=== PATIENT | female | born 1935 | race Caucasian/White ===

== ENCOUNTER → 2018-03-13 15:23 | Outpatient (CLI) | payer MEDICARE, OTHER, SELFPAY ==
[2018-03-13 16:33] LABS: Add Manual Diff / Slide Review NO; Alanine Aminotransferase 31 IU/L (9-52); Albumin 4.1 g/dL (3.5-5.0); Albumin Globulin Ratio 1.2 (1.0-2.8); Alkaline Phosphatase 70 U/L (38-126); Aspartate Aminotransferase 15 IU/L (14-36); BUN Creatinine Ratio 18.8 (6-22); Basophils Percent Auto 0.5 % (0-2); Bilirubin Total 0.5 mg/dL (0.2-1.3); Calcium 10.2 mg/dL (8.4-10.2); Eosinophils Percent Auto 1.1 % (2-4); Estimated Glomerular Filt Rate > 60.0 mL/min (>60); Globulin 3.3 g/dL (1.7-4.1); Glucose 90 mg/dL (80-110); HEMOLYSIS < 15 (0-50); Hemoglobin 13.9 g/dL (12.0-16.0); Lymphocytes Percent Auto 16.6 % (25-40); Mean Corpuscular HGB Conc 33.8 % (30-36); Mean Corpuscular Hemoglobin 29.4 PG (26-34); Monocytes Percent Auto 8.6 % (3-14); Neutrophils Absolute Auto 7900 /uL (3000-5900); Neutrophils Percent Auto 73.2 % (50-75); Platelet Count 367 X10^3/uL (150-400); Potassium 4.9 mmol/L (3.4-5.1); Red Blood Cell Count 4.71 X10^6/uL (4.0-5.2); Red Cell Distribution Width 15.3 % (11.6-14.8); Sodium 139 mmol/L (137-145); Total Protein 7.4 g/dL (6.3-8.2); White Blood Cell Count 10.9 X10^3/uL (4.5-11.0)
[2018-03-19 15:17] LABS: Abnormal Protein Band 1 0.4 g/dL (NONE DETECTED); Albumin 3.9 g/dL (3.8-4.8); Alpha 1 Globulin 0.3 g/dL (0.2-0.3); Alpha 2 Globulin 0.7 g/dL (0.5-0.9); Beta 1 Globulin 0.4 g/dL (0.4-0.6); Gamma Globulin 1.3 g/dL (0.8-1.7); Protein, Total 6.9 g/dL (6.1-8.1)
== END ==
PROVIDERS: Family Provider Family Medicine; PCP Family Medicine; Visit Provider Internal Medicine Hematology & Oncology
DX: D47.2 Monoclonal gammopathy (principal)
CPT/HCPCS: 36415; 80053; 84155; 84165; 85025

== ENCOUNTER → 2018-07-01 16:02 | Outpatient (CLI) | payer MEDICARE, OTHER, SELFPAY ==
[2018-07-01 17:30] LABS: Add Manual Diff / Slide Review NO; Basophils Percent Auto 0.4 % (0-2); Eosinophils Percent Auto 1.4 % (2-4); Hematocrit 39.1 % (36-46); Hemoglobin 12.8 g/dL (12.0-16.0); Lymphocytes Percent Auto 15.8 % (25-40); Mean Corpuscular HGB Conc 32.8 % (30-36); Mean Corpuscular Hemoglobin 29.3 PG (26-34); Mean Corpuscular Volume 89.3 fL (80-100); Monocytes Percent Auto 8.6 % (3-14); Neutrophils Absolute Auto 8400 /uL (3000-5900); Neutrophils Percent Auto 73.8 % (50-75); Platelet Count 379 X10^3/uL (150-400); Red Blood Cell Count 4.38 X10^6/uL (4.0-5.2); Red Cell Distribution Width 14.4 % (11.6-14.8); White Blood Cell Count 11.4 X10^3/uL (4.5-11.0)
[2018-07-01 18:05] LABS: Alanine Aminotransferase 17 IU/L (9-52); Albumin Globulin Ratio 1.4 (1.0-2.8); Alkaline Phosphatase 81 U/L (38-126); Aspartate Aminotransferase 13 IU/L (14-36); BUN Creatinine Ratio 23.8 (6-22); Bilirubin Total 0.4 mg/dL (0.2-1.3); Blood Urea Nitrogen 19 mg/dL (7-17); Carbon Dioxide 29 mmol/L (22-32); Chloride 105 mmol/L (98-107); Estimated Glomerular Filt Rate > 60.0 mL/min (>60); Globulin 2.9 g/dL (1.7-4.1); Glucose 93 mg/dL (80-110); HEMOLYSIS < 15 (0-50); Sodium 143 mmol/L (137-145); Total Protein 6.9 g/dL (6.3-8.2)
[2018-07-04 13:43] LABS: Abnormal Protein Band 1 0.4 g/dL (NONE DETECTED); Albumin 3.8 g/dL (3.8-4.8); Alpha 1 Globulin 0.3 g/dL (0.2-0.3); Alpha 2 Globulin 0.7 g/dL (0.5-0.9); Beta 1 Globulin 0.4 g/dL (0.4-0.6); Gamma Globulin 1.2 g/dL (0.8-1.7); Protein, Total 6.6 g/dL (6.1-8.1)
== END ==
PROVIDERS: Family Provider Family Medicine; PCP Family Medicine; Visit Provider Nurse Practitioner Gerontology
DX: D47.2 Monoclonal gammopathy (principal)
CPT/HCPCS: 36415; 80053; 84155; 84165; 85025

== ENCOUNTER 2018-07-15 15:20 | Oncology outpatient (ONC) | payer MEDICARE, OTHER, SELFPAY ==
[2018-07-15 16:15] VITALS: BP 135/58; PULSE 76; RESP 20; TEMP 37.1; O2SAT 98
--- NOTE | 2018-07-15 16:18 | ONC.PN ---
PN -Subjective Interval history: Diagnosis: MGUS Previous treatment: None Interval history Patient is an 83-year-old woman who returns today for follow-up of MGUS. Since her last visit here, she has been feeling reasonably well. She has had some swelling in her ankles and also has noticed some fatigue. Her appetite and energy level of otherwise been fair. She denies any worsening shortness of breath or cough. No chest pain. She has not noted any adenopathy. She has not been losing any weight. Her past medical history is otherwise notable for hypercholesterolemia hypertension and COPD. Her medications include Spiriva lorazepam atenolol albuterol Home Medications and Allergies Home Medications Medication Instructions Recorded Confirmed Type Fish Oil (Fish Oil 500 MG Softgel) 500 mg PO Q DAY #0 02/13/12 05/25/18 History ascorbic acid (vitamin C) 500 mg PO QDAY #0 02/13/12 05/25/18 History furosemide 20 mg PO QDAY #0 11/11/16 05/25/18 History atenolol 25 mg PO QDAY #30 tab 12/11/16 05/25/18 Rx polyethylene glycol 3350 [Miralax] 17 gm PO QDAY #12 gm 01/21/18 05/25/18 Rx [VITAMIN D] 1 tab PO QDAY #0 02/10/18 05/25/18 History potassium chloride ER 10 mEq 10 meq PO DAILY 05/25/18 05/25/18 History capsule,extended release Allergies Allergy/AdvReac Type Severity Reaction Status Date / Time piroxicam [PIROXICAM] Allergy Intermediate I FELT Verified 03/23/18 12:04 VERY CRAZY AND NERVOUS WITH IT codeine [CODEINE] Allergy Mild MOOD SWINGS Verified 03/23/18 12:04 Sulfa (Sulfonamide AdvReac Unknown gas Verified 03/23/18 12:04 Antibiotics) [SULFA (SULFONAMIDE ANTIBIOTICS)] Exam - Constitutional positive no acute distress, positive thin - Routine HEENT Exam Head: Present: normocephalic, atraumatic Eye: Present: EOMI, PERRL. Absent: conjunctival icterus, scleral injection ENT: Present: mucous membranes moist, oropharynx clear - Routine Neck Exam Present: supple. Absent: lymphadenopathy, thyromegaly - Routine Respiratory Exam Present: Clear to auscultation bilaterally. Absent: rales, wheezes - Routine Cardiovascular Exam Present: RRR, S1, S2. Absent: murmur - Routine Abdominal Exam Present: soft, normoactive bowel sounds. Absent: tenderness, organomegaly, mass - Routine Extremities Exam Present: edema. Absent: cyanosis, clubbing Comments: She has 1+ lower extremity edema more so on the left than on the right. - Routine Back/Spine Exam Back/Spine: Absent: paraspinal tenderness, vertebral tenderness - Routine Skin Exam Present: intact. Absent: petechiae, rash - Routine Neurological Exam Present: alert, oriented X3 - Routine Psychiatric Exam Present: normal affect, normal thought process Results - Labs On July 01 her white count was 11.4 hemoglobin 12.8 hematocrit 39.1 platelets [id number] %period% creatinine was 0.8. Calcium was 10.0. Serum protein electrophoresis showed a stable paraprotein at 0.4 grams/deciliter. - Imaging Additional studies: Procedures Injection of antibiotic (10/18/14) Injection of steroid (10/18/14) Injection or infusion of other therapeutic or prophylactic substance (10/18/14) Assessment and Plan (1) MGUS (monoclonal gammopathy of unknown significance) Problem details: Patient is an 83-year-old woman with a history of MGUS. She has no evidence of progression and no symptoms attributable to her paraprotein. She will return to clinic in 1 year for follow-up. Current visit: Yes Status: Acute
== END 2018-07-16 12:00 ==
PROVIDERS: Family Provider Family Medicine; PCP Family Medicine; Visit Provider Internal Medicine Hematology & Oncology
DX: D47.2 Monoclonal gammopathy (principal)
CPT/HCPCS: 99214

== ENCOUNTER 2018-08-26 12:48 | Emergency (ER) | payer MEDICARE, OTHER, SELFPAY ==
[2018-08-26 13:07] VITALS: BP 105/60; PULSE 75; RESP 16; TEMP 36.8; O2SAT 98
--- NOTE | 2018-08-26 13:55 | PC.NURSE ---
Pt has a triangular shaped skin tear on left wrist from her cat attempting to hang on to her last night so he didn't fall off couch.
--- NOTE | 2018-08-26 13:57 | ED.WOUNDLAC ---
HPI - Wound/Laceration <ALICIA Gee - Last Filed: 08/26/18 21:55> General Chief Complaint: Wound/Laceration Stated Complaint: left hand injury, skin tear Time Seen by Provider: 08/26/18 13:56 Source: patient Mode of arrival: ambulatory Limitations: no limitations History of Present Illness HPI narrative: 83-year-old female with history of COPD and is a former smoker here for complaint of a skin tear to her left wrist after her cat fell and accidentally scratched her to the left wrist. She reports that this incident happened last night. They treated the wound with antibiotic ointment last night. She states that there is some redness to the area around the skin tear. She denies any other injuries or concerns. She does not know when her last tetanus was. She denies any fevers or chills. No drainage from the wound. Related Data Home Medications Medication Instructions Recorded Confirmed Fish Oil (Fish Oil 500 MG Softgel) 500 mg PO Q DAY #0 02/13/12 07/15/18 ascorbic acid (vitamin C) 500 mg PO QDAY #0 02/13/12 07/15/18 albuterol sulfate 2 puff INHALATION Q4H PRN 07/15/18 07/15/18 aspirin 81 mg PO DAILY 07/15/18 07/15/18 atenolol 25 mg PO BID 07/15/18 07/15/18 beclomethasone dipropionate [Qvar 1 puff INHALATION QAM 07/15/18 07/15/18 RediHaler] calcium polycarbophil 625 mg PO DAILY 07/15/18 07/15/18 coenzyme Q10 30 mg PO DAILY 07/15/18 07/15/18 ergocalciferol (vitamin D2) 1 ml PO DAILY 07/15/18 07/15/18 lorazepam 0.25 mg PO BEDTIME PRN 07/15/18 07/15/18 salmeterol 1 inh INHALATION BID 07/15/18 07/15/18 tiotropium bromide [Spiriva with 1 cap INHALATION DAILY 07/15/18 07/15/18 HandiHaler] Allergies Allergy/AdvReac Type Severity Reaction Status Date / Time piroxicam [PIROXICAM] Allergy Intermediate I FELT Verified 03/23/18 12:04 VERY CRAZY AND NERVOUS WITH IT codeine [CODEINE] Allergy Mild MOOD SWINGS Verified 03/23/18 12:04 Sulfa (Sulfonamide AdvReac Unknown gas Verified 03/23/18 12:04 Antibiotics) [SULFA (SULFONAMIDE ANTIBIOTICS)] Review of Systems <ALICIA Gee - Last Filed: 08/26/18 21:55> Constitutional Denies chills, Denies fever(s), Denies lethargy and Denies weakness Eyes Denies change in vision, Denies eye discharge, Denies irritation and Denies loss of vision ENT Ears, Nose, Mouth, and Throat: Denies change in voice, Denies neck pain and Denies sore throat Cardiovascular Denies chest pain, Denies irregular heart rhythm, Denies lightheadedness, Denies palpitations, Denies dyspnea, Denies dyspnea on exertion and Denies orthopnea Respiratory Denies cough, Denies dyspnea, Denies dyspnea on exertion and Denies wheezing Gastrointestinal Gastrointestinal: Denies abdominal pain, Denies change in bowel habits, Denies diarrhea, Denies nausea and Denies vomiting Genitourinary Denies hematuria, Denies flank pain, Denies urinary incontinence and Denies urinary urgency Musculoskeletal Denies neck pain Comments: Skin tear to left wrist Integumentary/Breasts Denies pruritus, Denies erythema, Denies rash and Denies wounds Neurologic Denies confusion, Denies loss of vision and Denies weakness Psychiatric Denies anxiety, Denies confusion, Denies depression, Denies homicidal ideation and Denies suicidal ideation Endocrine Denies palpitations Hematologic/Lymphatic Denies easy bruising Allergic/Immunologic Denies wheezing Exam <ALICIA Gee - Last Filed: 08/26/18 21:55> Initial Vital Signs Initial Vital Signs: Vital Signs Temperature 98.3 F 08/26/18 13:07 Pulse Rate 75 08/26/18 13:07 Respiratory Rate 16 08/26/18 13:07 Blood Pressure 105/60 08/26/18 13:07 Pulse Oximetry 98 08/26/18 13:07 Const General: cooperative and well developed Nutritional Appearance: well nourished Orientation: alert, awake, oriented x3 and not confused HENMT Mouth: oral mucosae normal and moist mucous membranes Eyes Conjunctivae: conjunctivae normal Sclera: sclerae normal Pupils: PERRL EOM: EOM intact bilaterally Resp Effort & Inspection: normal respiratory effort, able to speak in complete sentences, no respiratory distress and no use of accessory muscles Auscultation: clear to auscultation bilaterally, no rales, no rhonchi and no wheezes Cardio Rate: regular rate Rhythm: regular rhythm Heart Sounds: no click, no gallops, no murmurs and no rubs Pulses: normal peripheral pulses Skin General: no rashes or lesions noted, No jaundice and No petechiae Neuro General: alert, oriented x3, gait normal and no focal motor deficits Speech: speech normal Extrem General: full ROM, no clubbing, cyanosis or edema, no pedal edema and no calf tenderness Other: 2 cm x 2 cm angled skin tear to the dorsal aspect of the left wrist. Ecchymosis to the surrounding area. No erythema. No signs of infection. Distal sensation is intact. Full range of motion intact distally distal pulses are intact. <Bhaskar Lr DO - Last Filed: 08/30/18 07:13> Initial Vital Signs Initial Vital Signs: Vital Signs Temperature 98.3 F 08/26/18 13:07 Pulse Rate 75 08/26/18 13:07 Respiratory Rate 16 08/26/18 13:07 Blood Pressure 105/60 08/26/18 13:07 Pulse Oximetry 98 08/26/18 13:07 Course <ALICIA Gee - Last Filed: 08/26/18 21:55> Orders Ordered: Discontinued Medications Diphtheria/Tetanus/Acell Pertussis (Adacel) 0.5 ml IM .ONCE ONE Stop: 08/26/18 14:15 Last Admin: 08/26/18 14:21 Dose: 0.5 ml Vital Signs - 8 hr 08/26/18 14:59 Pulse Rate 69 Respiratory Rate 16 Blood Pressure 126/64 Pulse Oximetry 99 <Bhaskar Lr DO - Last Filed: 08/30/18 07:13> Orders Ordered: Discontinued Medications Diphtheria/Tetanus/Acell Pertussis (Adacel) 0.5 ml IM .ONCE ONE Stop: 08/26/18 14:15 Last Admin: 08/26/18 14:21 Dose: 0.5 ml Vital Signs - 8 hr 08/26/18 14:59 Pulse Rate 69 Respiratory Rate 16 Blood Pressure 126/64 Pulse Oximetry 99 MDM - Wound/Laceration <ALICIA Gee - Last Filed: 08/26/18 21:55> MDM Narrative Medical decision making narrative: Skin tear to the dorsal aspect of the left wrist was cleansed with 500 mL of normal saline. Skin tear was closed with Steri-Strips. Tetanus was updated in the emergency room today. No signs of infection at this time. There is ecchymoses to the surrounding area. follow up with primary care provider in the next few days for re-evaluation. For any worsening symptoms return to the emergency room. Discharge Plan Departure Patient Disposition: Home Clinical Impression: Tear of skin of left wrist Discharge Date/Time: 08/26/18 14:58 Interventions: ED Discharge Assessment Last Done: 08/26/18 14:59 Instructions: DI for Laceration Repair Steri-Strips Activity Restrictions/Additional Instructions: tetanus was updated in the emergency room today. Skin tear to the left wrist was irrigated and then closed with Steri-Strips. Try to keep wound area clean and dry over the next several days to allow wound to heal. Follow up with her primary care provider in the next couple days for re-evaluation. For any worsening symptoms such as signs of infection return to the emergency room. Prescriptions: No Action ascorbic acid (vitamin C) 500 MG tablet 500 mg PO QDAY Qty: 0 RF: 0 Fish Oil (Fish Oil 500 MG Softgel) 500 mg PO Q DAY Qty: 0 RF: 0 aspirin 81 mg Tablet,Delayed Release (Dr/Ec) 81 mg PO DAILY RF: 0 lorazepam 0.5 mg Tablet 0.25 mg PO BEDTIME PRN (Reason: Insomnia) RF: 0 calcium polycarbophil 625 mg Tablet 625 mg PO DAILY RF: 0 salmeterol 50 mcg/dose Blister With Device 1 inh INHALATION BID RF: 0 ergocalciferol (vitamin D2) 8,000 unit/mL Drops 1 ml PO DAILY RF: 0 coenzyme Q10 30 mg/5 mL Liquid 30 mg PO DAILY RF: 0 tiotropium bromide [Spiriva with HandiHaler] 18 mcg Capsule, W/Inhalation Device 1 cap INHALATION DAILY RF: 0 albuterol sulfate 90 mcg/actuation Aerosol Powdr Breath Activated 2 puff INHALATION Q4H PRN (Reason: Bronchospasm) RF: 0 beclomethasone dipropionate [Qvar RediHaler] 80 mcg/actuation Hfa Aerosol Breath Activated 1 puff INHALATION QAM RF: 0 atenolol 25 MG tablet 25 mg PO BID RF: 0 Referrals: Isaura Woods DO [Primary Care Provider] - <Bhaskar Lr DO - Last Filed: 08/30/18 07:13> Cosign ED Attending Cosvinature Attestation: I was available for consultation during this patient's emergency department encounter
[2018-08-26] MEDS: TET,DIPH,PERTUSS(ACELL),VAC/PF 0.5 ML SYRINGE IM (14:21)
[2018-08-26 14:59] VITALS: BP 126/64; PULSE 69; RESP 16; O2SAT 99
== END 2018-08-26 14:58 | disposition home or self-care (01) ==
PROVIDERS: Emergency Provider Nurse Practitioner Family; Family Provider Family Medicine; PCP Family Medicine
DX: S61.512A Laceration without foreign body of left wrist, initial encounter (principal); W55.03XA Scratched by cat, initial encounter
CPT/HCPCS: 90471; 99283; 90715

== ENCOUNTER → 2018-11-20 12:48 | Outpatient (CLI) | payer MEDICARE, OTHER, SELFPAY ==
--- NOTE | 2018-11-20 | DI.CT.S_ITS ---
PROCEDURE: CT CHEST WO CON INDICATIONS: Followup nodular infiltrates seen on previous CT. Followup pulmonary nodules. TECHNIQUE: Noncontrast 5 mm thick sections acquired from the pulmonary apices to the posterior costophrenic angles. 7 mm thick coronal and sagittal MIP reformats were then acquired. For radiation dose reduction, the following was used: automated exposure control, adjustment of mA and/or kV according to patient size. COMPARISON: [facility], CT, PE STUDY (CTA CHEST), 12/22/2015, 11:18. FINDINGS: Image quality: Excellent. Lungs and pleura: Moderate to severe centrilobular emphysema is noted. Previous subtle reticulonodular infiltrates in the right middle lobe and lower lobe have resolved. No suspicious pulmonary nodules. Mediastinum: Coronary artery calcifications. Normal heart size. No suspicious mediastinal adenopathy. Calcified subcarinal lymph nodes are consistent with chronic granulomatous disease. Thoracic aorta and central pulmonary arteries are normal in size. Esophagus is normal in caliber. No hiatal hernia. Bones and chest wall: No suspicious bony lesions. No vertebral body compression fractures. No axillary or supraclavicular adenopathy by size criteria. Thyroid gland is unremarkable. Abdomen: Visualized upper abdominal solid organs and bowel loops appear normal in the absence of contrast. IMPRESSION: 1. Moderate to severe centrilobular emphysema. 2. Coronary artery disease. 3. Resolution of previous subtle reticulonodular infiltrates. No suspicious pulmonary nodules. Dictated by: Rodney Torres M.D. on 11/20/2018 at 13:48 Approved by: Rodney Torres M.D. on 11/20/2018 at 14:02
== END ==
PROVIDERS: Family Provider Family Medicine; PCP Family Medicine; Visit Provider Internal Medicine Critical Care Medicine
DX: R91.8 Other nonspecific abnormal finding of lung field (principal); J43.2 Centrilobular emphysema; I25.10 Atherosclerotic heart disease of native coronary artery without angina pectoris
CPT/HCPCS: 71250

== ENCOUNTER → 2019-05-12 13:54 | Outpatient (CLI) | payer MEDICARE, OTHER, SELFPAY ==
--- NOTE | 2019-05-12 | DI.RAD.S_ITS ---
PROCEDURE: XR ABDOMEN 1V INDICATIONS: CONSTIPATION TECHNIQUE: One view of the abdomen acquired. COMPARISON: [facility], , ABDOMEN 2 VIEW, 02/12/2018, 15:15. FINDINGS: Surgical changes and devices: None. Bowel: Bowel gas pattern is normal except for generalized colonic obstipation there is moderate in severity and present bilaterally.. Soft tissues: No suspicious abdominal calcifications. Visualized solid organ contours appear normal in size. Bones: No suspicious bony lesions. Prominent convex rightward scoliosis is centered at the L2-3 level of the lumbosacral spine. Hip joint osteoarthritis is severe on the left and mild to moderate on the right. IMPRESSION: Moderate colonic obstipation bilaterally, through the abdomen and pelvis. 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 Dictated by: Marco Antonio Ferrera M.D. on 05/12/2019 at 17:34 Approved by: Marco Antonio Ferrera M.D. on 05/12/2019 at 17:36
== END ==
PROVIDERS: Family Provider Family Medicine; PCP Family Medicine; Visit Provider Student in an Organized Health Care Education/Training Program
DX: K59.00 Constipation, unspecified (principal); M16.12 Unilateral primary osteoarthritis, left hip; M41.9 Scoliosis, unspecified
CPT/HCPCS: 74018

== ENCOUNTER 2019-05-25 21:57 | Inpatient (IN) | payer MEDICARE, OTHER, SELFPAY ==
[2019-05-25 22:03] VITALS: BP 172/69; PULSE 95; RESP 18; TEMP 36.9; O2SAT 95; BMI 20.5
--- NOTE | 2019-05-25 22:07 | DI.CT.S_ITS ---
PROCEDURE: CT ABDOMEN PELVIS W CON INDICATIONS: severe abdominal pain TECHNIQUE: After the administration of intravenous contrast, 5 mm thick sections acquired from the diaphragm to the symphysis. 5 mm coronal and sagittal reformats were acquired. For radiation dose reduction, the following was used: automated exposure control, adjustment of mA and/or kV according to patient size. COMPARISON: [facility], CT, ABDOMEN/PELVIS WITH CONTRAST, 02/13/2018, 15:07. FINDINGS: Image quality: Excellent. ABDOMEN: Lung bases: Lung bases are clear. Heart size is normal. Solid organs: Liver is normal in size and enhancement. Gallbladder is unremarkable. Biliary system is non dilated. Pancreas enhances normally. Spleen is normal in size and enhancement. No adrenal nodules. Kidneys demonstrate normal size and enhancement, without hydronephrosis. Peritoneum and bowel: There are abnormally dilated loops of small bowel in the midabdomen measuring up to 4 cm, with fecalization of small bowel contents, and a transition point in the mid abdomen. Findings are consistent with partial small bowel obstruction. Colonic loops are normal in caliber. Sigmoid diverticulosis without evidence of diverticulitis. No free fluid or air. Nodes and vessels: No retroperitoneal or mesenteric adenopathy by size criteria. Aorta and inferior vena cava are normal in size. Miscellaneous: No ventral hernias. PELVIS: Genitourinary: Bladder wall thickness is normal. Miscellaneous: No inguinal hernias or adenopathy. Bones: No suspicious bony lesions. No vertebral body compression fractures. IMPRESSION: 1. Findings are consistent with a partial small bowel obstruction. There is a transition point at the level of the ileum. Comment: Final report is concurrent with preliminary interpretation provided by [facility]. Dictated by: Rodney Torres M.D. on 05/26/2019 at 8:05 Approved by: Rodney Torres M.D. on 05/26/2019 at 8:13
[2019-05-25] MEDS: ONDANSETRON 4 MG/2 ML INJ IV (22:15)
[2019-05-25 22:17] LABS: Add Manual Diff / Slide Review NO; Basophils Absolute Auto 0 /uL (0-100); Basophils Percent Auto 0.3 % (0-2); Eosinophils Absolute Auto 100 /uL (0-450); Eosinophils Percent Auto 0.4 % (2-4); Hematocrit 36.5 % (36-46); Hemoglobin 12.1 g/dL (12.0-16.0); Lymphocytes Absolute Auto 1100 /uL (1100-4500); Lymphocytes Percent Auto 7.2 % (25-40); Mean Corpuscular HGB Conc 33.3 % (30-36); Mean Corpuscular Hemoglobin 28.7 PG (26-34); Mean Corpuscular Volume 86.4 fL (80-100); Monocytes Absolute Auto 1100 /uL (0-900); Monocytes Percent Auto 7.4 % (3-14); Neutrophils Absolute Auto 12800 /uL (1500-7000); Neutrophils Percent Auto 84.7 % (50-75); Platelet Count 349 X10^3/uL (150-400); Red Blood Cell Count 4.22 X10^6/uL (4.0-5.2); Red Cell Distribution Width 15.1 % (11.6-14.8); White Blood Cell Count 15.1 X10^3/uL (4.5-11.0)
[2019-05-25] MEDS: HYDROMORPHONE 1 MG INJ 0.5 MG IV ×2 (22:22→23:20)
[2019-05-25 22:26] LABS: Alanine Aminotransferase 12 IU/L (9-52); Albumin 4.1 g/dL (3.5-5.0); Albumin Globulin Ratio 1.3 (1.0-2.8); Alkaline Phosphatase 79 U/L (38-126); Aspartate Aminotransferase 16 IU/L (14-36); BUN Creatinine Ratio 17.1 (6-22); Bilirubin Total 0.9 mg/dL (0.2-1.3); Blood Urea Nitrogen 12 mg/dL (7-17); Calcium 9.5 mg/dL (8.4-10.2); Carbon Dioxide 27 mmol/L (22-32); Chloride 98 mmol/L (98-107); Estimated Glomerular Filt Rate > 60.0 mL/min (>60); Globulin 3.1 g/dL (1.7-4.1); Glucose 135 mg/dL (80-110); HEMOLYSIS < 15 (0-50); Lipase 92 U/L (23-300); Potassium 4.3 mmol/L (3.4-5.1); Sodium 134 mmol/L (137-145); Total Protein 7.2 g/dL (6.3-8.2)
[2019-05-25] MEDS: SODIUM CHLORIDE 0.9% 1,000 ML 150 ML IV (22:27)
--- NOTE | 2019-05-25 22:33 | ED_ITS ---
HPI - Abdominal Pain General Chief Complaint: Abdominal Pain Stated Complaint: stomach pain Time Seen by Provider: 05/25/19 21:58 Source: patient and family Mode of arrival: ambulatory Limitations: no limitations History of Present Illness HPI narrative: 84-year-old female's smoker with history of COPD and hypertension presents with a chief complaint of severe central abdominal pain over the past few days. It is unclear when her last bowel movement was with been quite some time, she has taken 3 suppositories without relief. She has had trouble with constipation off and on for many months but states the symptoms are different and of never been so severe. She has had nausea and multiple episodes of vomiting. She denies fever or chills. She has a poor appetite. Her last colonoscopy was in July and she does not recall what the findings were MD complaint: abdominal pain Onset (ago): day(s) Pain Consistency: constant Location: diffuse Severity: severe Quality: cramping and stabbing Radiation: none Migration to: no migration Relieving factors: nothing Exacerbating factors: movement Associated symptoms: nausea and vomiting Related Data Home Medications Medication Instructions Recorded Confirmed ascorbic acid (vitamin C) 1,000 mg PO QDAY #0 02/13/12 05/26/19 albuterol sulfate 2 puff INHALATION Q4H PRN 07/15/18 05/26/19 atenolol 25 mg PO QAM 07/15/18 05/26/19 beclomethasone dipropionate [Qvar 2 puff INHALATION QAM 07/15/18 05/26/19 RediHaler] calcium polycarbophil 625 mg PO DAILY 07/15/18 08/30/18 ergocalciferol (vitamin D2) 1 ml PO DAILY 07/15/18 08/30/18 salmeterol 1 inh INHALATION BID 07/15/18 05/26/19 tiotropium bromide [Spiriva with 1 cap INHALATION DAILY 07/15/18 05/26/19 HandiHaler] beclomethasone dipropionate [Qvar 1 puff INHALATION BID 05/26/19 05/26/19 RediHaler] furosemide 20 mg PO DAILY 05/26/19 05/26/19 Allergies Allergy/AdvReac Type Severity Reaction Status Date / Time piroxicam [PIROXICAM] Allergy Intermediate I FELT Verified 08/30/18 13:34 VERY CRAZY AND NERVOUS WITH IT codeine [CODEINE] Allergy Mild MOOD SWINGS Verified 08/30/18 13:34 Sulfa (Sulfonamide AdvReac Unknown gas Verified 08/30/18 13:34 Antibiotics) [SULFA (SULFONAMIDE ANTIBIOTICS)] Review of Systems Constitutional Denies chills, Denies fever(s), Denies lethargy and Denies weakness Eyes Denies change in vision, Denies eye discharge, Denies irritation and Denies loss of vision ENT Ears, Nose, Mouth, and Throat: Denies change in voice, Denies neck pain and Denies sore throat Cardiovascular Denies chest pain, Denies irregular heart rhythm, Denies lightheadedness, Denies palpitations, Denies dyspnea, Denies dyspnea on exertion and Denies orthopnea Respiratory Denies cough, Denies dyspnea, Denies dyspnea on exertion and Denies wheezing Gastrointestinal Gastrointestinal: Reports abdominal pain, Denies change in bowel habits, Denies diarrhea, Reports nausea and Reports vomiting Genitourinary Denies hematuria, Denies flank pain, Denies urinary incontinence and Denies urinary urgency Musculoskeletal Denies neck pain Integumentary/Breasts Denies pruritus, Denies erythema, Denies rash and Denies wounds Neurologic Denies confusion, Denies loss of vision and Denies weakness Psychiatric Denies anxiety, Denies confusion, Denies depression, Denies homicidal ideation and Denies suicidal ideation Endocrine Denies palpitations Hematologic/Lymphatic Denies easy bruising Allergic/Immunologic Denies wheezing [facility] Medical History Diverticulosis (Chronic) Surgical History History of tonsillectomy Status post hysterectomy Social History Smoking Status: Former smoker Tobacco: How many years used: 20 alcohol intake: never Social History Smoking Status: Former smoker Tobacco: How many years used: 20 alcohol intake: never Exam Narrative Exam Narrative: GENERAL: 84F appears stated age, clearly uncomfortable, holding emesis bag HEAD: Atraumatic. Normocephalic. No temporal or scalp tenderness. EYES: Pupils equal round and reactive. Extraocular motions intact. No scleral icterus. No injection or drainage. ENT: Nose without bleeding, purulent drainage or septal hematoma. Throat without erythema, tonsillar hypertrophy or exudate. Uvula midline. Airway patent. NECK: Trachea midline. No JVD or lymphadenopathy. Supple, nontender, no meningeal signs. CARDIOVASCULAR: Regular rate and rhythm without murmurs, gallops, or rubs. RESPIRATORY: Clear to auscultation. Breath sounds equal bilaterally. No wheezes, rales, or rhonchi. GASTROINTESTINAL: Abdomen soft, generalized tenderness, nondistended. No hepato-splenomegaly, or palpable masses. No guarding. EXTREMITIES: No clubbing, cyanosis, or edema. No joint tenderness, effusion, or edema noted. BACK: Nontender without deformity or crepitance. No flank tenderness. NEURO: AOx3. SKIN: No rash or erythema. Initial Vital Signs Initial Vital Signs: Vital Signs Temperature 98.5 F 05/25/19 22:03 Pulse Rate 95 H 05/25/19 22:03 Respiratory Rate 18 05/25/19 22:03 Blood Pressure 172/69 H 05/25/19 22:03 Pulse Oximetry 95 05/25/19 22:03 Course Orders Ordered: ED Orders 05/25/19 22:07 CT abdomen pelvis w con Stat 05/25/19 22:11 Complete Blood Count AUTO DIFF Stat Comprehensive Metabolic Panel Stat Lipase Stat 05/26/19 00:02 Lactate (Lactic Acid) Stat 05/26/19 00:03 Chest [XR chest 1V] Urgent Sodium Chloride (Normal Saline 0.9%) 1,000 mls @ 150 mls/hr IV CONT GOLDEN Last Admin: 05/25/19 22:27 Dose: 150 mls/hr Piperacillin/Tazobactam/Dextrose (Zosyn) 3.375 gm in 50 mls @ 100 mls/hr IV Q6H GOLDEN Last Admin: 05/26/19 00:23 Dose: 100 mls/hr Ondansetron HCl (Zofran) 4 mg IV Q4HR PRN PRN Reason: Nausea And Vomiting Last Admin: 05/25/19 22:15 Dose: 4 mg Discontinued Medications Hydromorphone HCl (Dilaudid) 0.5 mg IV NOW ONE Stop: 05/25/19 22:08 Last Admin: 05/25/19 22:15 Dose: Not Given Hydromorphone HCl (Dilaudid) 0.5 mg IV NOW ONE Stop: 05/25/19 22:15 Last Admin: 05/25/19 22:22 Dose: 0.5 mg Hydromorphone HCl (Dilaudid) 0.5 mg IV NOW ONE Stop: 05/25/19 23:12 Last Admin: 05/25/19 23:16 Dose: Not Given Hydromorphone HCl (Dilaudid) 0.5 mg IV NOW ONE Stop: 05/25/19 23:14 Last Admin: 05/25/19 23:20 Dose: 0.5 mg Consultations Consultation #1: upon receipt of CT, call placed to Dr. Monahan whom asks that we place an NG, start ABX, IVF, and continued pain control. Likely will need surgery, but no indication of an emergent need. Consultation #2: call back to Dr. Monahan, little relief of pain with Dilaudid x2, NG, perhaps even worsening. Lactate is normal, NG has some output, he notes these findings and is planning a likely surgery later today Vital Signs - 8 hr 05/25/19 22:03 05/25/19 22:56 05/25/19 23:34 Temperature 98.5 F Pulse Rate 95 H 89 95 H Respiratory Rate 18 10 L 15 Blood Pressure 172/69 H Blood Pressure [Left Arm] 175/62 H 184/94 H Pulse Oximetry 95 93 93 05/26/19 00:02 05/26/19 00:33 Temperature Pulse Rate 97 H 92 H Respiratory Rate 14 18 Blood Pressure Blood Pressure [Left Arm] 189/81 H 194/84 H Pulse Oximetry 92 93 MDM - Abdominal Pain Lab Data Result diagrams: 05/25/19 22:11 05/25/19 22:11 Lab Results 05/25/19 05/25/19 05/26/19 Range/Units 22:11 22:11 00:02 WBC 15.1 H (4.5-11.0) X10^3/uL RBC 4.22 (4.0-5.2) X10^6/uL Hgb 12.1 (12.0-16.0) g/dL Hct 36.5 (36-46) % MCV 86.4 (80-100) fL MCH 28.7 (26-34) PG MCHC 33.3 (30-36) % RDW 15.1 H (11.6-14.8) % Plt Count 349 (150-400) X10^3/uL Neut % (Auto) 84.7 H (50-75) % Lymph % (Auto) 7.2 L (25-40) % [place] % (Auto) 7.4 (3-14) % Eos % (Auto) 0.4 L (2-4) % Baso % (Auto) 0.3 (0-2) % Neut # (Auto) 72949 H (3706-5163) /uL Lymph # (Auto) 1100 (2364-1531) /uL [place] # (Auto) 1100 H (0-900) /uL Eos # (Auto) 100 (0-450) /uL Baso # (Auto) 0 (0-100) /uL Sodium 134 L (137-145) mmol/L Potassium 4.3 (3.4-5.1) mmol/L Chloride 98 (98-107) mmol/L Carbon Dioxide 27 (22-32) mmol/L BUN 12 (7-17) mg/dL Creatinine 0.70 (0.52-1.04) mg/dL Estimated GFR > 60.0 (>60) mL/min BUN/Creatinine Ratio 17.1 (6-22) Glucose 135 H (80-110) mg/dL Lactate 0.8 (0.7-2.1) mmol/L Calcium 9.5 (8.4-10.2) mg/dL Total Bilirubin 0.9 (0.2-1.3) mg/dL AST 16 (14-36) IU/L ALT 12 (9-52) IU/L Alkaline Phosphatase 79 (38-126) U/L Total Protein 7.2 (6.3-8.2) g/dL Albumin 4.1 (3.5-5.0) g/dL Globulin 3.1 (1.7-4.1) g/dL Albumin/Globulin Ratio 1.3 (1.0-2.8) Lipase 92 (23-300) U/L Imaging Data CT scan - abdomen: Radiologist's impression: Distension and fecalization of central abdominal small bowel loops is noted. This could be due to a severe focal ileus, or partial small bowel obstruction with transition point in the central abdomen Discharge Plan Departure Patient Disposition: Admitted As Inpatient Clinical Impression: Partial obstruction of small intestine Admit Date/Time: 05/25/19 23:56 Admit Provider: Lukasz Monahan
[2019-05-25 22:56] VITALS: BP 175/62; PULSE 89; RESP 10; O2SAT 93
[2019-05-25 23:34] VITALS: BP 184/94; PULSE 95; RESP 15; O2SAT 93
[2019-05-26] VITALS (10 sets, daily range): BP systolic 120–194; BP diastolic 56–86; PULSE 82–97; RESP 14–20; TEMP 36.6–37.4; O2SAT 92–98; BMI 20.5
--- NOTE | 2019-05-26 00:03 | DI.RAD.S_ITS ---
PROCEDURE: XR CHEST 1V INDICATIONS: ng tube placement TECHNIQUE: One view of the chest was acquired. COMPARISON: [facility], , CHEST 2 VIEW, 01/06/2018, 10:47. FINDINGS: Surgical changes and devices: NG tube in place with its tip projecting just beyond the GE junction. Lungs and pleura: Lungs are clear. No pleural effusions or pneumothorax. Mediastinum: Mediastinal contours appear normal. Heart size is normal. Bones and chest wall: No suspicious bony lesions. Overlying soft tissues appear unremarkable. IMPRESSION: Suggest advancement of NG tube. No evidence acute pulmonary process. Dictated by: Rodney Torres M.D. on 05/26/2019 at 9:37 Approved by: Rodney Torres M.D. on 05/26/2019 at 9:38
[2019-05-26] MEDS: PIPERACILLIN-TAZO 3.375 GM/50 ML FROZ.PIGGY IV ×5 (00:23→23:03)
[2019-05-26 00:31] LABS: Lactate (Lactic Acid) 0.8 mmol/L (0.7-2.1)
[2019-05-26] MEDS: HYDROMORPHONE 0.5 MG INJ IV ×4 (01:44→21:21)
[2019-05-26] MEDS: SODIUM CHLORIDE 0.9% 1,000 ML 125 ML IV ×2 (01:48→07:57)
[2019-05-26] MEDS: ONDANSETRON 4 MG/2 ML INJ IV ×3 (02:51→12:04)
--- NOTE | 2019-05-26 04:56 | PC.NURSE ---
Patient arrived on the floor around 0110 with severe abdominal pain 7/10 with nausea. Gave Dilaudid 0.5mg at 0144 and the patient stated that her pain was still 6/10. Patient fell asleep an hour after the medication administration and is continuing to sleep comfortably.
--- NOTE | 2019-05-26 09:16 | P.HP_ITS ---
History of Present Illness Date Patient Seen: 05/26/19 Time Patient Seen: 09:10 Chief complaint: stomach pain Narrative: 84-year-old white female with severe COPD admitted last night through the emergency room about midnight with a 1 day history of abdominal pain and vomiting. CT scan in the ER last night shows either adynamic ileus or partial small-bowel obstruction. After being in the hospital for the last few hours with nasogastric decompression she is feeling much better actually has no abdominal pain. Patient History Medical History Diverticulosis (Chronic) Surgical History History of tonsillectomy Status post hysterectomy Social History household members: family Smoking Status: Former smoker Tobacco: How many years used: 20 alcohol intake: never Family & Social History Social History: household members family Safety & Behavioral: Feels Safe in Current Yes Environment Suicidal Ideation Description None Suicide Plan Description No Plan Tobacco & Substance use: Smoking Status Former smoker alcohol intake never alcohol intake frequency holiday/special occasion Substance Use Type does not use Meds Home Medications Medication Instructions Recorded Confirmed Type ascorbic acid (vitamin C) 1,000 mg PO QDAY #0 02/13/12 05/26/19 History albuterol sulfate 2 puff INHALATION Q4H PRN 07/15/18 05/26/19 History atenolol 25 mg PO QAM 07/15/18 05/26/19 History beclomethasone dipropionate [Qvar 2 puff INHALATION QAM 07/15/18 05/26/19 History RediHaler] calcium polycarbophil 625 mg PO DAILY 07/15/18 08/30/18 History ergocalciferol (vitamin D2) 1 ml PO DAILY 07/15/18 08/30/18 History salmeterol 1 inh INHALATION BID 07/15/18 05/26/19 History tiotropium bromide [Spiriva with 1 cap INHALATION DAILY 07/15/18 05/26/19 History HandiHaler] beclomethasone dipropionate [Qvar 1 puff INHALATION BID 05/26/19 05/26/19 History RediHaler] furosemide 20 mg PO DAILY 05/26/19 05/26/19 History Allergies Allergy/AdvReac Type Severity Reaction Status Date / Time piroxicam [PIROXICAM] Allergy Intermediate I FELT Verified 08/30/18 13:34 VERY CRAZY AND NERVOUS WITH IT codeine [CODEINE] Allergy Mild MOOD SWINGS Verified 08/30/18 13:34 Sulfa (Sulfonamide AdvReac Unknown gas Verified 08/30/18 13:34 Antibiotics) [SULFA (SULFONAMIDE ANTIBIOTICS)] Review of Systems Review of Systems All systems reviewed & are unremarkable except as noted in HPI and below Exam Vital Signs (past 8 hours): - 05/26/19 01:10 05/26/19 06:05 05/26/19 08:20 Temperature 97.9 F 98 F 98.1 F Pulse Rate 93 H 91 H 82 Respiratory Rate 17 17 16 Blood Pressure 176/86 H 120/57 L 143/63 H Pulse Oximetry 98 93 95 Oxygen Delivery Method Room Air Oxygen Flow Rate 0 Narrative Exam Narrative: Patient is alert and oriented with no abdominal pain. Vital signs are stable. Lungs very distant breath sounds no rales or wheezes this morning Heart regular rhythm no murmur Abdomen is not distended there are infrequent bowel sounds. There is no focal tenderness at this time. Objective Labs Result Diagrams: 05/25/19 22:11 05/25/19 22:11 Labs: Laboratory Results - last 24 hr 05/25/19 05/25/19 05/26/19 22:11 22:11 00:02 WBC 15.1 H RBC 4.22 Hgb 12.1 Hct 36.5 MCV 86.4 MCH 28.7 MCHC 33.3 RDW 15.1 H Plt Count 349 Neut % (Auto) 84.7 H Lymph % (Auto) 7.2 L [place] % (Auto) 7.4 Eos % (Auto) 0.4 L Baso % (Auto) 0.3 Neut # (Auto) 62436 H Lymph # (Auto) 1100 [place] # (Auto) 1100 H Eos # (Auto) 100 Baso # (Auto) 0 Sodium 134 L Potassium 4.3 Chloride 98 Carbon Dioxide 27 BUN 12 Creatinine 0.70 Estimated GFR > 60.0 BUN/Creatinine Ratio 17.1 Glucose 135 H Lactate 0.8 Calcium 9.5 Total Bilirubin 0.9 AST 16 ALT 12 Alkaline Phosphatase 79 Total Protein 7.2 Albumin 4.1 Globulin 3.1 Albumin/Globulin Ratio 1.3 Lipase 92 Assessment & Plan Assessment & Plan narrative: Patient has severe COPD. She has either adynamic ileus or partial small-bowel obstruction. We will employ conservative therapy in this patient who is a very poor surgical risk. We will continue nasogastric decompression colonic Stimulation with enemas and suppositories. Repeat plain films of the abdomen are ordered for tomorrow. I will reassess the situation after reviewing films tomorrow. Patient understands and has no questions about the care offered. She is in agreement. Quality VTE Deep Vein Thrombosis/Pulmonary Embolism Present on Admission: No
[2019-05-26] MEDS: BISACODYL 10 MG SUPP PR ×2 (10:20→21:21)
--- NOTE | 2019-05-26 11:31 | CM.IDA ---
Initial DCP Assessment Note: Pt is an 84 yo female, resident of [place]. Pt presents w/abd pain and vomiting, suspected to have a SBO, Dr Monahan attending. PCP: Isaura Woods Payer: Medicare/Commercial Ins. Spoke w/RN Tameka before entering . Pt has been very uncomfortable this morning, NG has assisted w/abd pain, pt now complaining of nausea. Bowell program in place today to clear pt of any stool that might be impacted. Met in w/ pt, spouse Prema and adult son Prema (Rinku), explained SW role. All live in [place]. Pt appears very uncomfortable and not wanting to talk much. Pt and spouse are indp at baseline, spouse also doesn't say much, states everything on the home front is okay. No stated concerns. Pt/family know to contact this DIRECTOR OF PATIENT SAFETY if DC needs or concerns arise, this DIRECTOR OF PATIENT SAFETY expects pt will return home once she is feeling better and is medically cleared for DC. Following closely. Likely return home upon DC. GABY Campbell Discharge Planning/Care Management CM Discharge Assessment Start: 05/26/19 11:25 Freq: Status: Active Protocol: Document 05/26/19 11:28 KELBY (Rec: 05/26/19 11:31 KELBY [id number]) Discharge Planning Assessment Assigned Police Superintendent GABY Prescott DPOA/Assigned Designee Name Rinku Mcleod, spouse Contact Information [phone] cell Advance Directives? Yes History Provided By Patient Family Member Significant Other Prior Living Arrangements House Household Members family Independent with ADL's Yes Is patient alert and oriented? Yes Barriers to Discharge No Discharge Plan Home Transportation Arrangement Family Referrals Initiated None needed Whiteboard Updated in Patient Room with Yes name and ext. # of Police Superintendent Review Status In Process
--- NOTE | 2019-05-26 12:00 | PT.IIE ---
Surgical History (Last Reviewed 05/26/19 @ 09:11 by Lukasz Monahan MD) History of tonsillectomy Status post hysterectomy Medical History (Last Reviewed 05/26/19 @ 09:11 by Lukasz Monahan MD) Diverticulosis (Chronic) Physical Therapy Inpatient Evaluation/Re-Eval M1 PT/OT-IP Prior Functional Status Start: 05/26/19 12:44 Freq: NEEDED Status: Active Protocol: Document 05/26/19 12:00 AB (Rec: 05/26/19 12:55 AB [id number]) Medical Review Prior Functional Status Medical History Reviewed Yes Communication able to make needs known Mobility and Gait pt stated that she is independent with all mobilities and ambulation without AD Social History Household Members spouse Living Arrangements House Number of Floors (Floors) One Floor Number of Stairs To Enter/Railing? 2 steps to enter with bilateral rails Home Environment Standard Height Toilet Walk in Shower Tub/Shower Home Equipment Straight Cane Hand Held Shower M2 PT-IP Current Condition Start: 05/26/19 12:44 Freq: NEEDED Status: Active Protocol: Document 05/26/19 12:00 AB (Rec: 05/26/19 12:55 AB [id number]) Physical Therapy Current Condition Current Condition Evaluation Date 05/26/19 Treatment Diagnosis partial small intestine obstruction; difficulty in walking Onset Date 05/25/19 M3 PT-IP Subjective Start: 05/26/19 12:44 Freq: NEEDED Status: Active Protocol: Document 05/26/19 12:00 AB (Rec: 05/26/19 12:55 AB [id number]) Subjective Physical Therapy Visit Type Type Initial Evaluation Visit Start Time 12:00 Visit Stop Time 12:38 Total Visit Minutes 38 Number of RACE CAR DRIVER Visits 0 Physical Therapy Visit Comments Patient Comments pt initially refused PT and wanted to wait until she gets her nausea meds. nurse stated that nausea medication will be given 12nn. checked on pt and agreed to get up. Therapy Pain Assessment Pain When Pain Assessed At Rest Pain Present Pain Present Pain Reported Location Abdomen Scale Used stated sick to my stomach Pain Management Techniques Timing of Activity with Medications M4 PT-IP Mobility and Gait Start: 05/26/19 12:44 Freq: NEEDED Status: Active Protocol: Document 05/26/19 12:00 AB (Rec: 05/26/19 12:55 AB [id number]) PT-Bed Mobility Assessment Supine to Sit Supine to Sit Standby Assistance Head of Bed Elevated PT-Transfer Assessment Sit to and From Stand Sit to and from Stand Minimal Assistance 1 Person Assistance Use of Upper Extremities Equipment Transfer Assistive Device Gait Belt Front Wheeled Walker Orthotic/Prosthetic Devices or Brace: No Transfers Transfer Destination Bedside Commode Transfer Technique Stand Step Pivot Transfer Ability Level of Assist Minimal Assistance Use of Upper Extremities Gait Assessment Gait Gait Assistance Required: Minimum Assistance Distance (Feet) 45 Able to Maintain Weight Bearing Status Yes During Gait Assistive Devices Assistive Device Gait Belt Front Wheeled Walker Orthotic/Prosthetic Devices or Brace: No Gait Deviations General Gait Pattern Decreased Stride Length Decreased Feet Clearance Flexed Trunk Factors Limiting Gait Function Factors Limiting Gait Function Decreased Activity Tolerance Decreased Strength Limited Range of Motion Pain Poor Balance Poor Safety Awareness PT-Balance Assessment Sitting Balance and Reactions Static Sitting Balance Ability Good Dynamic Sitting Balance Ability Good Standing Balance and Reactions Static Standing Balance Ability Fair Dynamic Standing Balance Ability Fair Device Used FWW M5 PT-IP Objective Assessments Start: 05/26/19 12:44 Freq: NEEDED Status: Active Protocol: Document 05/26/19 12:00 AB (Rec: 05/26/19 12:55 [id number]) Orientation Orientation/Cognition Level of Alertness Alert Orientation Name Place Situation Language Function Ability Hard of Hearing Safety Awareness Decreased Safety Awareness Memory Description Short Term Impaired Comments with confusion Gross Range of Motion Lower Extremity ROM Assessment Within Functional Limits Strength Lower Extremity Strength Assessment Bilaterally Impaired Hip 4-/5 Knee 4-/5 Sensation Assessment Sensation Gross Sensation WNL Muscle Tone Muscle Tone WNL Yes M6 PT-IP Treatment Start: 05/26/19 12:44 Freq: NEEDED Status: Active Protocol: Document 05/26/19 12:00 AB (Rec: 05/26/19 12:55 [id number]) Physical Therapy Treatment Education Education Provided Safety M7 PT-IP Assessment and Plan Start: 05/26/19 12:44 Freq: NEEDED Status: Active Protocol: Document 05/26/19 12:00 AB (Rec: 05/26/19 12:55 AB [id number]) PT Summary Assessment and Plan Potential Rehabilitation Potential Good Status of Condition at Evaluation Evolving Summary Impairments Pain Strength Balance Coordination Cognition Bed Mobility Transfers Gait Activity Tolerance Assessment Summary pt requiring min A and cues and has decrease activity tolerance due to c/o increase abdominal pain. pt's d/c plan is to go home and spouse will assist her at home. will continue to assess progress. Goals Bed Mobility Goal Independent Transfer Goal Independent Front Wheeled Walker Gait Goal Independent Front Wheel Walker Gait Distance 200 Other Goals improve ambulation without AD SBA 300 ft improve up/down 2 steps using bilateral rails SBA Days to Meet Goals 10 Frequency of Treatment Frequency Of Treatment Once a Day Treatment Plan Physical Therapy Treatment Plan Bed Mobility Training Transfer Training Gait Training Therapeutic Exercise Balance Retraining Discharge Planning Hot or Cold Pack Neuromuscular Re-ed Coordination Retraining Manual Therapy Other Recommendations and Next Treatment ambulation Focus Recommendations To Nursing Amount of Assist Needed 1 Person Assist Discharge Recommendations PT Discharge Recommendations Home with Assistance Equipment Needed for Home Before FWW if not safe without AD Discharge
[2019-05-26] MEDS: MINERAL OIL 473 ML OIL 30 ML PO (12:05)
[2019-05-26] MEDS: TIOTROPIUM BROMIDE 18 MCG INHALER INH (13:44)
[2019-05-26] MEDS: BECLOMETHASONE 80 MCG INH 10.6 GM 1 PUFF INH (13:44)
[2019-05-26] MEDS: SALMETEROL 50 MCG DISKUS 50 PUFF INH (13:44)
[2019-05-26] MEDS: ENOXAPARIN 40 MG/0.4 ML SYRINGE SUBCUT (14:10)
[2019-05-26] MEDS: SODIUM CHLORIDE 0.9% 1,000 ML 84 ML IV (17:40)
[2019-05-26] MEDS: FLEETS ENEMA 1 EACH PR (20:48)
--- NOTE | 2019-05-26 23:21 | PC.NURSE ---
gave pt fleet enema x1, but didn't have a bm. medicated pt with dilaudid for pain FLACC 5/10. pt denied nausea. at bedside. NG tube set to low intermittent suction.
[2019-05-27] VITALS (7 sets, daily range): BP systolic 140–155; BP diastolic 62–70; PULSE 76–90; RESP 14–20; TEMP 36.7–37.4; O2SAT 92–97
[2019-05-27] MEDS: PIPERACILLIN-TAZO 3.375 GM/50 ML FROZ.PIGGY IV ×2 (05:57→10:48)
[2019-05-27] MEDS: SODIUM CHLORIDE 0.9% 1,000 ML 84 ML IV (06:05)
--- NOTE | 2019-05-27 08:07 | DI.RAD.S_ITS ---
PROCEDURE: XR ABDOMEN 3V INDICATIONS: SBO TECHNIQUE: One view chest and two views of the abdomen were acquired. COMPARISON: [facility], CR, XR ABDOMEN 1V, 05/12/2019, 14:00. FINDINGS: Surgical changes and devices: None. Chest: Lungs are clear. Heart size is normal. No pleural effusions. No pneumoperitoneum. Abdomen: Bowel gas pattern is normal. No suspicious calcifications. Visualized solid organ contours appear normal. Bones: No suspicious bony lesions. There is S-shaped scoliosis of the thoracolumbar spine. IMPRESSION: No acute cardiopulmonary findings. No acute intra-abdominal findings. Dictated by: Oanh Hewitt M.D. on 05/27/2019 at 8:34 Approved by: Oanh Hewitt M.D. on 05/27/2019 at 8:35
[2019-05-27 08:39] LABS: Add Manual Diff / Slide Review NO; Basophils Absolute Auto 0 /uL (0-100); Basophils Percent Auto 0.3 % (0-2); Eosinophils Absolute Auto 0 /uL (0-450); Eosinophils Percent Auto 0.3 % (2-4); Hematocrit 34.9 % (36-46); Hemoglobin 11.8 g/dL (12.0-16.0); Lymphocytes Absolute Auto 1000 /uL (1100-4500); Lymphocytes Percent Auto 9.8 % (25-40); Mean Corpuscular HGB Conc 33.8 % (30-36); Mean Corpuscular Hemoglobin 29.3 PG (26-34); Mean Corpuscular Volume 86.5 fL (80-100); Monocytes Absolute Auto 1000 /uL (0-900); Monocytes Percent Auto 10.2 % (3-14); Neutrophils Absolute Auto 8100 /uL (1500-7000); Neutrophils Percent Auto 79.4 % (50-75); Platelet Count 309 X10^3/uL (150-400); Red Blood Cell Count 4.03 X10^6/uL (4.0-5.2); Red Cell Distribution Width 15.1 % (11.6-14.8); White Blood Cell Count 10.2 X10^3/uL (4.5-11.0)
[2019-05-27] MEDS: ENOXAPARIN 40 MG/0.4 ML SYRINGE SUBCUT (08:39)
[2019-05-27] MEDS: BISACODYL 10 MG SUPP PR ×2 (08:39→20:52)
[2019-05-27] MEDS: BECLOMETHASONE 80 MCG INH 10.6 GM 1 PUFF INH ×2 (08:57→20:50)
[2019-05-27] MEDS: TIOTROPIUM BROMIDE 18 MCG INHALER INH (08:58)
[2019-05-27] MEDS: SALMETEROL 50 MCG DISKUS 50 PUFF INH ×2 (08:58→20:50)
[2019-05-27] MEDS: MINERAL OIL 473 ML OIL 30 ML PO (09:24)
--- NOTE | 2019-05-27 10:14 | PM.PN.1 ---
Subjective Date Patient Seen: 05/27/19 Time Patient Seen: 10:14 Interval history: Patient was admitted yesterday with partial small-bowel obstruction which both clinically and radiographically has resolved. She has no abdominal pain no nausea vomiting she has had a small bowel movement Exam Vital Signs (past 8 hours): - 05/27/19 04:44 05/27/19 07:30 05/27/19 08:58 Temperature 98.6 F 98.8 F Pulse Rate 79 85 76 Respiratory Rate 16 16 14 Blood Pressure 140/62 149/70 H Pulse Oximetry 92 95 95 Oxygen Delivery Method Room Air Oxygen Flow Rate 0 Narrative Exam Narrative: Patient is alert has no abdominal pain. No nausea vomiting. Abdomen is soft and nontender. Objective Labs Result Diagrams: 05/27/19 08:15 05/25/19 22:11 Labs: Laboratory Results - last 24 hr 05/27/19 08:15 WBC 10.2 RBC 4.03 Hgb 11.8 L Hct 34.9 L MCV 86.5 MCH 29.3 MCHC 33.8 RDW 15.1 H Plt Count 309 Neut % (Auto) 79.4 H Lymph % (Auto) 9.8 L [place] % (Auto) 10.2 Eos % (Auto) 0.3 L Baso % (Auto) 0.3 Neut # (Auto) 8100 H Lymph # (Auto) 1000 L [place] # (Auto) 1000 H Eos # (Auto) 0 Baso # (Auto) 0 Assessment & Plan Assessment & Plan narrative: Three view abdominal series this morning is normal. I gave an additional dose of mineral oil down the NG tube and removed the NG tube. We will try a full liquid diet today I will given additional enema and MiraLax to try to cleanse the stool from her colon. If she tolerates diet today then she will be discharged tomorrow. Quality VTE Deep Vein Thrombosis/Pulmonary Embolism Present on Admission: No
--- NOTE | 2019-05-27 10:40 | PT.IPTN ---
Physical Therapy Treatment Note M2 PT-IP Current Condition Start: 05/26/19 12:44 Freq: NEEDED Status: Active Protocol: Document 05/26/19 12:00 AB (Rec: 05/26/19 12:55 AB [id number]) Physical Therapy Current Condition Current Condition Evaluation Date 05/26/19 Treatment Diagnosis partial small intestine obstruction; difficulty in walking Onset Date 05/25/19 M3 PT-IP Subjective Start: 05/26/19 12:44 Freq: NEEDED Status: Active Protocol: Document 05/27/19 10:41 GGD (Rec: 05/27/19 11:35 GGD [id number]) Subjective Physical Therapy Visit Type Type Treatment Note Visit Start Time 10:20 Visit Stop Time 10:41 Total Visit Minutes 21 Number of MANAGER ASSET Visits 1 Physical Therapy Visit Comments Patient Comments Pt states she is feeling better. M4 PT-IP Mobility and Gait Start: 05/26/19 12:44 Freq: NEEDED Status: Active Protocol: Document 05/27/19 10:41 GGD (Rec: 05/27/19 11:35 GGD [id number]) PT-Bed Mobility Assessment Supine to Sit Supine to Sit Standby Assistance Head of Bed Elevated Sit to Supine Sit to Supine Standby Assistance Head of Bed Elevated Scooting Scooting to Edge of Bed Standby Assistance Scooting Up and Down in Bed Standby Assistance PT-Transfer Assessment Sit to and From Stand Sit to and from Stand Contact Guard Assistance 1 Person Assistance Use of Upper Extremities Equipment Transfer Assistive Device None Gait Belt Straight Cane Orthotic/Prosthetic Devices or Brace: No Transfers Transfer Destination Bed Transfer Ability Level of Assist Contact Guard Assistance 1 Person Assistance Use of Upper Extremities Gait Assessment Gait Gait Assistance Required: Standby Assistance Contact Guard Assist Distance (Feet) 120 Able to Maintain Weight Bearing Status Yes During Gait Assistive Devices Assistive Device Gait Belt Straight Cane Orthotic/Prosthetic Devices or Brace: No Gait Deviations General Gait Pattern Decreased Stride Length Decreased Feet Clearance Flexed Trunk Factors Limiting Gait Function Factors Limiting Gait Function Decreased Activity Tolerance Decreased Strength Limited Range of Motion Pain Poor Balance Poor Safety Awareness Comments Gait Comments Pt amulated 60 feet without AD with CGA and then 60 feet with SPC, shoes on with SBA M5 PT-IP Objective Assessments Start: 05/26/19 12:44 Freq: NEEDED Status: Active Protocol: Document 05/26/19 12:00 AB (Rec: 05/26/19 12:55 AB [id number]) Orientation Orientation/Cognition Level of Alertness Alert Orientation Name Place Situation Language Function Ability Hard of Hearing Safety Awareness Decreased Safety Awareness Memory Description Short Term Impaired Comments with confusion Gross Range of Motion Lower Extremity ROM Assessment Within Functional Limits Strength Lower Extremity Strength Assessment Bilaterally Impaired Hip 4-/5 Knee 4-/5 Sensation Assessment Sensation Gross Sensation WNL Muscle Tone Muscle Tone WNL Yes M6 PT-IP Treatment Start: 05/26/19 12:44 Freq: NEEDED Status: Active Protocol: Document 05/26/19 12:00 AB (Rec: 05/26/19 12:55 AB [id number]) Physical Therapy Treatment Education Education Provided Safety M7 PT-IP Assessment and Plan Start: 05/26/19 12:44 Freq: NEEDED Status: Active Protocol: Document 05/27/19 10:41 GGD (Rec: 05/27/19 11:35 GGD [id number]) PT Summary Assessment and Plan Summary Assessment Summary Pt had improved stability with gait with SPC. She is unsteady with gait without AD. She safe with bed mobility. She needed cues for safety. Frequency of Treatment Frequency Of Treatment Once a Day Treatment Plan Physical Therapy Treatment Plan Bed Mobility Training Transfer Training Gait Training Therapeutic Exercise Balance Retraining Discharge Planning Hot or Cold Pack Neuromuscular Re-ed Coordination Retraining Manual Therapy Other Recommendations and Next Treatment stair mobility Focus Recommendations To Nursing Amount of Assist Needed 1 Person Assist Discharge Recommendations PT Discharge Recommendations Home with Assistance
[2019-05-27] MEDS: FLEETS ENEMA 1 EACH PR (10:48)
[2019-05-27] MEDS: POLYETHYLENE GLYCOL 3350 17 GM POWD.PACK PO (10:48)
[2019-05-28] VITALS (9 sets, daily range): BP systolic 124–159; BP diastolic 57–75; PULSE 71–84; RESP 12–18; TEMP 36.7–37.3; O2SAT 93–98
--- NOTE | 2019-05-28 02:16 | PC.NURSE ---
Addendum entered by Judy Velarde R.N. 05/28/19 06:24: Had 1 additional small, loose, brown stool. Denies any pain. Slept at intervals. Original Note: Patient oriented but angry about having bed alarm on and needing someone in room when she gets out of bed. Breath sounds CTA with RA sat of 93%. HRR. Denies nausea. BT present and abdomen is soft; up to bathroom and had small, loose, brown stool x2. Does say abdomen is sore but denies pain but declines any intervention. Allevyn dressing to right chest is CDI. Intact blister at xiphoid process area. Large bruise on right upper arm. Independent with bed mobility and ambulating to bathroom with SBA; refusing to use walker stating she does not feel weak or unsteady. Fall risk score is moderate; bed alarm is activated.
[2019-05-28] MEDS: BECLOMETHASONE 80 MCG INH 10.6 GM 1 PUFF INH ×2 (07:09→21:17)
[2019-05-28] MEDS: SALMETEROL 50 MCG DISKUS 50 PUFF INH ×2 (07:09→21:18)
[2019-05-28] MEDS: TIOTROPIUM BROMIDE 18 MCG INHALER INH (07:09)
--- NOTE | 2019-05-28 08:24 | PM.PN.1 ---
Subjective Date Patient Seen: 05/28/19 Time Patient Seen: 08:24 Interval history: Patient was admitted with bowel obstruction which seems to be resolving. She has had very few bowel movements with very hard stool. She has no nausea vomiting. Exam Vital Signs (past 8 hours): - 05/28/19 05:50 05/28/19 07:12 Temperature 98.6 F Pulse Rate 74 71 Respiratory Rate 18 12 Blood Pressure 141/57 H Pulse Oximetry 94 97 Oxygen Delivery Method Room Air Oxygen Flow Rate 0 Narrative Exam Narrative: Patient is somewhat confused but conversant Abdomen is mildly distended. Minimal abdominal tenderness. Objective Labs Result Diagrams: 05/27/19 08:15 05/25/19 22:11 Labs: Laboratory Results - last 24 hr 05/27/19 08:15 WBC 10.2 RBC 4.03 Hgb 11.8 L Hct 34.9 L MCV 86.5 MCH 29.3 MCHC 33.8 RDW 15.1 H Plt Count 309 Neut % (Auto) 79.4 H Lymph % (Auto) 9.8 L [place] % (Auto) 10.2 Eos % (Auto) 0.3 L Baso % (Auto) 0.3 Neut # (Auto) 8100 H Lymph # (Auto) 1000 L [place] # (Auto) 1000 H Eos # (Auto) 0 Baso # (Auto) 0 Assessment & Plan Assessment & Plan narrative: Patient has a large amount of stool visible on x-ray in her colon. I will attempt to clear her colon today with the intent of discharging her tomorrow. Her is interested in having a mental status evaluation which I have attempted to arrange. This is part of her discharge planning. Quality VTE Deep Vein Thrombosis/Pulmonary Embolism Present on Admission: No
--- NOTE | 2019-05-28 08:27 | P.PN_ITS ---
Subjective Date Patient Seen: 05/28/19 Time Patient Seen: 08:24 Interval history: Patient was admitted with bowel obstruction which seems to be resolving. She has had very few bowel movements with very hard stool. She has no nausea vomiting. Exam Vital Signs (past 8 hours): - 05/28/19 05:50 05/28/19 07:12 Temperature 98.6 F Pulse Rate 74 71 Respiratory Rate 18 12 Blood Pressure 141/57 H Pulse Oximetry 94 97 Oxygen Delivery Method Room Air Oxygen Flow Rate 0 Narrative Exam Narrative: Patient is somewhat confused but conversant Abdomen is mildly distended. Minimal abdominal tenderness. Objective Labs Result Diagrams: 05/27/19 08:15 05/25/19 22:11 Labs: Laboratory Results - last 24 hr 05/27/19 08:15 WBC 10.2 RBC 4.03 Hgb 11.8 L Hct 34.9 L MCV 86.5 MCH 29.3 MCHC 33.8 RDW 15.1 H Plt Count 309 Neut % (Auto) 79.4 H Lymph % (Auto) 9.[address] [place] [place] % (Auto) 10.2 Eos % (Auto) 0.3 L Baso % (Auto) 0.3 Neut # (Auto) 8100 H Lymph # (Auto) [address] [place] # (Auto) 1000 H Eos # (Auto) 0 Baso # (Auto) 0 Assessment & Plan Assessment & Plan narrative: Patient has a large amount of stool visible on x- ray in her colon. I will attempt to clear her colon today with the intent of discharging her tomorrow. Her is interested in having a mental status evaluation which I have attempted to arrange. This is part of her discharge planning. Quality VTE Deep Vein Thrombosis/Pulmonary Embolism Present on Admission: No
[2019-05-28] MEDS: DOCUSATE ORAL LIQUID 100 MG/10 ML UDC PO ×2 (09:43→20:55)
[2019-05-28] MEDS: BISACODYL 10 MG SUPP PR ×2 (09:43→20:55)
[2019-05-28] MEDS: POLYETHYLENE GLYCOL 3350 17 GM POWD.PACK PO ×2 (09:43→20:55)
[2019-05-28] MEDS: ENOXAPARIN 40 MG/0.4 ML SYRINGE SUBCUT (09:43)
[2019-05-28] MEDS: SODIUM CHLORIDE 0.9% FLUSH 10 ML IV ×2 (09:44→21:39)
--- NOTE | 2019-05-28 10:15 | PT.IPTN ---
Current Diagnoses Partial intestinal obstruction, unspecified as to cause (05/25/19) Physical Therapy Treatment Note M2 PT-IP Current Condition Start: 05/26/19 12:44 Freq: NEEDED Status: Active Protocol: Document 05/26/19 12:00 AB (Rec: 05/26/19 12:55 AB [id number]) Physical Therapy Current Condition Current Condition Evaluation Date 05/26/19 Treatment Diagnosis partial small intestine obstruction; difficulty in walking Onset Date 05/25/19 M3 PT-IP Subjective Start: 05/26/19 12:44 Freq: NEEDED Status: Active Protocol: Document 05/28/19 10:15 AB (Rec: 05/28/19 12:30 AB [id number]) Subjective Physical Therapy Visit Type Type Treatment Note Visit Start Time 10:15 Visit Stop Time 10:25 Total Visit Minutes 10 Number of PHOTOENGRAVING PRINTER Visits 0 Physical Therapy Visit Comments Patient Comments pt agreeable to do PT Therapy Pain Assessment Pain When Pain Assessed During Mobility Pain Present Pain Present Pain Reported Location Abdomen Scale Used pain scale not stated M4 PT-IP Mobility and Gait Start: 05/26/19 12:44 Freq: NEEDED Status: Active Protocol: Document 05/28/19 10:15 AB (Rec: 05/28/19 12:30 AB [id number]) PT-Transfer Assessment Sit to and From Stand Sit to and from Stand Standby Assistance Equipment Transfer Assistive Device Gait Belt Straight Cane Orthotic/Prosthetic Devices or Brace: No Transfers Transfer Destination Toilet Transfer Technique pt ambulated using SPC Comments Mobility Comments pt found sitting on the toilet . completed sit to stand SBA and ambulated using SPC towards the sink. pt was able to maintain standing SBA while completing handwashing. pt agreed to do ambulation and completed but limited due to c/o stomach pain and wants to go back to bed. pt completed sit to supine SBA. positioned in bed. call light and table placed within reach . Gait Assessment Gait Gait Assistance Required: Contact Guard Assist Distance (Feet) 75 Able to Maintain Weight Bearing Status Yes During Gait Assistive Devices Assistive Device Gait Belt Straight Cane Orthotic/Prosthetic Devices or Brace: No Gait Deviations General Gait Pattern Antalgic Decreased Stride Length Decreased Feet Clearance Factors Limiting Gait Function Factors Limiting Gait Function Decreased Activity Tolerance Decreased Strength Pain Poor Balance Poor Safety Awareness M5 PT-IP Objective Assessments Start: 05/26/19 12:44 Freq: NEEDED Status: Active Protocol: Document 05/26/19 12:00 AB (Rec: 05/26/19 12:55 AB [id number]) Orientation Orientation/Cognition Level of Alertness Alert Orientation Name Place Situation Language Function Ability Hard of Hearing Safety Awareness Decreased Safety Awareness Memory Description Short Term Impaired Comments with confusion Gross Range of Motion Lower Extremity ROM Assessment Within Functional Limits Strength Lower Extremity Strength Assessment Bilaterally Impaired Hip 4-/5 Knee 4-/5 Sensation Assessment Sensation Gross Sensation WNL Muscle Tone Muscle Tone WNL Yes M6 PT-IP Treatment Start: 05/26/19 12:44 Freq: NEEDED Status: Active Protocol: Document 05/26/19 12:00 AB (Rec: 05/26/19 12:55 AB [id number]) Physical Therapy Treatment Education Education Provided Safety M7 PT-IP Assessment and Plan Start: 05/26/19 12:44 Freq: NEEDED Status: Active Protocol: Document 05/28/19 10:15 AB (Rec: 05/28/19 12:30 AB [id number]) PT Summary Assessment and Plan Potential Rehabilitation Potential Good Summary Impairments Pain ROM Strength Balance Coordination Sensation Tone Cognition Bed Mobility Transfers Gait Activity Tolerance Progress Towards Goals Progressing Toward Goals Assessment Summary pt requiring CGA with mobility using SPC. pt will have her spouse to assist her at home. pt may go home when medically stable. Goals Bed Mobility Goal Independent Transfer Goal Independent Cane Gait Goal Independent Cane Gait Distance 200 Other Goals improve ambulation without AD SBA 300 ft improve up/down 2 steps using bilateral rails SBA Days to Meet Goals 10 Frequency of Treatment Frequency Of Treatment Once a Day Treatment Plan Physical Therapy Treatment Plan Bed Mobility Training Transfer Training Gait Training Therapeutic Exercise Balance Retraining Discharge Planning Hot or Cold Pack Neuromuscular Re-ed Coordination Retraining Manual Therapy Other Recommendations and Next Treatment stair mobility Focus Recommendations To Nursing Amount of Assist Needed 1 Person Assist Discharge Recommendations PT Discharge Recommendations Home with Assistance
--- NOTE | 2019-05-28 13:15 | PC.NURSE ---
Pt having multiple loose watery stools after suppository, liquid docusate, and miralax. Pt states her abdomen is very crampy and she does not want her enema at this time. Called Dr. Burnett's cell (he is currently doing a colonoscopy) and left a message with his Nurse to please call regarding this patient.
--- NOTE | 2019-05-28 13:38 | CM.DPC ---
Discharge Plan Cont. [employer] met with pt's RN to assess what steps are needed for continued discharge planning, as well as what the family's understanding of pt's cognitive deficits/dementia is. RN states that pt has not yet been fully worked up or officially diagnosed with dementia yet, however she has demonstrated over several instances during her inpt stay that she has very compromised short term memory, struggles with following care instructions, and has shown some behaviors that indicated her lack of awareness of her actions and environment. Son and dtr-in-law are very aware of the need for pt to f/u with her PCP following d/c, however they have not yet determined if they will continue with her current PCP, Dr. Woods, or switch back to her previous PCP, Dr. Kirby. Regardless, pt lisa be discharged home most likely tomorrow, with instructions to f/u with her PCP for dementia assessment and treatment plan. No further discharge needs indicated at this time. Family will make f/u appt. with PCP, transport pt home for continued recovery and care.
[2019-05-28] MEDS: SIMETHICONE 80 MG TABLET PO ×2 (13:53→20:04)
[2019-05-28] MEDS: ACETAMINOPHEN 325 MG TABLET 650 MG PO ×2 (16:54→20:58)
--- NOTE | 2019-05-28 18:49 | PC.NURSE ---
Pt has been up to toilet frequently. Passing tablespoon or two of brown liquid stool.
--- NOTE | 2019-05-28 21:53 | PC.NURSE ---
Pt very forgetful, keeps repeating questions. Bed alarm set. at bedside. Pt complaining of gas and abdominal pain at start of shift resolved with simethicone and tylenol. Pt up frequently to use restroom with brown watery stools.
[2019-05-29] VITALS (9 sets, daily range): BP systolic 142–177; BP diastolic 70–80; PULSE 73–85; RESP 16–18; TEMP 36.3–37.2; O2SAT 94–98
--- NOTE | 2019-05-29 06:25 | PC.NURSE ---
Addendum entered by Brittany Campos R.N. 05/29/19 06:50: IV site has no blood return and won't flush. Pt refuses another IV site. Will have day shift check w/ Dr. Monahan. Original Note: Pt is AxO, but forgetfull w/ short term memory loss. VSS, lung sounds clear bilaterally. Pt complains of gas pain and forgets that medications were given and it was explained multiple times. Pt was given warm blanket for gas pain.
[2019-05-29] MEDS: BECLOMETHASONE 80 MCG INH 10.6 GM 1 PUFF INH ×2 (07:35→17:43)
[2019-05-29] MEDS: TIOTROPIUM BROMIDE 18 MCG INHALER INH (07:36)
[2019-05-29] MEDS: SALMETEROL 50 MCG DISKUS 50 PUFF INH ×2 (07:36→17:43)
[2019-05-29] MEDS: ENOXAPARIN 40 MG/0.4 ML SYRINGE SUBCUT (08:01)
[2019-05-29] MEDS: DOCUSATE ORAL LIQUID 100 MG/10 ML UDC PO ×2 (08:01→20:13)
[2019-05-29] MEDS: SODIUM CHLORIDE 0.9% FLUSH 10 ML IV ×2 (08:02→20:14)
--- NOTE | 2019-05-29 10:26 | PM.PN.1 ---
Subjective Date Patient Seen: 05/29/19 Time Patient Seen: 10:26 Interval history: PATIENT IS STILL COMPLAINING OF SOME CRAMPY ABDOMINAL PAIN. NO NAUSEA VOMITING. PATIENT HAS HAD NUMEROUS BOWEL MOVEMENTS WHICH SHE DESCRIBES IS HARD STOOLS. THIS IS DIFFERENT FROM WHAT THE NURSES DESCRIBED MORE LIQUID STOOLS. SHE CERTAINLY DOES NOT APPEAR TO HAVE A BOWEL OBSTRUCTION. SHE IS TOLERATING A LIQUID DIET WITH NO DIFFICULTY. Exam Vital Signs (past 8 hours): - 05/29/19 06:52 05/29/19 07:41 05/29/19 07:43 Temperature 98.5 F Pulse Rate 73 73 73 Respiratory Rate 16 16 16 Blood Pressure 177/75 H Pulse Oximetry 94 96 96 05/29/19 08:00 Temperature 97.9 F Pulse Rate 75 Respiratory Rate 16 Blood Pressure 156/70 H Pulse Oximetry 95 Fraction of Inspired Oxygen 21 Oxygen Delivery Method Room Air Oxygen Flow Rate 0 Narrative Exam Narrative: PATIENT IS AFEBRILE ABDOMEN IS NOT DISTENDED ABDOMEN IS NOT TENDER THERE ARE NO ABDOMINAL MASSES Objective Labs Result Diagrams: 05/27/19 08:15 05/25/19 22:11 Assessment & Plan Assessment & Plan narrative: PATIENT IS HAVING BOWEL MOVEMENTS. SHE IS NOT EATING MUCH OF HER LIQUID DIET. SHE DOES HAVE ABDOMINAL CRAMPING. SHE DOES NOT WISH TO GO HOME TODAY. SHE SEEMS QUITE DEPRESSED. I HAVE PUT HER ON A SCHEDULED DOSE OF SIMETHICONE FOR INTESTINAL GAS MANAGEMENT. ADDED ZANTAC. STARTED ZOLOFT BECAUSE OF HER OBVIOUS DEPRESSION. ADVANCED HER TO A MECHANICAL SOFT DIET. MY HOPE IS THAT SHE WILL BE ABLE TO BE DISCHARGED TOMORROW. Quality VTE Deep Vein Thrombosis/Pulmonary Embolism Present on Admission: No
[2019-05-29] MEDS: SIMETHICONE 80 MG TABLET PO ×4 (10:36→20:13)
[2019-05-29] MEDS: ACETAMINOPHEN 325 MG TABLET 650 MG PO ×2 (10:36→17:39)
--- NOTE | 2019-05-29 12:35 | PT.IPTN ---
Current Diagnoses Partial intestinal obstruction, unspecified as to cause (05/25/19) Physical Therapy Treatment Note M2 PT-IP Current Condition Start: 05/26/19 12:44 Freq: NEEDED Status: Active Protocol: Document 05/26/19 12:00 AB (Rec: 05/26/19 12:55 AB [id number]) Physical Therapy Current Condition Current Condition Evaluation Date 05/26/19 Treatment Diagnosis partial small intestine obstruction; difficulty in walking Onset Date 05/25/19 M3 PT-IP Subjective Start: 05/26/19 12:44 Freq: NEEDED Status: Active Protocol: Document 05/29/19 12:35 AB (Rec: 05/29/19 13:52 AB [id number]) Subjective Physical Therapy Visit Type Type Treatment Note Visit Start Time 12:35 Visit Stop Time 13:00 Total Visit Minutes 25 Number of MANAGER RELIABILITY Visits 0 Physical Therapy Visit Comments Patient Comments pt agreeable to do PT M4 PT-IP Mobility and Gait Start: 05/26/19 12:44 Freq: NEEDED Status: Active Protocol: Document 05/29/19 12:35 AB (Rec: 05/29/19 13:52 AB [id number]) PT-Bed Mobility Assessment Supine to Sit Supine to Sit Standby Assistance Head of Bed Elevated Sit to Supine Sit to Supine Standby Assistance Head of Bed Elevated PT-Transfer Assessment Sit to and From Stand Sit to and from Stand Standby Assistance Use of Upper Extremities Equipment Transfer Assistive Device Gait Belt Orthotic/Prosthetic Devices or Brace: No Transfers Transfer Destination Toilet Transfer Technique pt ambulated without AD Transfer Ability Level of Assist Contact Guard Assistance Comments Mobility Comments pt ambulated towards the toilet without AD CGA. pt completed sit to stand from the toilet SBA using grab bar and ambulated back to bed using FWW SBA. pt requested to go back to bed and completed bed mobility SBA with HOB elevated. call light and table placed within reach . Gait Assessment Gait Gait Assistance Required: Contact Guard Assist Distance (Feet) 100 Able to Maintain Weight Bearing Status Yes During Gait Assistive Devices Assistive Device Gait Belt Gait Deviations General Gait Pattern Antalgic Decreased Stride Length Decreased Feet Clearance Factors Limiting Gait Function Factors Limiting Gait Function Decreased Activity Tolerance Decreased Strength Poor Balance Poor Safety Awareness Comments Gait Comments assessed ambulation without AD and pt completed requiring CGA. pt tends to hold on to the hammer/rails in the hallway and presents with unsteady antalgic gait. educated pt on safety and recommendation on continued use of SPC at this time. pt agreed. M5 PT-IP Objective Assessments Start: 05/26/19 12:44 Freq: NEEDED Status: Active Protocol: Document 05/26/19 12:00 AB (Rec: 05/26/19 12:55 AB [id number]) Orientation Orientation/Cognition Level of Alertness Alert Orientation Name Place Situation Language Function Ability Hard of Hearing Safety Awareness Decreased Safety Awareness Memory Description Short Term Impaired Comments with confusion Gross Range of Motion Lower Extremity ROM Assessment Within Functional Limits Strength Lower Extremity Strength Assessment Bilaterally Impaired Hip 4-/5 Knee 4-/5 Sensation Assessment Sensation Gross Sensation WNL Muscle Tone Muscle Tone WNL Yes M6 PT-IP Treatment Start: 05/26/19 12:44 Freq: NEEDED Status: Active Protocol: Document 05/26/19 12:00 AB (Rec: 05/26/19 12:55 AB [id number]) Physical Therapy Treatment Education Education Provided Safety M7 PT-IP Assessment and Plan Start: 05/26/19 12:44 Freq: NEEDED Status: Active Protocol: Document 05/29/19 12:35 AB (Rec: 05/29/19 13:52 AB [id number]) PT Summary Assessment and Plan Potential Rehabilitation Potential Good Summary Impairments Pain ROM Strength Balance Coordination Cognition Bed Mobility Transfers Gait Activity Tolerance Progress Towards Goals Slow Progress due to Activity Tolerance Assessment Summary pt slowly progress with mobility but continues to have decrerase activity tolerance and has decrease safety awareness. pt's spouse will assist pt at home. assessed ambulation without AD but pt demonstrated unsteady gait and recommending continued use of SPC for ambulation. pt understood and agreed. Goals Bed Mobility Goal Independent Transfer Goal Independent Cane Gait Goal Independent Cane Gait Distance 200 Other Goals improve ambulation without AD SBA 300 ft improve up/down 2 steps using bilateral rails SBA Days to Meet Goals 10 Frequency of Treatment Frequency Of Treatment Once a Day Treatment Plan Physical Therapy Treatment Plan Bed Mobility Training Transfer Training Gait Training Therapeutic Exercise Balance Retraining Discharge Planning Hot or Cold Pack Neuromuscular Re-ed Coordination Retraining Manual Therapy Other Recommendations and Next Treatment stair climbing Focus Recommendations To Nursing Amount of Assist Needed 1 Person Assist Discharge Recommendations PT Discharge Recommendations Home with Assistance
[2019-05-29] MEDS: BISACODYL 10 MG SUPP PR (20:13)
[2019-05-29] MEDS: SERTRALINE 25 MG TABLET 75 MG PO (20:13)
[2019-05-29] MEDS: POLYETHYLENE GLYCOL 3350 17 GM POWD.PACK PO (20:14)
[2019-05-30] MEDS: ACETAMINOPHEN 325 MG TABLET 650 MG PO (01:02)
--- NOTE | 2019-05-30 05:29 | PC.NURSE ---
Street Photographer summary Patient was very agitated at start of shift that she was unable to use a bathroom outside of her room and concerned about waking her . RN explained safety policy and fall precautions. Pt proceeded to refuse gait belt and shut door to the bathroom. No BM this shift; per evening shift report, pt had 3 BMs during evening shift and was also given dulcolax, colace, miralax, ranitadine, and simethicone. Pt endorsed severe abdominal aching pain 5/10 and was given PRN Tylenol (declined PRN dilaudid). Denies N/V/D. Some systolic HTN in 130s-140s but not on any antihypertensive mediations. VS otherwise stable. h/o COPD with SaO2 94-98% on RA.
[2019-05-30 07:15] VITALS: BP 152/87; PULSE 76; RESP 16; TEMP 36.4; O2SAT 95
[2019-05-30] MEDS: SALMETEROL 50 MCG DISKUS 50 PUFF INH (07:24)
[2019-05-30] MEDS: BECLOMETHASONE 80 MCG INH 10.6 GM 1 PUFF INH (07:24)
[2019-05-30 07:25] VITALS: PULSE 71; RESP 16; O2SAT 97
[2019-05-30] MEDS: TIOTROPIUM BROMIDE 18 MCG INHALER INH (07:29)
[2019-05-30] MEDS: SODIUM CHLORIDE 0.9% FLUSH 10 ML IV (08:23)
[2019-05-30] MEDS: SIMETHICONE 80 MG TABLET PO (08:23)
[2019-05-30] MEDS: DOCUSATE ORAL LIQUID 100 MG/10 ML UDC PO (08:23)
[2019-05-30] MEDS: ENOXAPARIN 40 MG/0.4 ML SYRINGE SUBCUT (08:23)
--- NOTE | 2019-05-30 09:27 | PT.IPTN ---
Current Diagnoses Partial intestinal obstruction, unspecified as to cause (05/25/19) Physical Therapy Treatment Note M2 PT-IP Current Condition Start: 05/26/19 12:44 Freq: NEEDED Status: Active Protocol: Document 05/26/19 12:00 AB (Rec: 05/26/19 12:55 AB [id number]) Physical Therapy Current Condition Current Condition Evaluation Date 05/26/19 Treatment Diagnosis partial small intestine obstruction; difficulty in walking Onset Date 05/25/19 M3 PT-IP Subjective Start: 05/26/19 12:44 Freq: NEEDED Status: Active Protocol: Document 05/30/19 09:00 CLB (Rec: 05/30/19 10:06 CLB [id number]) Subjective Physical Therapy Visit Type Type Treatment Note Visit Start Time 09:00 Visit Stop Time 09:27 Total Visit Minutes 27 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 1 Physical Therapy Visit Comments Patient Comments pt agreeable to do PT M4 PT-IP Mobility and Gait Start: 05/26/19 12:44 Freq: NEEDED Status: Active Protocol: Document 05/30/19 09:00 CLB (Rec: 05/30/19 10:06 CLB [id number]) PT-Bed Mobility Assessment Supine to Sit Supine to Sit Standby Assistance Head of Bed Elevated Sit to Supine Sit to Supine Standby Assistance Head of Bed Elevated Scooting Scooting to Edge of Bed Standby Assistance Scooting Up and Down in Bed Standby Assistance PT-Transfer Assessment Sit to and From Stand Sit to and from Stand Standby Assistance Use of Upper Extremities Equipment Transfer Assistive Device Gait Belt Straight Cane Orthotic/Prosthetic Devices or Brace: No Transfers Transfer Destination Bed Toilet Wheelchair Transfer Technique pt ambulated using SPC Transfer Ability Level of Assist Contact Guard Assistance Gait Assessment Gait Gait Assistance Required: Contact Guard Assist Distance (Feet) 125 Able to Maintain Weight Bearing Status Yes During Gait Assistive Devices Assistive Device Gait Belt Straight Cane Gait Deviations General Gait Pattern Antalgic Decreased Stride Length Decreased Feet Clearance Factors Limiting Gait Function Factors Limiting Gait Function Decreased Activity Tolerance Decreased Strength Poor Balance Poor Safety Awareness Comments Gait Comments Pt ambulated with SPC in gerard ~125ft requiring CGA. Stair Climbing Assessment Evaluation Level of Assist On Stairs Contact Guard Assistance 1 Person Assistance Devices Stair Climbing Assistive Devices Left Railing Right Railing Technique/Endurance Stair Climbing Direction Ascend and Descend Stair Climbing Technique Step Over Step Number of Steps Climbed 3 Stair Climbing Set # Repetitions (reps) 1 Comments Stair Climbing Comments Pt able to climb stairs with step over up and down steps. M5 PT-IP Objective Assessments Start: 05/26/19 12:44 Freq: NEEDED Status: Active Protocol: Document 05/26/19 12:00 AB (Rec: 05/26/19 12:55 AB [id number]) Orientation Orientation/Cognition Level of Alertness Alert Orientation Name Place Situation Language Function Ability Hard of Hearing Safety Awareness Decreased Safety Awareness Memory Description Short Term Impaired Comments with confusion Gross Range of Motion Lower Extremity ROM Assessment Within Functional Limits Strength Lower Extremity Strength Assessment Bilaterally Impaired Hip 4-/5 Knee 4-/5 Sensation Assessment Sensation Gross Sensation WNL Muscle Tone Muscle Tone WNL Yes M6 PT-IP Treatment Start: 05/26/19 12:44 Freq: NEEDED Status: Active Protocol: Document 05/26/19 12:00 AB (Rec: 05/26/19 12:55 AB [id number]) Physical Therapy Treatment Education Education Provided Safety M7 PT-IP Assessment and Plan Start: 05/26/19 12:44 Freq: NEEDED Status: Active Protocol: Document 05/30/19 09:00 CLB (Rec: 05/30/19 10:06 CLB [id number]) PT Summary Assessment and Plan Summary Impairments Pain ROM Strength Balance Coordination Cognition Bed Mobility Transfers Gait Activity Tolerance Progress Towards Goals Progressing Toward Goals Assessment Summary Pt requires CGA with SPC with ambulation. Pt's spouse will assist her at home. Pt's personal cane was modified to proper height and pt agreed her balance with gait was better while using SPC. Recommended pt used SPC with all ambulation, pt and stated understanding. Pt seems safe to d/c home with assist from when medically stable. Goals Bed Mobility Goal Independent Transfer Goal Independent Cane Gait Goal Independent Cane Gait Distance 200 Other Goals improve ambulation without AD SBA 300 ft improve up/down 2 steps using bilateral rails SBA Days to Meet Goals 10 Frequency of Treatment Frequency Of Treatment Once a Day Treatment Plan Physical Therapy Treatment Plan Bed Mobility Training Transfer Training Gait Training Therapeutic Exercise Balance Retraining Discharge Planning Hot or Cold Pack Neuromuscular Re-ed Coordination Retraining Manual Therapy Recommendations To Nursing Amount of Assist Needed 1 Person Assist Discharge Recommendations PT Discharge Recommendations Home with Assistance
--- NOTE | 2019-05-30 10:39 | PM.DS.1 ---
History of Present Illness Chief complaint: stomach pain Narrative: 84-year-old white female with severe COPD admitted last night through the emergency room about midnight with a 1 day history of abdominal pain and vomiting. CT scan in the ER last night shows either adynamic ileus or partial small-bowel obstruction. After being in the hospital for the last few hours with nasogastric decompression she is feeling much better actually has no abdominal pain. Discharge Providers Date of admission: 05/25/19 23:56 Discharge Date: 05/30/19 Primary care physician: Isaura Woods DO Consults: 05/26/19 09:06 Consult to Physical Therapy Evaluate & Treat Comment: Physician Instructions: Evaluate and Treat Consult to Respiratory Therapy Evaluate & Treat Comment: Physician Instructions: Evaluate and treat 05/27/19 10:18 Consult to Discharge Planning Routine Comment: mental status eval for discharge Discharge provider: Lukasz Monahan MD Summary Discharge Diagnosis: Patient was admitted with partial small bowel obstruction. Hospital Course: She was treated conservatively with nasogastric decompression IV fluids and GI cleansing. X-rays improved her symptoms improved and she had normal GI function prior to discharge with copious stools. Tolerating a diet without pain or vomiting. She is discharged with instructions to keep her bowels open with a high-fiber diet stimulants only when necessary in the form of oral laxatives or suppositories. Stool softeners were also recommended when needed. She will follow up with her primary care physician. Status at Discharge Cognitive/behavioral status at discharge: at baseline, oriented and at baseline, confused Functional status at discharge: uses cane/walker Overall status at discharge: patient is back to baseline Time Spent with Patient Greater than 30 minutes Exam Vital Signs (past 8 hours): - 05/30/19 07:15 05/30/19 07:25 Temperature 97.6 F Pulse Rate 76 71 Respiratory Rate 16 16 Blood Pressure 152/87 H Pulse Oximetry 95 97 Fraction of Inspired Oxygen 21 Oxygen Delivery Method Room Air Oxygen Flow Rate 0 Objective Labs Result Diagrams: 05/27/19 08:15 05/25/19 22:11 Discharge Plan Discharge Plan Patient Disposition: Home Discharge Med Rec/Prescriptions Prescriptions: Continued ascorbic acid (vitamin C) 500 MG tablet 1,000 mg PO QDAY Qty: 0 RF: 0 calcium polycarbophil 625 mg Tablet 625 mg PO DAILY RF: 0 salmeterol 50 mcg/dose Blister With Device 1 inh INHALATION BID RF: 0 ergocalciferol (vitamin D2) 8,000 unit/mL Drops 1 ml PO DAILY RF: 0 Spiriva with HandiHaler 18 mcg Capsule, W/Inhalation Device 1 cap INHALATION DAILY RF: 0 albuterol sulfate 90 mcg/actuation Aerosol Powdr Breath Activated 2 puff INHALATION Q4H PRN (Reason: Bronchospasm) RF: 0 Qvar RediHaler 80 mcg/actuation Hfa Aerosol Breath Activated 2 puff INHALATION QAM RF: 0 atenolol 25 MG tablet 25 mg PO QAM RF: 0 furosemide 20 mg Tablet 20 mg PO DAILY RF: 0 Qvar RediHaler 80 mcg/actuation Hfa Aerosol Breath Activated 1 puff INHALATION BID RF: 0 Follow up/Referrals: Isaura Woods DO [Primary Care Provider] - Provider Discharge Instructions Diet: Diet as Tolerated Diet comment: add ensure daily Skin/Wound/Dressing Care Report to your healthcare provider any signs of infection, such as:: increased pain Discharge Data Primary Care Provider: Isaura Woods Attending Provider: Lukasz Monahan Admit Date/Time: 05/25/19 23:56 Quality VTE Deep Vein Thrombosis/Pulmonary Embolism Present on Admission: No
--- NOTE | 2019-05-30 10:47 | CM.DPC ---
DCP/continued: Reviewed chart. Met briefly with patient to confirm d/c plan. Patient alert and oriented at time of visit. Patient reports that she hopes to return home today. Patient resides with supportive spouse. Patient seen by therapy and cleared to return home. Important Message from Medicare signed by patient this AM. No additional needs identified. P: Anticipate home today. GABY Vogt
== END 2019-05-30 12:17 | disposition home or self-care (01) | DRG 390 ==
LOC: ED 23:36 → AC 23:57
PROVIDERS: Admitting Provider Surgery; Emergency Provider Emergency Medicine; Family Provider Family Medicine; PCP Family Medicine; Visit Provider Surgery
DX: K56.600 Partial intestinal obstruction, unspecified as to cause (principal); J44.9 Chronic obstructive pulmonary disease, unspecified; Z87.891 Personal history of nicotine dependence
CPT/HCPCS: 36415; 36591; 71045; 74022; 74177; 80053; 82962; 83605; 83690; 85025; 94640; 94760; 96365; 96375; 96376; 97116; 97162; 97530; 99221; 99231; 99238; 99284; 99285; J1170; J1650; J2405; J2543

== ENCOUNTER → 2019-06-09 15:39 | Outpatient (CLI) | payer MEDICARE, OTHER, SELFPAY ==
[2019-05-26 00:22] VITALS: BMI 20.5
[2019-06-09 18:54] LABS: TSH w/ Reflex to FT4 0.52 uIU/mL (0.47-4.68)
[2019-06-09 19:15] LABS: Vitamin B12 446 pg/mL (239-931)
== END ==
PROVIDERS: Family Provider Family Medicine; PCP Family Medicine; Visit Provider Internal Medicine
DX: J44.9 Chronic obstructive pulmonary disease, unspecified (principal); G31.84 Mild cognitive impairment of uncertain or unknown etiology
CPT/HCPCS: 36415; 82607; 84443

== ENCOUNTER → 2019-06-16 10:33 | Outpatient (CLI) | payer MEDICARE, OTHER, SELFPAY ==
[2019-05-26 00:22] VITALS: BMI 20.5
--- NOTE | 2019-06-16 | DI.CT.S_ITS ---
PROCEDURE: CT HEAD/BRAIN WO CON INDICATIONS: Mild cognitive impairment. TECHNIQUE: Noncontrast 4.5 mm thick angled axial sections acquired from the foramen magnum to the vertex, with coronal and sagittal reformats. For radiation dose reduction, the following was used: automated exposure control, adjustment of mA and/or kV according to patient size. COMPARISON: None. FINDINGS: Image quality: Excellent. CSF spaces: Basal cisterns are patent. No extra-axial fluid collections. The ventricles are symmetric in size and shape. Brain: No intracranial bleeds or masses. There is cerebral volume loss for age, with resultant ventricular and sulcal prominence. There are periventricular and deep white matter chronic small vessel ischemic changes. There is intracranial internal carotid artery atherosclerosis. Skull and face: Calvarium and visualized facial bones appear intact, without suspicious lesions. Sinuses: Visualized sinuses and mastoids are clear. IMPRESSION: No acute intracranial disease process. Dictated by: Kateryna Sanchez MD, PhD on 06/16/2019 at 11:19 Approved by: Kateryna Sanchez MD, PhD on 06/16/2019 at 11:21
== END ==
PROVIDERS: PCP Family Medicine; Visit Provider Internal Medicine
DX: G31.84 Mild cognitive impairment of uncertain or unknown etiology (principal); R41.3 Other amnesia
CPT/HCPCS: 70450

== ENCOUNTER → 2019-07-08 16:57 | Outpatient (CLI) | payer MEDICARE, OTHER, SELFPAY ==
[2019-05-26 00:22] VITALS: BMI 20.5
[2019-07-08 17:50] LABS: Add Manual Diff / Slide Review NO; Basophils Absolute Auto 0 /uL (0-100); Basophils Percent Auto 0.5 % (0-2); Eosinophils Absolute Auto 100 /uL (0-450); Eosinophils Percent Auto 1.1 % (2-4); Hematocrit 39.5 % (36-46); Hemoglobin 12.9 g/dL (12.0-16.0); Lymphocytes Absolute Auto 1800 /uL (1100-4500); Lymphocytes Percent Auto 18.6 % (25-40); Mean Corpuscular HGB Conc 32.7 % (30-36); Mean Corpuscular Hemoglobin 28.9 PG (26-34); Mean Corpuscular Volume 88.4 fL (80-100); Monocytes Absolute Auto 900 /uL (0-900); Neutrophils Absolute Auto 6700 /uL (1500-7000); Neutrophils Percent Auto 70.8 % (50-75); Platelet Count 369 X10^3/uL (150-400); Red Blood Cell Count 4.47 X10^6/uL (4.0-5.2); Red Cell Distribution Width 15.3 % (11.6-14.8); White Blood Cell Count 9.5 X10^3/uL (4.5-11.0)
[2019-07-08 18:04] LABS: Alanine Aminotransferase 14 IU/L (9-52); Albumin 4.4 g/dL (3.5-5.0); Albumin Globulin Ratio 1.4 (1.0-2.8); Alkaline Phosphatase 76 U/L (38-126); Aspartate Aminotransferase 22 IU/L (14-36); BUN Creatinine Ratio 17.5 (6-22); Bilirubin Total 0.6 mg/dL (0.2-1.3); Blood Urea Nitrogen 14 mg/dL (7-17); Calcium 10.1 mg/dL (8.4-10.2); Carbon Dioxide 28 mmol/L (22-32); Chloride 104 mmol/L (98-107); Estimated Glomerular Filt Rate > 60.0 mL/min (>60); Globulin 3.2 g/dL (1.7-4.1); Glucose 114 mg/dL (80-110); HEMOLYSIS 16 (0-50); Lactate Dehydrogenase 385 U/L (313-618); Potassium 5.1 mmol/L (3.4-5.1); Sodium 142 mmol/L (137-145); Total Protein 7.6 g/dL (6.3-8.2)
[2019-07-13 14:02] LABS: Free Kappa Light Chain 19.2 mg/L (3.3-19.4); Free Kappa/ Lambda Ratio 1.96 (0.26-1.65); Free Lambda 9.8 mg/L (5.7-26.3)
[2019-07-13 14:22] LABS: Immunoglobulin A 64 mg/dL (20-320); Immunoglobulin G, Quantitative 657 mg/dL (600-1540)
[2019-07-13 14:23] LABS: Immunoglobulin M, Quantitative 989 mg/dL (50-300)
[2019-07-14 09:48] LABS: Beta-2-Microglobulin 2.91 mg/L (< 2.52)
[2019-07-15 20:59] LABS: Abnormal Protein Band 1 0.5 g/dL (NONE DETECTED); Albumin 3.9 g/dL (3.8-4.8); Alpha 1 Globulin 0.3 g/dL (0.2-0.3); Alpha 2 Globulin 0.8 g/dL (0.5-0.9); Beta 1 Globulin 0.4 g/dL (0.4-0.6); Gamma Globulin 1.2 g/dL (0.8-1.7); Protein, Total 6.8 g/dL (6.1-8.1)
== END ==
PROVIDERS: Family Provider Internal Medicine; PCP Internal Medicine; Visit Provider Internal Medicine Hematology & Oncology
DX: D47.2 Monoclonal gammopathy (principal)
CPT/HCPCS: 36415; 80053; 82232; 82784; 83615; 83883; 84155; 84165; 85025

== ENCOUNTER → 2019-07-17 12:35 | Outpatient (CLI) | payer MEDICARE, OTHER, SELFPAY ==
[2019-05-26 00:22] VITALS: BMI 20.5
--- NOTE | 2019-07-17 | DI.MG.S_ITS ---
BILATERAL DIGITAL SCREENING MAMMOGRAM 3D/2D WITH CAD: 07/17/2019 CLINICAL: Routine screening. Comparison is made to exams dated: 11/06/2009 mammogram, 09/18/2011 mammogram, and 10/05/2011 mammogram - [facility]. The tissue of both breasts is predominantly fatty. Current study was also evaluated with a Computer Aided Detection (CAD) system. There are benign calcifications in both breasts. No significant masses, calcifications, or other findings are seen in either breast. There has been no significant interval change. IMPRESSION: There is no mammographic evidence of malignancy. A 1 year screening mammogram is recommended. This exam was interpreted at Station ID: [id number]. NOTE: For mammograms, a report in lay terms will be sent to the patient. Approximately 15% of breast malignancies will not be visualized mammographically. In the management of a palpable breast mass, a negative mammogram must not discourage biopsy of a clinically suspicious lesion. Electronically Signed By: Sreedhar myles/[email or web address]:07/19/2019 08:22:42 letter sent: Normal Exam ACR BI-RADS Category 2: Benign Finding(s) [id number]
== END ==
PROVIDERS: PCP Internal Medicine; Visit Provider Internal Medicine
DX: Z12.31 Encounter for screening mammogram for malignant neoplasm of breast (principal)
CPT/HCPCS: 77063; 77067

== ENCOUNTER → 2019-12-10 15:04 | Outpatient (CLI) | payer MEDICARE, OTHER, SELFPAY ==
[2019-05-26 00:22] VITALS: BMI 20.5
--- NOTE | 2019-12-10 15:11 | DI.RAD.S_ITS ---
PROCEDURE: XR LUMBAR SPINE MIN 4V INDICATIONS: LBP and hip pain TECHNIQUE: 5 views of the lumbar spine were acquired. COMPARISON: [facility], CR, L-SPINE 2-3 VIEWS, 02/20/2017, 9:01. [facility], CR, L-SPINE 2-3 VIEWS, 11/30/2007, 14:39. FINDINGS: Bones: 5 nonrib-bearing vertebrae are present. There is prominent dextroscoliotic bony alignment centered on L3, convex rightward 33.4?. Prior examinations from November of 2007 had shown a 12.3? convex rightward scoliosis which progressed to 31.6? 02/20/17. Note is made of worsening degenerative facet osteoarthritis and disc disease along the inner curvature of this scoliosis. Significant spinal and foraminal stenosis appears present. Grade 1 anterolisthesis of L5 on S1 is now present, and there is [id number] plate level articulation at that disc site, which has progressed over time. Facet osteoarthritis also is more prominent but difficult to accurately assess due to the degree of scoliosis superimposed on the oblique views. No vertebral body compression fractures. No suspicious bony lesions. Soft tissues: Overlying bowel gas pattern is normal. No suspicious soft tissue calcifications. Oblique images: No pars defects. IMPRESSION: Worsening scoliosis, worsening facet osteoarthritis and degenerative disc disease most prominent at the lower lumbosacral spine. Convex rightward scoliosis is now 33.4?, mildly worsened from the value noted above from 02/20/17 and probably worsened from 2007. No compression fracture found. Dictated by: Marco Antonio Ferrera M.D. on 12/10/2019 at 16:34 Approved by: Marco Antonio Ferrera M.D. on 12/10/2019 at 16:37
== END ==
PROVIDERS: PCP Internal Medicine; Referring Provider Physical Medicine & Rehabilitation; Visit Provider Physical Medicine & Rehabilitation
DX: M54.5 Low back pain (principal); M25.559 Pain in unspecified hip; M41.86 Other forms of scoliosis, lumbar region; M47.816 Spondylosis without myelopathy or radiculopathy, lumbar region; M51.36 Other intervertebral disc degeneration, lumbar region; M43.17 Spondylolisthesis, lumbosacral region; G89.29 Other chronic pain
CPT/HCPCS: 72110

== ENCOUNTER → 2020-05-18 14:45 | Outpatient (CLI) | payer MEDICARE, OTHER, SELFPAY ==
[2019-05-26 00:22] VITALS: BMI 20.5
[2020-05-18 15:58] LABS: BUN Creatinine Ratio 14.9 (6-22); Blood Urea Nitrogen 13 mg/dL (7-17); Carbon Dioxide 24 mmol/L (22-32); Chloride 102 mmol/L (98-107); Estimated Glomerular Filt Rate > 60.0 mL/min (>60); Glucose 117 mg/dL (80-110); HEMOLYSIS < 15 (0-50); Potassium 4.7 mmol/L (3.4-5.1); Sodium 134 mmol/L (137-145)
== END ==
PROVIDERS: PCP Internal Medicine; Referring Provider Internal Medicine Cardiovascular Disease; Visit Provider Internal Medicine Cardiovascular Disease
DX: R00.2 Palpitations (principal)
CPT/HCPCS: 36415; 80048

== ENCOUNTER → 2020-06-09 13:13 | Outpatient (CLI) | payer MEDICARE, OTHER, SELFPAY ==
[2019-05-26 00:22] VITALS: BMI 20.5
[2020-06-09 13:32] LABS: Add Manual Diff / Slide Review NO; Basophils Absolute Auto 100 /uL (0-100); Basophils Percent Auto 1.2 % (0-2); Eosinophils Absolute Auto 100 /uL (0-450); Eosinophils Percent Auto 1.2 % (2-4); Hemoglobin 13.5 g/dL (12.0-16.0); Lymphocytes Absolute Auto 1400 /uL (1100-4500); Lymphocytes Percent Auto 14.1 % (25-40); Mean Corpuscular Hemoglobin 30.1 PG (26-34); Mean Corpuscular Volume 91.5 fL (80-100); Monocytes Absolute Auto 900 /uL (0-900); Monocytes Percent Auto 9.6 % (3-14); Neutrophils Absolute Auto 7100 /uL (1500-7000); Neutrophils Percent Auto 73.9 % (50-75); Platelet Count 335 X10^3/uL (150-400); Red Blood Cell Count 4.48 X10^6/uL (4.0-5.2); Red Cell Distribution Width 14.7 % (11.6-14.8); White Blood Cell Count 9.6 X10^3/uL (4.5-11.0)
[2020-06-09 13:46] LABS: Alanine Aminotransferase 13 IU/L (<35); Albumin Globulin Ratio 1.2 (1.0-2.8); Alkaline Phosphatase 93 U/L (38-126); Aspartate Aminotransferase 20 IU/L (14-36); BUN Creatinine Ratio 12.2 (6-22); Bilirubin Total 0.7 mg/dL (0.2-1.3); Blood Urea Nitrogen 10 mg/dL (7-17); Calcium 9.8 mg/dL (8.4-10.2); Carbon Dioxide 29 mmol/L (22-32); Chloride 102 mmol/L (98-107); Estimated Glomerular Filt Rate > 60.0 mL/min (>60); Globulin 3.4 g/dL (1.7-4.1); Glucose 116 mg/dL (80-110); HEMOLYSIS < 15 (0-50); Potassium 4.4 mmol/L (3.4-5.1); Sodium 136 mmol/L (137-145); Total Protein 7.4 g/dL (6.3-8.2)
[2020-06-10 04:12] LABS: Immunoglobulin M, Quantitative 962 mg/dL (26-217)
[2020-06-10 15:36] LABS: Free Kappa Lt Chains, Serum 21.3 mg/L (3.3-19.4); Free Lambda Lt Chains,Serum 10.7 mg/L (5.7-26.3)
[2020-06-12 21:37] LABS: Albumin 3.5 g/dL (2.9-4.4); Alpha 1 Globulin 0.3 g/dL (0.0-0.4); Alpha 2 Globulin 0.7 g/dL (0.4-1.0); Beta 1 Globulin 0.9 g/dL (0.7-1.3); Gamma Globulin 1.2 g/dL (0.4-1.8); Immunoglobulin A 63 mg/dL (64-422); Immunoglobulin G 691 mg/dL (586-1602); Immunoglobulin M 958 mg/dL (26-217); Protein, Total 6.6 g/dL (6.0-8.5)
== END ==
PROVIDERS: PCP Internal Medicine
DX: D47.2 Monoclonal gammopathy (principal)
CPT/HCPCS: 36415; 80053; 82784; 83883; 84155; 84165; 85025

== ENCOUNTER 2020-09-27 04:02 | Emergency (ER) | payer MEDICARE, OTHER, SELFPAY ==
[2019-05-26 00:22] VITALS: BMI 20.5
--- NOTE | 2020-09-27 04:05 | ED.SKABFB ---
HPI - Skin/Abscess/Foreign Bdy General Chief complaint: Skin/Abscess/Foreign Body Stated complaint: RED RASH ON NECK X5 HOURS Time Seen by Provider: 09/27/20 04:02 Source: patient and family Mode of arrival: Ambulatory Limitations: no limitations History of Present Illness HPI narrative: 85F former smoker with extensive medical history presents with her and the chief complaint of 4-5 hours of a red blotchy rash on her anterior neck. She denies any facial swelling, lip swelling, trouble swallowing, difficulty breathing or GI symptoms. She denies skin pain, itching or other symptoms. She denies any new soap, lotion, jewelry. She has been taking Augmentin for the past week or so to treat a laceration on her left anterior card. Her had some Clobetasol 0.5% from another episode years ago. MD complaint: rash Onset (ago): hour(s) Tetanus up to date: yes Location: neck Severity: mild Relieving factors: none Treatments prior to arrival: corticosteroid Related Data Home Medications Medication Instructions Recorded Confirmed ascorbic acid (vitamin C) 1,000 mg PO QDAY #0 02/13/12 12/20/19 Spiriva with HandiHaler 1 cap INHALATION DAILY 07/15/18 12/20/19 albuterol sulfate 2 puff INHALATION Q4H PRN 07/15/18 12/20/19 atenolol 25 mg PO BID 07/15/18 12/20/19 ergocalciferol (vitamin D2) 1 ml PO DAILY 07/15/18 12/20/19 furosemide 20 mg PO DAILY 05/26/19 12/20/19 Lactobacillus rhamnosus GG 1 cap PO DAILY 07/14/19 12/20/19 [Culturelle] coenzyme Q10 [CoQ-10] 30 mg PO DAILY 07/14/19 12/20/19 potassium chloride 10 meq 07/14/19 12/20/19 rosuvastatin [Crestor] 10 mg DAILY 07/14/19 12/20/19 salmeterol [Serevent Diskus] 50 mcg INHALATION BID 07/14/19 12/20/19 vitamin B complex 1 tab PO DAILY 07/14/19 12/20/19 Previous Rx's Medication Instructions Recorded hydrocortisone 1 applic TOPICAL TID 7 Days #28 g 09/27/20 Allergies Allergy/AdvReac Type Severity Reaction Status Date / Time piroxicam [PIROXICAM] Allergy Intermediate I FELT Verified 09/27/20 04:15 VERY CRAZY AND NERVOUS WITH IT codeine [CODEINE] Allergy Mild MOOD SWINGS Verified 09/27/20 04:15 Sulfa (Sulfonamide AdvReac Unknown gas Verified 09/27/20 04:15 Antibiotics) [SULFA (SULFONAMIDE ANTIBIOTICS)] Review of Systems Constitutional Constitutional: Denies chills, Denies fatigue, Denies fever(s), Denies frequent falls, Denies lethargy and Denies weakness Eyes Eyes: Denies change in vision, Denies eye discharge, Denies irritation and Denies loss of vision ENT Ears, Nose, Mouth, and Throat: Denies change in voice, Denies dizziness, Denies neck pain, Denies sore throat and Denies throat swelling Cardiovascular Cardiovascular: Denies chest pain, Denies irregular heart rhythm, Denies lightheadedness, Denies palpitations, Denies dyspnea, Denies dyspnea on exertion and Denies orthopnea Respiratory Respiratory: Denies cough, Denies dyspnea, Denies dyspnea on exertion and Denies wheezing Gastrointestinal Gastrointestinal: Denies abdominal pain, Denies change in bowel habits, Denies diarrhea, Denies nausea and Denies vomiting Musculoskeletal Musculoskeletal: Denies neck pain and Denies numbness Integumentary/Breasts Skin/Breast: Denies pruritus, Reports erythema, Reports rash and Denies wounds Neurologic Neurologic: Denies behavioral changes, Denies confusion, Denies dizziness, Denies frequent falls, Denies loss of vision, Denies numbness and Denies weakness Psychiatric Psychiatric: Denies anxiety, Denies behavioral changes, Denies confusion, Denies depression, Denies homicidal ideation and Denies suicidal ideation Endocrine Endocrine: Denies fatigue, Denies flushing and Denies palpitations Hematologic/Lymphatic Hematologic/Lymphatic: Denies easy bruising Allergic/Immunologic Allergic/Immunologic: Denies urticaria, Denies throat swelling and Denies wheezing Patient History Medical History Degenerative joint disease (DJD) of hip Diverticulosis Gait instability 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 of spine in adult patient Surgical History History of tonsillectomy Status post hysterectomy Social History household members: spouse Smoking Status: Former smoker Tobacco: How many years used: 20 alcohol intake: never Smoking Status: Former smoker alcohol intake frequency: holidays/special occasions only Substance Use Type: does not use Exam Narrative Exam Narrative: GENERAL: [85] year old patient appears stated age. Frail and elderly and in no obvious distress HEAD: Atraumatic. Normocephalic. EYES: Pupils equal round and reactive. Extraocular motions intact. No scleral icterus. No injection or drainage. ENT: Nose without bleeding, purulent drainage. No face, lip, or tongue swelling. Throat without erythema, tonsillar hypertrophy or exudate. Airway patent. NECK: Trachea midline. Non tender CARDIOVASCULAR: Regular rate and rhythm without murmurs, gallops, or rubs. RESPIRATORY: Clear to auscultation. Breath sounds equal bilaterally. No wheezes, rales, or rhonchi. GASTROINTESTINAL: Abdomen soft, non-tender, nondistended. EXTREMITIES: No edema or joint tenderness. BACK: Nontender without deformity or crepitance. No flank tenderness. SKIN: Anterior neck blanching, erythematous, no petechiae. Very well demarcated and aligned with the neck of her shirt suggesting some type of contact involvement. No swelling. THere are some erythematous patches on her Right arm which are circular and pruritic and appear consistent with possible bug bites Initial Vital Signs Initial Vital Signs: Vital Signs Temperature 98.9 F 09/27/20 04:15 Pulse Rate 88 09/27/20 04:15 Respiratory Rate 16 09/27/20 04:15 Blood Pressure 153/70 H 09/27/20 04:15 Pulse Oximetry 96 09/27/20 04:15 Course Orders Ordered: Discontinued Medications Dexamethasone (Dexamethasone 4 Mg/Ml Vial) 4 mg PO NOW ONE Stop: 09/27/20 04:13 Last Admin: 09/27/20 04:23 Dose: 4 mg Documented by: Diphenhydramine HCl (Diphenhydramine 25 Mg Tablet) 25 mg PO NOW ONE Stop: 09/27/20 04:13 Last Admin: 09/27/20 04:23 Dose: 25 mg Documented by: Famotidine (Famotidine 20 Mg Tablet) 20 mg PO NOW ONE Stop: 09/27/20 04:16 Last Admin: 09/27/20 04:23 Dose: 20 mg Documented by: Vital Signs Vital signs: Vital Signs - 8 hr 09/27/20 04:15 Temperature 98.9 F Pulse Rate 88 Respiratory Rate 16 Blood Pressure 153/70 H Pulse Oximetry 96 MDM - Skin/Abscess/Foreign Bdy MDM Narrative Medical decision making narrative: Patient has no signs of systemic infection or allergy. Her rash is very well demarcated and aligned closely with the neck line of her shirt. Discharge Plan Departure Patient Disposition: Home Clinical Impression: Dermatitis Instructions: DI for Atopic Dermatitis-Adult Activity Restrictions/Additional Instructions: *You have been diagnosed with [ local rash, likely contact dermatitis ] *What to do: *Please stop the Augmentin as it may be playing a role in your reaction todayAvoid using any more Clobetasol as it is likely too strong for your skin. Please use the prescription we have written instead. *Follow up with your primary care provider in 2-3 days, call for an appointment. Let them know you were seen in the Emergency Department and that we ask that you be seen in follow up *Return to ER if you should have any new, worsening or concerning symptoms, such as [ facial swelling, trouble swallowing, trouble breathing or other bothersome symptoms. Prescriptions: New hydrocortisone 1 % cream 1 applic topical TID 7 Days Qty: 28 RF: 0 No Action ascorbic acid (vitamin C) 500 MG tablet 1,000 mg PO QDAY Qty: 0 RF: 0 ergocalciferol (vitamin D2) 8,000 unit/mL Drops 1 ml PO DAILY RF: 0 Spiriva with HandiHaler 18 mcg Capsule, W/Inhalation Device 1 cap INHALATION DAILY RF: 0 albuterol sulfate 90 mcg/actuation Aerosol Powdr Breath Activated 2 puff INHALATION Q4H PRN (Reason: Bronchospasm) RF: 0 atenolol 25 MG tablet 25 mg PO BID RF: 0 furosemide 20 mg Tablet 20 mg PO DAILY RF: 0 potassium chloride 10 mEq Capsule, Extended Release 10 meq RF: 0 Serevent Diskus 50 mcg/dose Blister With Device 50 mcg INHALATION BID RF: 0 vitamin B complex Tablet 1 tab PO DAILY RF: 0 Culturelle 10 billion cell Capsule 1 cap PO DAILY RF: 0 coenzyme Q10 [CoQ-10] 30 mg Capsule 30 mg PO DAILY RF: 0 rosuvastatin [Crestor] 10 mg Tablet 10 mg DAILY RF: 0 Referrals: Boy Kirby MD [Primary Care Provider] -
[2020-09-27 04:15] VITALS: BP 153/70; PULSE 88; RESP 16; TEMP 37.2; O2SAT 96; BMI 20.9
[2020-09-27] MEDS: FAMOTIDINE 20 MG TABLET PO (04:23)
[2020-09-27] MEDS: DEXAMETHASONE 4 MG/ML VIAL PO (04:23)
[2020-09-27] MEDS: diphenhydrAMINE 25 MG TABLET PO (04:23)
[2020-09-27 06:12] VITALS: BP 122/55; PULSE 60; RESP 18; O2SAT 97
== END 2020-09-27 06:12 | disposition home or self-care (01) ==
PROVIDERS: Emergency Provider Emergency Medicine; PCP Internal Medicine
DX: L30.9 Dermatitis, unspecified (principal)
CPT/HCPCS: 99281; 99283; A9270; J1100

== ENCOUNTER → 2020-11-15 14:13 | Outpatient (CLI) | payer MEDICARE, OTHER, SELFPAY ==
[2019-05-26 00:22] VITALS: BMI 20.5
[2020-11-15] MEDS: COVID-19 VACC #1, MRNA(MOD) 100 MCG/0.5 ML VIAL IM (14:23)
== END ==
PROVIDERS: PCP Internal Medicine; Visit Provider Internal Medicine
DX: Z23 Encounter for immunization (principal)
CPT/HCPCS: 0011A; 91301

== ENCOUNTER → 2020-12-13 13:34 | Outpatient (CLI) | payer MEDICARE, OTHER, SELFPAY ==
[2019-05-26 00:22] VITALS: BMI 20.5
[2020-12-13] MEDS: COVID-19 VACC #2, MRNA(MOD) 100 MCG/0.5 ML VIAL IM (13:40)
== END ==
PROVIDERS: PCP Internal Medicine; Visit Provider Internal Medicine
DX: Z23 Encounter for immunization (principal)
CPT/HCPCS: 0012A; 91301

== ENCOUNTER → 2021-01-10 13:04 | Outpatient (CLI) | payer MEDICARE, OTHER, SELFPAY ==
[2019-05-26 00:22] VITALS: BMI 20.5
[2021-01-10 14:11] LABS: Appearance Urine UA CLEAR; Bilirubin Urine UA NEGATIVE (NEGATIVE); Color Urine UA YELLOW; Glucose Urine UA NEGATIVE (Negative); Ketones Urine UA NEGATIVE (NEGATIVE); Leukocyte Esterase Urine UA TRACE (NEGATIVE); Nitrite Urine UA NEGATIVE (Negative); Occult Blood Urine UA TRACE-INTACT (Negative); Protein Urine UA TRACE (Negative); Specific Gravity Urine UA 1.015 (1.000-1.035); Urobilinogen Urine UA 0.2 E.U./dL (0.2)
[2021-01-10 14:13] LABS: Bacteria Urine None Seen
[2021-01-10 14:15] LABS: RBC Urine 0-1/HPF (0-5/HPF); Squamous Epithelial Cell Urine 1-5 /HPF (0-5/HPF); WBC Urine 1-5/HPF (0-5/HPF)
== END ==
PROVIDERS: PCP Internal Medicine; Referring Provider Internal Medicine; Visit Provider Internal Medicine
DX: N39.41 Urge incontinence (principal)
CPT/HCPCS: 81003; 81015; 87086

== ENCOUNTER → 2021-01-31 09:15 | Outpatient (CLI) | payer MEDICARE, OTHER, SELFPAY ==
[2019-05-26 00:22] VITALS: BMI 20.5
[2021-01-31 10:12] LABS: Add Manual Diff / Slide Review NO; Basophils Absolute Auto 0 /uL (0-100); Basophils Percent Auto 0.2 % (0-2); Eosinophils Absolute Auto 100 /uL (0-450); Eosinophils Percent Auto 0.6 % (2-4); Hematocrit 42.5 % (36-46); Hemoglobin 14.4 g/dL (12.0-16.0); Lymphocytes Absolute Auto 900 /uL (1100-4500); Lymphocytes Percent Auto 9.5 % (25-40); Mean Corpuscular HGB Conc 33.8 % (30-36); Mean Corpuscular Hemoglobin 32.3 PG (26-34); Mean Corpuscular Volume 95.6 fL (80-100); Monocytes Absolute Auto 800 /uL (0-900); Neutrophils Absolute Auto 7600 /uL (1500-7000); Neutrophils Percent Auto 80.7 % (50-75); Platelet Count 315 X10^3/uL (150-400); Red Blood Cell Count 4.45 X10^6/uL (4.0-5.2); Red Cell Distribution Width 14.6 % (11.6-14.8); White Blood Cell Count 9.4 X10^3/uL (4.5-11.0)
[2021-01-31 10:51] LABS: Alanine Aminotransferase 14 IU/L (<35); Albumin Globulin Ratio 1.5 (1.0-2.8); Alkaline Phosphatase 101 U/L (38-126); Aspartate Aminotransferase 20 IU/L (14-36); BUN Creatinine Ratio 11.4 (6-22); Bilirubin Total 0.8 mg/dL (0.2-1.3); Blood Urea Nitrogen 9 mg/dL (7-17); Calcium 9.7 mg/dL (8.4-10.2); Carbon Dioxide 26 mmol/L (22-32); Chloride 100 mmol/L (98-107); Cholesterol 199 mg/dL (140-199); Estimated Glomerular Filt Rate > 60.0 mL/min (>60); Globulin 2.7 g/dL (1.7-4.1); Glucose 112 mg/dL (80-110); HDL Cholesterol 105 mg/dL (40-60); HEMOLYSIS < 15 (0-50); LDL Cholesterol Calculated 77 mg/dL (<100); Potassium 4.6 mmol/L (3.4-5.1); Sodium 133 mmol/L (137-145); Total Protein 6.7 g/dL (6.3-8.2); Triglycerides 85 mg/dL (35-150)
== END ==
PROVIDERS: PCP Internal Medicine; Referring Provider Internal Medicine; Visit Provider Internal Medicine
DX: J44.9 Chronic obstructive pulmonary disease, unspecified (principal); I10 Essential (primary) hypertension; Z00.00 Encounter for general adult medical examination without abnormal findings; D47.2 Monoclonal gammopathy
CPT/HCPCS: 36415; 80053; 80061; 85025

== ENCOUNTER → 2021-05-10 09:18 | Outpatient (CLI) | payer MEDICARE, OTHER, SELFPAY ==
[2019-05-26 00:22] VITALS: BMI 20.5
[2021-05-10 10:20] LABS: Alanine Aminotransferase 14 IU/L (<35); Albumin 3.9 g/dL (3.5-5.0); Albumin Globulin Ratio 1.3 (1.0-2.8); Alkaline Phosphatase 92 U/L (38-126); Aspartate Aminotransferase 21 IU/L (14-36); BUN Creatinine Ratio 12.2 (6-22); Blood Urea Nitrogen 9 mg/dL (7-17); Calcium 9.9 mg/dL (8.4-10.2); Carbon Dioxide 26 mmol/L (22-32); Chloride 104 mmol/L (98-107); Cholesterol 199 mg/dL (140-199); Estimated Glomerular Filt Rate > 60.0 mL/min (>60); Globulin 2.9 g/dL (1.7-4.1); Glucose 108 mg/dL (80-110); HDL Cholesterol 97 mg/dL (40-60); HEMOLYSIS < 15 (0-50); LDL Cholesterol Calculated 84 mg/dL (<100); Sodium 136 mmol/L (137-145); Total Protein 6.8 g/dL (6.3-8.2); Triglycerides 88 mg/dL (35-150)
[2021-05-10 10:22] LABS: Potassium 5.5 mmol/L (3.4-5.1)
== END ==
PROVIDERS: PCP Internal Medicine; Referring Provider Internal Medicine Cardiovascular Disease; Visit Provider Internal Medicine Cardiovascular Disease
DX: I10 Essential (primary) hypertension (principal)
CPT/HCPCS: 36415; 80053; 80061

== ENCOUNTER → 2021-05-15 08:28 | Outpatient (CLI) | payer MEDICARE, OTHER, SELFPAY ==
[2019-05-26 00:22] VITALS: BMI 20.5
[2021-05-15 10:19] LABS: BUN Creatinine Ratio 13.7 (6-22); Blood Urea Nitrogen 10 mg/dL (7-17); Calcium 9.4 mg/dL (8.4-10.2); Carbon Dioxide 24 mmol/L (22-32); Chloride 101 mmol/L (98-107); Estimated Glomerular Filt Rate > 60.0 mL/min (>60); Glucose 110 mg/dL (80-110); HEMOLYSIS < 15 (0-50); Potassium 4.8 mmol/L (3.4-5.1); Sodium 133 mmol/L (137-145)
== END ==
PROVIDERS: PCP Internal Medicine; Referring Provider Internal Medicine Cardiovascular Disease; Visit Provider Internal Medicine Cardiovascular Disease
DX: I10 Essential (primary) hypertension (principal)
CPT/HCPCS: 36415; 80048

== ENCOUNTER → 2021-06-06 15:58 | Outpatient (CLI) | payer MEDICARE, OTHER, SELFPAY ==
[2019-05-26 00:22] VITALS: BMI 20.5
[2021-06-06 17:50] LABS: BUN Creatinine Ratio 14.6 (6-22); Blood Urea Nitrogen 12 mg/dL (7-17); Calcium 9.5 mg/dL (8.4-10.2); Carbon Dioxide 26 mmol/L (22-32); Chloride 98 mmol/L (98-107); Estimated Glomerular Filt Rate > 60.0 mL/min (>60); Glucose 106 mg/dL (80-110); HEMOLYSIS < 15 (0-50); Potassium 4.5 mmol/L (3.4-5.1); Sodium 132 mmol/L (137-145)
[2021-06-06 18:17] LABS: Thyroid Stimulating Hormone 1.14 uIU/mL (0.47-4.68)
[2021-06-07 13:12] LABS: Osmolality, Serum 277 mOsmol/kg (280-301)
== END ==
PROVIDERS: PCP Internal Medicine; Referring Provider Internal Medicine Cardiovascular Disease; Visit Provider Internal Medicine Cardiovascular Disease
DX: R00.2 Palpitations (principal); E87.1 Hypo-osmolality and hyponatremia
CPT/HCPCS: 36415; 80048; 83930; 84443

== ENCOUNTER → 2021-07-02 11:53 | Outpatient (CLI) | payer MEDICARE, OTHER, SELFPAY ==
[2019-05-26 00:22] VITALS: BMI 20.5
[2021-07-02 14:41] LABS: BUN Creatinine Ratio 12.7 (6-22); Blood Urea Nitrogen 9 mg/dL (7-17); Calcium 9.3 mg/dL (8.4-10.2); Carbon Dioxide 26 mmol/L (22-32); Chloride 100 mmol/L (98-107); Estimated Glomerular Filt Rate > 60.0 mL/min (>60); Glucose 106 mg/dL (80-110); HEMOLYSIS < 15 (0-50); Potassium 4.4 mmol/L (3.4-5.1); Sodium 133 mmol/L (137-145)
[2021-07-02 15:48] LABS: Sodium Urine Random 59 mmol/L (30-90)
[2021-07-03 16:08] LABS: Osmolality, Serum 278 mOsmol/kg (280-301)
== END ==
PROVIDERS: PCP Internal Medicine; Referring Provider Internal Medicine; Visit Provider Internal Medicine
DX: E87.1 Hypo-osmolality and hyponatremia (principal)
CPT/HCPCS: 36415; 80048; 83930; 84300

== ENCOUNTER 2021-07-19 13:00 | Outpatient (RCR) | payer MEDICARE, OTHER, SELFPAY ==
[2019-05-26 00:22] VITALS: BMI 20.5
--- NOTE | 2021-07-04 14:29 | PT.OIE ---
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 Past Surgical History (Last Reviewed 09/27/20 @ 04:35 by Narendra Beard DO) History of tonsillectomy Status post hysterectomy Visit Care Team Role Provider Type Boy Kirby MD Attending Provider Physician Primary Care Provider Referring Provider Specialty: Internal Medicine Address: [address] [place] [address] Email: [email or web address] Physical Therapy Initial Evaluation PT-OP-A Visit Information Start: 06/22/21 13:07 Freq: Status: Active Protocol: Document 07/04/21 11:15 AMB (Rec: 07/04/21 14:08 AMB [email or web address]) Out-Patient Physical Therapy Visit Information Visit Information Visit Type Initial Evaluation Visit Start Time 11:15 Visit Stop Time 12:00 Total Visit Minutes 45 Visit Number 1 PT-OP-B Current Condition Start: 06/22/21 13:07 Freq: Status: Active Protocol: Document 07/04/21 11:15 AMB (Rec: 07/04/21 11:39 AMB [id number]) Current Condition History of Current Condition Onset Date 6 months Current Complaints urge incontinence History of Current Condition Josefa reports once a day in the morning she has a leak, no nocturia. Possibly leaking with walking, sometimes she notices her pad is wet and doesn't remember when she leaked. Use the cane for walking for about the last 6 months ago. Denies urinary frequency. Drinks a cup of tea and a glass of wine a day. Has some water during the day, and states her urine is light yellow. Denies recent UTI. Denies hesitation, denies prolapse. Reports she has been doing kegels. vaginal delivery, open hysterectomy due to endometriosis. Treatment Goals Patient/Caregiver Goals Stop leaking Prior Functional Status Baseline Function- ADL's Independent Baseline Function- Mobility Independent Current Functional Impairments (Reported) Functional Limitations- ADL's Leaking sometimes with urgency , sometimes doesn't realize she leaked Personal Factors Other Personal Factors That May Effect Pt has difficulty with her Therapy/Recovery history and some is provided by her . PT-OP-I Pelvic Floor Start: 06/22/21 13:07 Freq: Status: Active Protocol: Document 07/04/21 11:15 AMB (Rec: 07/04/21 14:28 AMB [email or web address]) Pelvic Floor Assessment Urine Pelvic Floor Surgery Yes: open hysterectomy Urinary Symptoms Urge Sensation Leakage Size Medium Leakage Cause Urge Leaks Per Day 1 Voiding Frequency every 2-3 hours Nocturia 0 Pads Used In 24 Hours 1 Urine Pad Type Depends Bowel Bowel Surgery No Bowel Symptoms Constipation Pelvic Clock Pelvic Clock 12-3 Atrophy,Tenderness,Tightness Pelvic Clock 3-6 Atrophy,Tenderness,Tightness Pelvic Clock 6-9 Atrophy,Tenderness,Tightness Pelvic Clock 9-12 Atrophy,Tenderness,Tightness Prolapse Prolapse Comments did not test for prolapse due to pt pain with palpation Contraction Ability Voluntary Contraction Weak Voluntary Relaxation Weak Manual Muscle Testing Left 1 Manual Muscle Testing Right 1 Manual Muscle Testing Anterior 1 Manual Muscle Testing Posterior 1 Muscle Endurance (Seconds) 3 Number of Quick Contractions In 10 3 Seconds Comments Pelvic Floor Comments Tends to over use abdominals and glutes PT-OP-T Assessment and Plan Start: 06/22/21 13:07 Freq: Status: Active Protocol: Document 07/04/21 11:15 AMB (Rec: 07/04/21 14:28 AMB [email or web address]) Physical Therapy Assessment Rehab Potential Rehabilitation Potential Fair Evaluation Complexity Number of Personal Factors/Comorbidities 1-2 Number of Body Systems Impaired 3 Clinical Presentation at Evaluation Evolving Impairments Impairments Activity Tolerance,Functional Activities,Strength Goals Two Impairment urgency Short Term Goal (STG) Josefa will walk calmly to the bathroom first thing in the morning without leaking. STG Duration 4 weeks One Impairment pelvic floor strength Short Term Goal (STG) Josefa will perform a kegel without compensating with her abdominal or gluteal muscles. STG Duration 4 weeks Mcfp Goal (LTG) Josefa will perform a pelvic floor contraction in standing for 10 seconds to show improved strength. LTG Duration 8 weeks Assessment Summary Assessment Sabine attends physical therapy with her who helps her provide some of her history. She denies stress incontinence symptoms and it sounds like she has some urgency, but other times is unaware of what is causing her leaking. She states she has been performing kegels, but tends to use her abdominals and gluteals and is quite weak with her pelvic floor. She would not tolerate the biofeedback sensor as she did have pain with just the manual exam. Physical Therapy Plan Frequency and Duration Frequency of Treatment 1x/Week Duration of Treatment 8 weeks Plan of Care Start Date 07/04/21 Plan of Care End Date 08/29/21 Therapeutic Interventions Therapeutic Interventions Home Exercise Program,Manual Therapy,Neuromuscular Re- education,Self-Care/Home Management,Therapeutic Activities,Therapeutic Exercises Modalities Biofeedback,Electric Stimulation Next Visit Focus/Plan Next Note Type Treatment Note Next Visit Plan Further educate in urge reduction and instruct in appropriate pelvic floor strengthening.
--- NOTE | 2021-07-04 14:29 | PT.OPPOC ---
Physical, Occupational & Speech Therapy At [facility] Current Diagnoses Urge incontinence (07/04/21) Visit Care Team Role Provider Type Boy Kirby MD Attending Provider Physician Primary Care Provider Referring Provider Specialty: Internal Medicine Address: [address] [place] [address], [id number] Email: [email or web address] Plan Of Care PT-OP-T Assessment and Plan Start: 06/22/21 13:07 Freq: Status: Active Protocol: Document 07/04/21 11:15 AMB (Rec: 07/04/21 14:28 AMB [email or web address]) Physical Therapy Assessment Rehab Potential Rehabilitation Potential Fair Evaluation Complexity Number of Personal Factors/Comorbidities 1-2 Number of Body Systems Impaired 3 Clinical Presentation at Evaluation Evolving Impairments Impairments Activity Tolerance,Functional Activities,Strength Goals Two Impairment urgency Short Term Goal (STG) Josefa will walk calmly to the bathroom first thing in the morning without leaking. STG Duration 4 weeks One Impairment pelvic floor strength Short Term Goal (STG) Josefa will perform a kegel without compensating with her abdominal or gluteal muscles. STG Duration 4 weeks Personal Care Home Administrator Goal (LTG) Josefa will perform a pelvic floor contraction in standing for 10 seconds to show improved strength. LTG Duration 8 weeks Assessment Summary Assessment Sabine attends physical therapy with her who helps her provide some of her history. She denies stress incontinence symptoms and it sounds like she has some urgency, but other times is unaware of what is causing her leaking. She states she has been performing kegels, but tends to use her abdominals and gluteals and is quite weak with her pelvic floor. She would not tolerate the biofeedback sensor as she did have pain with just the manual exam. Physical Therapy Plan Frequency and Duration Frequency of Treatment 1x/Week Duration of Treatment 8 weeks Plan of Care Start Date 07/04/21 Plan of Care End Date 08/29/21 Therapeutic Interventions Therapeutic Interventions Home Exercise Program,Manual Therapy,Neuromuscular Re- education,Self-Care/Home Management,Therapeutic Activities,Therapeutic Exercises Modalities Biofeedback,Electric Stimulation Next Visit Focus/Plan Next Note Type Treatment Note Next Visit Plan Further educate in urge reduction and instruct in appropriate pelvic floor strengthening. Plan of Care Dates Plan of Care Start Date 07/04/21 Plan of Care End Date 08/29/21 Electronically Signed by: Sadaf Mckeon, ALBARO 07/04/21 [id number] Please Sign and Return: I have reviewed this Plan of Care and certify that the skilled therapy services above are required to meet the patient?s needs. Physician Signature Date Printed Name and Credentials Clinical Instructor Signature Printed Name and Credentials
--- NOTE | 2021-07-12 14:56 | PT.OTN ---
Current Diagnoses Urge incontinence (07/12/21) Physical Therapy Treatment Note PT-OP-A Visit Information Start: 06/22/21 13:07 Freq: Status: Active Protocol: Document 07/12/21 13:15 AMB (Rec: 07/12/21 13:47 AMB [id number]) Out-Patient Physical Therapy Visit Information Visit Information Visit Type Treatment Note Visit Note pt arrive late Visit Start Time 13:15 Visit Stop Time 13:45 Total Visit Minutes 30 Visit Number 2 PT-OP-B Current Condition Start: 06/22/21 13:07 Freq: Status: Active Protocol: Document 07/04/21 11:15 AMB (Rec: 07/04/21 11:39 AMB [id number]) Current Condition History of Current Condition Onset Date 6 months Current Complaints urge incontinence History of Current Condition Josefa reports once a day in the morning she has a leak, no nocturia. Possibly leaking with walking, sometimes she notices her pad is wet and doesn't remember when she leaked. Use the cane for walking for about the last 6 months ago. Denies urinary frequency. Drinks a cup of tea and a glass of wine a day. Has some water during the day, and states her urine is light yellow. Denies recent UTI. Denies hesitation, denies prolapse. Reports she has been doing kegels. vaginal delivery, open hysterectomy due to endometriosis. Treatment Goals Patient/Caregiver Goals Stop leaking Prior Functional Status Baseline Function- ADL's Independent Baseline Function- Mobility Independent Current Functional Impairments (Reported) Functional Limitations- ADL's Leaking sometimes with urgency , sometimes doesn't realize she leaked Personal Factors Other Personal Factors That May Effect Pt has difficulty with her Therapy/Recovery history and some is provided by her . PT-OP-C Subjective Start: 06/22/21 13:07 Freq: Status: Active Protocol: Document 07/12/21 13:15 AMB (Rec: 07/12/21 13:47 AMB [id number]) OP-PT Subjective Patient Comments Patient Comments Josefa attends with , she still has difficulty saying when she leaks but thinks it's improving. PT-OP-I Pelvic Floor Start: 06/22/21 13:07 Freq: Status: Active Protocol: Document 07/04/21 11:15 AMB (Rec: 09/15/21 14:28 AMB [email or web address]) Pelvic Floor Assessment Urine Pelvic Floor Surgery Yes: open hysterectomy Urinary Symptoms Urge Sensation Leakage Size Medium Leakage Cause Urge Leaks Per Day 1 Voiding Frequency every 2-3 hours Nocturia 0 Pads Used In 24 Hours 1 Urine Pad Type Depends Bowel Bowel Surgery No Bowel Symptoms Constipation Pelvic Clock Pelvic Clock 12-3 Atrophy,Tenderness,Tightness Pelvic Clock 3-6 Atrophy,Tenderness,Tightness Pelvic Clock 6-9 Atrophy,Tenderness,Tightness Pelvic Clock 9-12 Atrophy,Tenderness,Tightness Prolapse Prolapse Comments did not test for prolapse due to pt pain with palpation Contraction Ability Voluntary Contraction Weak Voluntary Relaxation Weak Manual Muscle Testing Left 1 Manual Muscle Testing Right 1 Manual Muscle Testing Anterior 1 Manual Muscle Testing Posterior 1 Muscle Endurance (Seconds) 3 Number of Quick Contractions In 10 3 Seconds Comments Pelvic Floor Comments Tends to over use abdominals and glutes PT-OP-Q Treatments Start: 06/22/21 13:07 Freq: Status: Active Protocol: Document 07/12/21 13:15 AMB (Rec: 07/12/21 14:56 AMB [email or web address]) Therapeutic Exercises Sitting Exercises 1 Sitting Exercise Name roll in roll out Comments with extensive education in how to do pelvic floor contraction and urge red PT-OP-T Assessment and Plan Start: 06/22/21 13:07 Freq: Status: Active Protocol: Document 07/12/21 13:15 AMB (Rec: 07/12/21 14:56 AMB [email or web address]) Physical Therapy Assessment Assessment Summary Assessment Josefa's memory issues are a limiting factor with physical therapy, may have to suggest a bladder schedule. She continues to use her abdominals but with extensive education was able to reduce that in the session, will have to see what kind of retention she has. Physical Therapy Plan Next Visit Focus/Plan Next Note Type Treatment Note Next Visit Plan Further educate in urge reduction and instruct in appropriate pelvic floor strengthening.
--- NOTE | 2021-07-19 15:52 | PT.OTN ---
Current Diagnoses Urge incontinence (07/19/21) Physical Therapy Treatment Note PT-OP-A Visit Information Start: 06/22/21 13:07 Freq: Status: Active Protocol: Document 07/19/21 13:00 AMB (Rec: 07/19/21 13:43 AMB [id number]) Out-Patient Physical Therapy Visit Information Visit Information Visit Type Treatment Note Visit Start Time 13:00 Visit Stop Time 13:45 Total Visit Minutes 45 Visit Number 3 PT-OP-B Current Condition Start: 06/22/21 13:07 Freq: Status: Active Protocol: Document 07/04/21 11:15 AMB (Rec: 07/04/21 11:39 AMB [id number]) Current Condition History of Current Condition Onset Date 6 months Current Complaints urge incontinence History of Current Condition Josefa reports once a day in the morning she has a leak, no nocturia. Possibly leaking with walking, sometimes she notices her pad is wet and doesn't remember when she leaked. Use the cane for walking for about the last 6 months ago. Denies urinary frequency. Drinks a cup of tea and a glass of wine a day. Has some water during the day, and states her urine is light yellow. Denies recent UTI. Denies hesitation, denies prolapse. Reports she has been doing kegels. vaginal delivery, open hysterectomy due to endometriosis. Treatment Goals Patient/Caregiver Goals Stop leaking Prior Functional Status Baseline Function- ADL's Independent Baseline Function- Mobility Independent Current Functional Impairments (Reported) Functional Limitations- ADL's Leaking sometimes with urgency , sometimes doesn't realize she leaked Personal Factors Other Personal Factors That May Effect Pt has difficulty with her Therapy/Recovery history and some is provided by her . PT-OP-C Subjective Start: 06/22/21 13:07 Freq: Status: Active Protocol: Document 07/19/21 13:00 AMB (Rec: 07/19/21 13:43 AMB [id number]) OP-PT Subjective Patient Comments Patient Comments Pt has been making it to the bathroom without a big leak, but pad is still wet. PT-OP-I Pelvic Floor Start: 06/22/21 13:07 Freq: Status: Active Protocol: Document 07/04/21 11:15 AMB (Rec: 07/04/21 14:28 AMB [email or web address]) Pelvic Floor Assessment Urine Pelvic Floor Surgery Yes: open hysterectomy Urinary Symptoms Urge Sensation Leakage Size Medium Leakage Cause Urge Leaks Per Day 1 Voiding Frequency every 2-3 hours Nocturia 0 Pads Used In 24 Hours 1 Urine Pad Type Depends Bowel Bowel Surgery No Bowel Symptoms Constipation Pelvic Clock Pelvic Clock 12-3 Atrophy,Tenderness,Tightness Pelvic Clock 3-6 Atrophy,Tenderness,Tightness Pelvic Clock 6-9 Atrophy,Tenderness,Tightness Pelvic Clock 9-12 Atrophy,Tenderness,Tightness Prolapse Prolapse Comments did not test for prolapse due to pt pain with palpation Contraction Ability Voluntary Contraction Weak Voluntary Relaxation Weak Manual Muscle Testing Left 1 Manual Muscle Testing Right 1 Manual Muscle Testing Anterior 1 Manual Muscle Testing Posterior 1 Muscle Endurance (Seconds) 3 Number of Quick Contractions In 10 3 Seconds Comments Pelvic Floor Comments Tends to over use abdominals and glutes PT-OP-Q Treatments Start: 06/22/21 13:07 Freq: Status: Active Protocol: Document 07/19/21 13:00 AMB (Rec: 07/19/21 15:48 AMB [email or web address]) Therapeutic Exercises Sitting Exercises 1 Sitting Exercise Name roll in roll out Comments with extensive education in how to do pelvic floor contraction and urge red PT-OP-T Assessment and Plan Start: 06/22/21 13:07 Freq: Status: Active Protocol: Document 07/19/21 13:00 AMB (Rec: 07/19/21 13:43 AMB [id number]) Physical Therapy Assessment Goals Two Impairment urgency Short Term Goal (STG) Josefa will walk calmly to the bathroom first thing in the morning without leaking. STG Duration 4 weeks One Impairment pelvic floor strength Short Term Goal (STG) Josefa will perform a kegel without compensating with her abdominal or gluteal muscles. STG Duration 4 weeks Detention Goal (LTG) Josefa will perform a pelvic floor contraction in standing for 10 seconds to show improved strength. LTG Duration 8 weeks Assessment Summary Assessment Josefa asked the same questions multiple times during the appointment. Her attended with her. Spent the entire session reviewing previous HEP. Did not progress HEP as she has so many questions about the current one. Pt is going to now be on hold, and agrees to remind her about her exercises and to go to the bathroom more frequently. Physical Therapy Plan Next Visit Focus/Plan Next Note Type Treatment Note Next Visit Plan Further educate in urge reduction and instruct in appropriate pelvic floor strengthening.
--- NOTE | 2021-08-23 16:01 | PT.OPDS ---
Current Diagnoses Urge incontinence (07/19/21) Visit Care Team Role Provider Type Boy Kirby MD Attending Provider Physician Primary Care Provider Referring Provider Specialty: Internal Medicine Address: [address] [place] [address], [facility] Email: [email or web address] Number Visit Number 3 Discharge Summary PT-OP-B Current Condition Start: 06/22/21 13:07 Freq: Status: Active Protocol: Document 07/04/21 11:15 AMB (Rec: 07/04/21 11:39 AMB [id number]) Current Condition History of Current Condition Onset Date 6 months Current Complaints urge incontinence History of Current Condition Josefa reports once a day in the morning she has a leak, no nocturia. Possibly leaking with walking, sometimes she notices her pad is wet and doesn't remember when she leaked. Use the cane for walking for about the last 6 months ago. Denies urinary frequency. Drinks a cup of tea and a glass of wine a day. Has some water during the day, and states her urine is light yellow. Denies recent UTI. Denies hesitation, denies prolapse. Reports she has been doing kegels. vaginal delivery, open hysterectomy due to endometriosis. Treatment Goals Patient/Caregiver Goals Stop leaking Prior Functional Status Baseline Function- ADL's Independent Baseline Function- Mobility Independent Current Functional Impairments (Reported) Functional Limitations- ADL's Leaking sometimes with urgency , sometimes doesn't realize she leaked Personal Factors Other Personal Factors That May Effect Pt has difficulty with her Therapy/Recovery history and some is provided by her . PT-OP-C Subjective Start: 06/22/21 13:07 Freq: Status: Active Protocol: Document 07/19/21 13:00 AMB (Rec: 07/19/21 13:43 AMB [id number]) OP-PT Subjective Patient Comments Patient Comments Pt has been making it to the bathroom without a big leak, but pad is still wet. PT-OP-I Pelvic Floor Start: 06/22/21 13:07 Freq: Status: Active Protocol: Document 07/04/21 11:15 AMB (Rec: 07/04/21 14:28 AMB [email or web address]) Pelvic Floor Assessment Urine Pelvic Floor Surgery Yes: open hysterectomy Urinary Symptoms Urge Sensation Leakage Size Medium Leakage Cause Urge Leaks Per Day 1 Voiding Frequency every 2-3 hours Nocturia 0 Pads Used In 24 Hours 1 Urine Pad Type Depends Bowel Bowel Surgery No Bowel Symptoms Constipation Pelvic Clock Pelvic Clock 12-3 Atrophy,Tenderness,Tightness Pelvic Clock 3-6 Atrophy,Tenderness,Tightness Pelvic Clock 6-9 Atrophy,Tenderness,Tightness Pelvic Clock 9-12 Atrophy,Tenderness,Tightness Prolapse Prolapse Comments did not test for prolapse due to pt pain with palpation Contraction Ability Voluntary Contraction Weak Voluntary Relaxation Weak Manual Muscle Testing Left 1 Manual Muscle Testing Right 1 Manual Muscle Testing Anterior 1 Manual Muscle Testing Posterior 1 Muscle Endurance (Seconds) 3 Number of Quick Contractions In 10 3 Seconds Comments Pelvic Floor Comments Tends to over use abdominals and glutes PT-OP-T Assessment and Plan Start: 06/22/21 13:07 Freq: Status: Active Protocol: Document 08/23/21 16:00 AMB (Rec: 08/23/21 16:01 [facility] [email or web address]) Physical Therapy Assessment Assessment Summary Assessment Josefa was last seen over 1 month ago: Josefa asked the same questions multiple times during the appointment. Her attended with her. Spent the entire session reviewing previous HEP. Did not progress HEP as she has so many questions about the current one. Pt is going to now be on hold, and agrees to remind her about her exercises and to go to the bathroom more frequently. Physical Therapy Plan Discharge Physical Therapy Discharge Reasons No Longer Attending PT
== END 2021-08-24 09:15 ==
LOC: PHYS 13:00
PROVIDERS: PCP Internal Medicine; Referring Provider Internal Medicine; Visit Provider Internal Medicine
DX: N39.41 Urge incontinence (principal)
CPT/HCPCS: 97110; 97162

== ENCOUNTER → 2021-08-21 12:40 | Outpatient (CLI) | payer MEDICARE, OTHER, SELFPAY ==
[2019-05-26 00:22] VITALS: BMI 20.5
[2021-08-21 14:02] LABS: Add Manual Diff / Slide Review NO; Basophils Absolute Auto 0 /uL (0-100); Basophils Percent Auto 0.4 % (0-2); Eosinophils Absolute Auto 0 /uL (0-450); Eosinophils Percent Auto 0.2 % (2-4); Hematocrit 39.4 % (36-46); Hemoglobin 13.6 g/dL (12.0-16.0); Lymphocytes Absolute Auto 700 /uL (1100-4500); Lymphocytes Percent Auto 7.6 % (25-40); Mean Corpuscular HGB Conc 34.5 % (30-36); Mean Corpuscular Hemoglobin 33.7 PG (26-34); Mean Corpuscular Volume 97.7 fL (80-100); Monocytes Absolute Auto 800 /uL (0-900); Monocytes Percent Auto 9.4 % (3-14); Neutrophils Absolute Auto 7200 /uL (1500-7000); Neutrophils Percent Auto 82.4 % (50-75); Platelet Count 320 X10^3/uL (150-400); Red Blood Cell Count 4.04 X10^6/uL (4.0-5.2); Red Cell Distribution Width 15.2 % (11.6-14.8); White Blood Cell Count 8.8 X10^3/uL (4.5-11.0)
[2021-08-23 14:28] LABS: Albumin 3.6 g/dL (2.9-4.4); Alpha-1-Globulin 0.2 g/dL (0.0-0.4); Alpha-2-Globulin 0.6 g/dL (0.4-1.0); Gamma Globulin 1.2 g/dL (0.4-1.8); Globulin Total 2.8 g/dL (2.2-3.9); Protein, Total 6.4 g/dL (6.0-8.5)
== END ==
PROVIDERS: PCP Internal Medicine; Referring Provider Internal Medicine; Visit Provider Internal Medicine
DX: D47.2 Monoclonal gammopathy (principal)
CPT/HCPCS: 36415; 84155; 84165; 85025

== ENCOUNTER 2021-08-29 09:38 | Emergency (ER) | payer MEDICARE, OTHER, SELFPAY ==
[2019-05-26 00:22] VITALS: BMI 20.5
[2021-08-29 10:04] VITALS: BP 156/72; PULSE 88; RESP 16; TEMP 36.9; O2SAT 97; BMI 18.8
--- NOTE | 2021-08-29 10:31 | ED_ITS ---
HPI - Wound/Laceration General Chief Complaint: Wound/Laceration Stated Complaint: CAT SCRATCH ON RIGHT HAND Time Seen by Provider: 08/29/21 10:26 Source: patient and family Mode of arrival: Family Vehicle Limitations: no limitations History of Present Illness HPI narrative: Patient is a 86-year-old female with history of COPD who presents with right hand injury from her cat. Her cat scratched the dorsal of her hand last night around 7:00 p.m.. It is quite red. She is able to move her fingers. No fever or chills. It looks as though she had a previous cat scratched June. The states that this cap is quite finicky. Related Data Home Medications Medication Instructions Recorded Confirmed ascorbic acid (vitamin C) 500 mg 1,000 mg PO QDAY #0 02/13/12 06/23/21 tablet albuterol sulfate 90 mcg/actuation 2 puff INHALATION Q4H PRN 07/15/18 06/23/21 breath activated powder inhaler atenolol 25 mg tablet 25 mg PO BID 07/15/18 06/23/21 ergocalciferol (vitamin D2) 200 1 ml PO DAILY 07/15/18 06/23/21 mcg/mL (8,000 unit/mL) oral drops tiotropium bromide 18 mcg capsule 1 cap INHALATION DAILY 07/15/18 06/23/21 with inhalation device (Spiriva with HandiHaler) furosemide 20 mg tablet 20 mg PO DAILY 05/26/19 06/23/21 Lactobacillus rhamnosus GG 10 1 cap PO DAILY 07/14/19 06/23/21 billion cell capsule (Culturelle) coenzyme Q10 30 mg capsule (CoQ-10) 30 mg PO DAILY 07/14/19 06/23/21 potassium chloride 10 mEq 10 meq 07/14/19 06/23/21 capsule,extended release rosuvastatin 10 mg tablet (Crestor) 10 mg DAILY 07/14/19 06/23/21 salmeterol 50 mcg/dose blister 50 mcg INHALATION BID 07/14/19 06/23/21 powder for inhalation (Serevent Diskus) vitamin B complex 1 tab PO DAILY 07/14/19 06/23/21 Previous Rx's Medication Instructions Recorded prednisone 20 mg tablet 20 mg PO DAILY #5 tab 09/27/20 azithromycin 250 mg tablet See Rx Instructions PO .COMPLEX #6 06/23/21 tab mupirocin 2 % topical ointment 1 applic TOPICAL TID #15 g 06/23/21 cephalexin 500 mg capsule 500 mg PO TID 7 Days #21 cap 08/29/21 Allergies Allergy/AdvReac Type Severity Reaction Status Date / Time piroxicam [PIROXICAM] Allergy Intermediate I FELT Verified 08/29/21 10:09 VERY CRAZY AND NERVOUS WITH IT codeine [CODEINE] Allergy Mild MOOD SWINGS Verified 08/29/21 10:09 Sulfa (Sulfonamide AdvReac Unknown gas Verified 08/29/21 10:09 Antibiotics) [SULFA (SULFONAMIDE ANTIBIOTICS)] Review of Systems Review of Systems Narrative: GENERAL: Denies chills,fever HEENT: Denies throat pain RESPIRATORY: Denies dyspnea, cough, wheezing CARDIOVASCULAR: Denies chest pain, palpitations GASTROINTESTINAL: Denies nausea, vomiting MUSCULOSKELETAL: Denies extremity pain, injury SKIN: See HPI NEUROLOGIC: Denies weakness, dizziness, headache, numbness 8 point review of systems is negative except for those stated above and HPI Patient History Medical History (Updated 08/29/21 @ 10:46 by Disha Roberts DO) Cat scratch Degenerative joint disease (DJD) of hip Diverticulosis Gait instability 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 of spine in adult patient Surgical History History of tonsillectomy Status post hysterectomy Social History household members: spouse Smoking Status: Former smoker Tobacco: How many years used: 20 alcohol intake: never Smoking Status: Former smoker alcohol intake frequency: 0-2 drinks per day Alcohol type: wine Substance Use Type: does not use Exam Initial Vital Signs Initial Vital Signs: Vital Signs Temperature 98.4 F 08/29/21 10:04 Pulse Rate 88 08/29/21 10:04 Respiratory Rate 16 08/29/21 10:04 Blood Pressure 156/72 H 08/29/21 10:04 Pulse Oximetry 97 08/29/21 10:04 GENERAL: Alert 86-year-old female CARDIOVASCULAR: peripheral pulses in tact, cap refill <2 sec RESPIRATORY: No respiratory distress, speaks in full sentences without difficulty EXTREMITIES: Normal range of motion, no clubbing or edema. Neurovascularly inta ct NEUROLOGICAL: Cranial nerves II through XII grossly intact. Normal gait and speech. SKIN: Right hand dorsal side 3 cm superficial laceration good skin approximation significant erythema with dorsal part of the hand. Does not involve any fingers. Course Orders Ordered: Discontinued Medications Diphtheria/Tetanus/Acell Pertussis (Tet,Diph,Pertuss(Acell),Vac/Pf 0.5 Ml Syringe) 0.5 ml IM .ONCE ONE Stop: 08/29/21 10:39 Last Admin: 08/29/21 10:56 Dose: 0.5 ml Documented by: DAWN Vital Signs Vital signs: Vital Signs - 8 hr 08/29/21 10:04 Temperature 98.4 F Pulse Rate 88 Respiratory Rate 16 Blood Pressure 156/72 H Pulse Oximetry 97 MDM - Wound/Laceration MDM Narrative Medical decision making narrative: Significant erythema surrounding the laceration over short period of time. Will start her on oral antibiotics. Nice dressing has been placed by myself. She has been offered Tylenol but states she does not have any pain although it is tender every time I touch it. Discharge Plan Departure Patient Disposition: Home Clinical Impression: Cat scratch of right hand Instructions: DI for Minor Laceration Activity Restrictions/Additional Instructions: *You have been diagnosed with cat scratch right hand *What to do: At this time will start him on some antibiotics. Keep bandage on there for a couple of days. She may apply antibiotic ointment on it 1-2 times daily. Monitor for worsening redness. May ice 20-30 minutes at a time. *Continue to take medications as directed Keflex 500 mg 3 times a day for 7 days--> SENT TO [facility] *Follow up with your primary care provider in 2-3 days *Return to ER if you should have an redness pus swelling pain involvement of finger tips or any new, worsening or concerning symptoms Prescriptions: New cephalexin 500 mg capsule 500 mg PO TID 7 Days Qty: 21 RF: 0 No Action azithromycin 250 mg tablet See Rx Instructions PO .COMPLEX Qty: 6 RF: 0 mupirocin 2 % ointment 1 applic topical TID Qty: 15 RF: 0 ascorbic acid (vitamin C) 500 MG tablet 1,000 mg PO QDAY Qty: 0 RF: 0 ergocalciferol (vitamin D2) 8,000 unit/mL Drops 1 ml PO DAILY RF: 0 Spiriva with HandiHaler 18 mcg Capsule, W/Inhalation Device 1 cap INHALATION DAILY RF: 0 albuterol sulfate 90 mcg/actuation Aerosol Powdr Breath Activated 2 puff INHALATION Q4H PRN (Reason: Bronchospasm) RF: 0 atenolol 25 MG tablet 25 mg PO BID RF: 0 furosemide 20 mg Tablet 20 mg PO DAILY RF: 0 potassium chloride 10 mEq Capsule, Extended Release 10 meq RF: 0 Serevent Diskus 50 mcg/dose Blister With Device 50 mcg INHALATION BID RF: 0 vitamin B complex Tablet 1 tab PO DAILY RF: 0 Culturelle 10 billion cell Capsule 1 cap PO DAILY RF: 0 coenzyme Q10 [CoQ-10] 30 mg Capsule 30 mg PO DAILY RF: 0 rosuvastatin [Crestor] 10 mg Tablet 10 mg DAILY RF: 0 prednisone 20 mg tablet 20 mg PO DAILY Qty: 5 RF: 0 Referrals: Boy Kirby MD [Primary Care Provider] -
[2021-08-29] MEDS: TET,DIPH,PERTUSS(ACELL),VAC/PF 0.5 ML SYRINGE IM (10:56)
== END 2021-08-29 11:29 | disposition home or self-care (01) ==
PROVIDERS: Emergency Provider Emergency Medicine; PCP Internal Medicine
DX: S60.511A Abrasion of right hand, initial encounter (principal); W55.03XA Scratched by cat, initial encounter; Z23 Encounter for immunization
CPT/HCPCS: 90471; 99283; 90715

== ENCOUNTER 2022-05-05 13:28 | Emergency (ER) | payer MEDICARE, OTHER, SELFPAY ==
[2019-05-26 00:22] VITALS: BMI 20.5
[2022-05-05 13:36] VITALS: BP 193/86; PULSE 88; RESP 18; TEMP 36.9; O2SAT 95
[2022-05-05 14:01] LABS: Appearance Urine UA CLOUDY; Bilirubin Urine UA NEGATIVE (NEGATIVE); Color Urine UA YELLOW; Glucose Urine UA NEGATIVE (Negative); Ketones Urine UA 1+ (NEGATIVE); Leukocyte Esterase Urine UA 3+ (NEGATIVE); Nitrite Urine UA POSITIVE (Negative); Occult Blood Urine UA 2+ (Negative); Protein Urine UA 1+ (Negative); Urobilinogen Urine UA 0.2 E.U./dL (0.2)
[2022-05-05 14:13] LABS: pH Urine UA 5.5 (4.5-8.0)
[2022-05-05 14:17] LABS: Bacteria Urine Many (>30); Culture Indicated Urine Specimen Cultured; RBC Urine None Seen (0-5/HPF); WBC Urine >100/HPF (0-5/HPF)
--- NOTE | 2022-05-05 14:23 | DI.CT.S_ITS ---
PROCEDURE: CT PEL WO CON INDICATIONS: Left hip pain TECHNIQUE: After the administration of oral contrast, 5 mm thick sections acquired from the iliac crests to the symphysis. 5 mm coronal and sagittal reformats were then performed. For radiation dose reduction, the following was used: automated exposure control, adjustment of mA and/or kV according to patient size. COMPARISON: None. FINDINGS: Image quality: Excellent. Peritoneum and bowel: Bowel loops demonstrate normal wall thickness and caliber. No free fluid or air. Advanced sigmoid diverticulosis without evidence of diverticulitis. There is moderate fecal bolus rectum present. Genitourinary: Bladder wall thickness is normal. Nodes and vessels: No iliac, pelvic, or inguinal adenopathy by size criteria. Iliac vessels demonstrate normal size. Atherosclerotic calcification in the abdominal aorta noted without evidence of aneurysm. Bones: No evidence of fracture. There is severe joint space narrowing, subchondral sclerosis and cysts in involving the left hip joint. Moderate right hip joint space narrowing present. Miscellaneous: No inguinal hernias. IMPRESSION: 1. Advanced left hip osteoarthritis. No evidence of fracture or dislocation. 2. Incidental sigmoid diverticulosis without evidence of diverticulitis. Approved by: Yann Márquez M.D. on 05/05/2022 at 14:54
--- NOTE | 2022-05-05 14:26 | ED_ITS ---
HPI - General Adult General Chief complaint: Weakness Stated complaint: weakness Time Seen by Provider: 05/05/22 14:08 Source: patient, family and EMS Mode of arrival: EMS History of Present Illness HPI narrative: Patient here for confusion and left hip pain. No fall or injury. Son states confusion and forgetfulness is not new and is likely undiagnosed dementia. This has been ongoing for months. This morning at 11:00 a.m. patient stated to that she could not move her left hip due to pain. She continues with this complaint here. No fall or injury. Patient had not gotten out of bed yet this morning. Brought in here by ambulance. No known injury. is always with the patient. No fall or injury. No prior history of hip surgery or injury Related Data Home Medications Medication Instructions Recorded Confirmed ascorbic acid (vitamin C) 500 mg 1,000 mg PO QDAY ##0 02/13/12 09/04/21 tablet albuterol sulfate 90 mcg/actuation 2 puff inhalation Q4H PRN 07/15/18 09/04/21 breath activated powder inhaler Bronchospasm ergocalciferol (vitamin D2) 200 1 ml PO DAILY 07/15/18 09/04/21 mcg/mL (8,000 unit/mL) oral drops tiotropium bromide 18 mcg capsule 1 cap inhalation DAILY 07/15/18 09/04/21 with inhalation device (Spiriva with HandiHaler) Lactobacillus rhamnosus GG 10 1 cap PO DAILY 07/14/19 09/04/21 billion cell capsule (Culturelle) salmeterol 50 mcg/dose blister 50 mcg inhalation BID 07/14/19 09/04/21 powder for inhalation (Serevent Diskus) metoprolol succinate 50 mg 50 mg PO DAILY 09/04/21 09/04/21 tablet,extended release 24 hr Previous Rx's Medication Instructions Recorded cephalexin 500 mg capsule 500 mg PO TID #15 caps 05/05/22 Allergies Allergy/AdvReac Type Severity Reaction Status Date / Time piroxicam [PIROXICAM] Allergy Intermediate I FELT Verified 05/05/22 13:36 VERY CRAZY AND NERVOUS WITH IT codeine [CODEINE] Allergy Mild MOOD SWINGS Verified 05/05/22 13:36 Sulfa (Sulfonamide AdvReac Unknown gas Verified 05/05/22 13:36 Antibiotics) [SULFA (SULFONAMIDE ANTIBIOTICS)] Review of Systems Review of Systems Narrative: GENERAL: Denies chills, fatigue, malaise, fever, sweats. HEENT: Denies sinus pain, ear pain, sore throat RESPIRATORY: Denies dyspnea, cough CARDIOVASCULAR: Denies chest pain, palpitations GASTROINTESTINAL: Denies nausea, vomiting, abdominal pain : Denies dysuria, frequency, hematuria MUSCULOSKELETAL: Positive for muscle or bony pain SKIN: Denies rash, skin lesions NEUROLOGIC: Denies weakness, numbness, positive for confusion ROS Unobtainable: All systems reviewed & are unremarkable except as noted in HPI and below Patient History Medical History Cat scratch Degenerative joint disease (DJD) of hip Diverticulosis Gait instability 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 of spine in adult patient Surgical History History of tonsillectomy Status post hysterectomy Social History household members: spouse Smoking Status: Former smoker Tobacco: How many years used: 20 alcohol intake: never Smoking Status: Former smoker alcohol intake frequency: 0-2 drinks per day Alcohol type: wine Substance Use Type: does not use Exam Narrative Exam Narrative: GENERAL: in no distress, not toxic not dyspneic, shoes and socks off. Leg exposed. Left-sided HEAD: Normocephalic. EYES: Pupils equal round No scleral icterus. EXTREMITIES: No gross deformities. Examination left lower extremity. Patient on my arrival had knees and hips flexed. On active attempt to extend her leg and knee and hip she complained and localized to left hip as painful. Not weak. Able to fully extend eventually her knee and hip. No bruising or deformity of the left hip. There is no shortening or rotation of the left leg. Strong pedal pulse light touch intact to foot and toes. Foot is warm soft and pink. Patient is able to can flex knees to 90? with left hip pain. NEURO: Patient is awake alert oriented to self and date of and recognizes family at bedside. Clear speech. Negative pronator drift. No facial droop. Light touch intact bilateral face hands and legs. Negative fast exam SKIN: Warm and dry PSYCH: Not anxious, is cooperative Initial Vital Signs Initial Vital Signs: Vital Signs Temperature 98.4 F 05/05/22 13:36 Pulse Rate 88 05/05/22 13:36 Respiratory Rate 18 05/05/22 13:36 Blood Pressure 193/86 H 05/05/22 13:36 Pulse Oximetry 95 05/05/22 13:36 Oxygen Delivery Method 05/05/22 13:36 Course Orders Ordered: Discontinued Medications Acetaminophen (Acetaminophen 325 Mg Tablet) 650 mg PO NOW ONE Stop: 05/05/22 14:26 Last Admin: 05/05/22 14:50 Dose: 650 mg Documented By: EZIO Cephalexin HCl (Cephalexin 250 Mg Capsule) 500 mg PO NOW ONE Stop: 05/05/22 14:26 Last Admin: 05/05/22 14:50 Dose: 500 mg Documented By: EZIO Reevaluation(s) Reevaluation #1: Reviewed results with patient and family. Agree with treatment plan. Pain controlled at this time. Referral to orthopedics given. They do have a family doctor the follow-up for UTI re-evaluation. Return precautions reviewed with patient and family. They desire discharge home Time: 16:17 Vital Signs Vital signs: Vital Signs - 8 hr 05/05/22 13:36 Temperature 98.4 F Pulse Rate 88 Respiratory Rate 18 Blood Pressure 193/86 H Pulse Oximetry 95 Oxygen Delivery Method Room Air Medical Decision Making Differential Diagnosis Differential Diagnosis: Dementia/UTI/hip fracture/hip dislocation/arthritis Lab Data Labs: Lab Results 05/05/22 Range/Units 13:50 Urine Color Yellow Urine Appearance Cloudy Urine pH 5.5 (4.5-8.0) Ur Specific [place] 1.010 (1.000-1.035) Urine Protein 1+ H (Negative) Urine Glucose (UA) Negative (Negative) g/dL Urine Ketones 1+ H (NEGATIVE) Urine Occult Blood 2+ H (Negative) Urine Nitrate Positive H (Negative) Urine Bilirubin Negative (NEGATIVE) Urine Urobilinogen 0.2 (0.2) E.U./dL Ur Leukocyte Esterase 3+ H (NEGATIVE) Urine RBC None seen (0-5/HPF) Urine WBC >100/hpf H (0-5/HPF) Urine Bacteria Many (>30) H (None) Ur Culture Indicated? Specimen cultured Imaging Data CT pelvis: Radiologist's Impression: [address] [address] [address] Scan Report Signed Patient: Caitlin Mcleod MR#: [id number] : 1935 Acct:[id number] Age/Sex: 87 / F Date of Service: 05/05/22 Loc: ED Accession Number: [id number] ?? Procedure: CT pelvis wo con Ordering Provider: Jacinto Thurman MD PROCEDURE:? CT PEL WO CON ? INDICATIONS:? Left hip pain ? TECHNIQUE:? After the administration of oral contrast, 5 mm thick sections acquired from the iliac crests to the symphysis.? 5 mm coronal and sagittal reformats were then performed.? For radiation dose reduction, the following was used:? automated exposure control, adjustment of mA and/or kV according to patient size.? ? COMPARISON:? None. ? FINDINGS:? Image quality:? Excellent.? ? Peritoneum and bowel:? Bowel loops demonstrate normal wall thickness and caliber.? No free fluid or air.? Advanced sigmoid diverticulosis without evidence of diverticulitis.? There is moderate fecal bolus rectum present. ? Genitourinary:? Bladder wall thickness is normal.? ? Nodes and vessels:? No iliac, pelvic, or inguinal adenopathy by size criteria.? Iliac vessels demonstrate normal size.? Atherosclerotic calcification in the abdominal aorta noted without evidence of aneurysm. ? Bones:? No evidence of fracture.? There is severe joint space narrowing, subchondral sclerosis and cysts in involving the left hip joint.? Moderate right hip joint space narrowing present. ? Miscellaneous:? No inguinal hernias.? ? IMPRESSION:? ? 1. Advanced left hip osteoarthritis.? No evidence of fracture or dislocation. ? 2. Incidental sigmoid diverticulosis without evidence of diverticulitis. ? ? ? Approved by: Yann Márquez M.D. on 05/05/2022 at 14:54? MDM Narrative Medical decision making narrative: Appropriate for discharge home. Exam and laboratory studies and imaging are reassuring. Return precautions reviewed patient and family. Pain control at time discharge. At this time clinically likely hip joint pain causing patient's distress. Urinalysis reviewed UTIs well. Likely not septic joint. No fever. Likely unrelated problems. No blood work indicated. Patient in no distress. Not toxic. Referral to orthopedics given. Antibiotics started here at this department. Pain controlled. Discharge Plan Departure Patient Disposition: Home Clinical Impression: Hip osteoarthritis, Acute UTI Instructions: Dietary Supplements For Osteoarthritis, DI for Urinary Tract Infection (UTI), DI for Osteoarthritis, DI for Hip Pain Activity Restrictions/Additional Instructions: Please use your cane or may need a walker to help for walking. May use provided bedpan until you are able to get a bedside commode for toileting. See family doctor to re-evaluate this week for your urinary tract infection. Please call provided orthopedic office tomorrow for office recheck of your hip pain/osteoarthritis. May continue [id number] Tylenol for pain. Return if worse or for any questions or concerns. Prescription for Keflex has been sent to your [facility] pharmacy here in [facility] Prescriptions: New cephalexin 500 mg capsule 500 mg PO TID Qty: 15 0RF No Action ascorbic acid (vitamin C) 500 MG tablet 1,000 mg PO QDAY Qty: 0 ergocalciferol (vitamin D2) 8,000 unit/mL Drops 1 ml PO DAILY Spiriva with HandiHaler 18 mcg Capsule, W/Inhalation Device 1 cap INHALATION DAILY albuterol sulfate 90 mcg/actuation Aerosol Powdr Breath Activated 2 puff INHALATION Q4H PRN (Reason: Bronchospasm) Serevent Diskus 50 mcg/dose Blister With Device 50 mcg INHALATION BID Culturelle 10 billion cell Capsule 1 cap PO DAILY metoprolol succinate 50 mg Tablet Extended Release 24 Hr 50 mg PO DAILY Referrals: Antonia Lloyd MD [Physician] - Sheba Cavazos MD [Primary Care Provider] -
[2022-05-05] MEDS: ACETAMINOPHEN 325 MG TABLET 650 MG PO (14:50)
[2022-05-05] MEDS: cephALEXin 250 MG CAPSULE 500 MG PO (14:50)
[2022-05-05 16:20] VITALS: BP 177/74; PULSE 82; RESP 18; O2SAT 98
== END 2022-05-05 16:25 | disposition home or self-care (01) ==
PROVIDERS: Emergency Provider Emergency Medicine; PCP Internal Medicine
DX: M16.12 Unilateral primary osteoarthritis, left hip (principal); N39.0 Urinary tract infection, site not specified
CPT/HCPCS: 72192; 81001; 87086; 99284

== ENCOUNTER 2023-10-08 12:14 | Emergency (ER) | payer MEDICARE, OTHER, SELFPAY ==
[2019-05-26 00:22] VITALS: BMI 20.5
[2023-10-08] VITALS (8 sets, daily range): BP systolic 144–169; BP diastolic 65–79; PULSE 75–90; RESP 14–20; TEMP 36.6; O2SAT 95–99; BMI 17.1
--- NOTE | 2023-10-08 12:32 | DI.RAD.S_ITS ---
PROCEDURE: XR CHEST 1V INDICATIONS: Right-sided chest wall pain TECHNIQUE: One view of the chest was acquired. COMPARISON: [facility], CR, XR CHEST 1V, 05/26/2019, 0:05. FINDINGS: Surgical changes and devices: None. Lungs and pleura: Lungs are clear. No pleural effusions or pneumothorax. Mediastinum: Mediastinal contours appear normal. Heart size is normal. Scattered atheromatous calcifications are present within the aortic arch. Bones and chest wall: No suspicious bony lesions. Overlying soft tissues appear unremarkable. IMPRESSION: No acute cardiopulmonary abnormality is seen. Dictated by: Oanh Hewitt M.D. on 10/08/2023 at 14:08 Approved by: Oanh Hewitt M.D. on 10/08/2023 at 14:08
--- NOTE | 2023-10-08 12:36 | ED.FALL ---
HPI - Fall General Chief Complaint: Fall Stated Complaint: Chest Pain Time Seen by Provider: 10/08/23 12:32 Source: patient and EMS Mode of arrival: EMS History of Present Illness HPI Narrative: Patient is an 88-year-old female. She is here in the emergency department with her . Has a history of baseline dementia. Has had multiple falls over the past several days/weeks. EMS report that they have been out of the house multiple times for lift assist. She was brought in today because she was having right-sided chest wall/breast discomfort. No problems breathing. No abdominal pain. Related Data Home Medications Medication Instructions Recorded Confirmed ascorbic acid (vitamin C) 500 mg 1,000 mg PO QDAY ##0 02/13/12 09/04/21 tablet albuterol sulfate 90 mcg/actuation 2 puff inhalation Q4H PRN 07/15/18 09/04/21 breath activated powder inhaler Bronchospasm ergocalciferol (vitamin D2) 200 1 ml PO DAILY 07/15/18 09/04/21 mcg/mL (8,000 unit/mL) oral drops tiotropium bromide 18 mcg capsule 1 cap inhalation DAILY 07/15/18 09/04/21 with inhalation device (Spiriva with HandiHaler) Lactobacillus rhamnosus GG 10 1 cap PO DAILY 07/14/19 09/04/21 billion cell capsule (Culturelle) salmeterol 50 mcg/dose blister 50 mcg inhalation BID 07/14/19 09/04/21 powder for inhalation (Serevent Diskus) metoprolol succinate 50 mg 50 mg PO DAILY 09/04/21 09/04/21 tablet,extended release 24 hr Previous Rx's Medication Instructions Recorded cephalexin 500 mg capsule 500 mg PO TID #15 caps 05/05/22 Allergies Allergy/AdvReac Type Severity Reaction Status Date / Time piroxicam [PIROXICAM] Allergy Intermediate I FELT Verified 10/08/23 15:56 VERY CRAZY AND NERVOUS WITH IT codeine [CODEINE] Allergy Mild MOOD SWINGS Verified 10/08/23 15:56 Sulfa (Sulfonamide AdvReac Unknown gas Verified 10/08/23 15:56 Antibiotics) [SULFA (SULFONAMIDE ANTIBIOTICS)] Review of Systems Constitutional Constitutional: Reports system reviewed and no additional complaints, except as documented Respiratory Respiratory: Reports system reviewed and no additional complaints, except as documented Gastrointestinal Gastrointestinal: Reports system reviewed and no additional complaints, except as documented Genitourinary Genitourinary: Reports system reviewed and no additional complaints, except as documented Patient History Medical History Cat scratch Gait instability 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 Diverticulosis Surgical History History of tonsillectomy Status post hysterectomy Social History household members: spouse Smoking Status: Former smoker Tobacco: How many years used: 20 alcohol intake: never Smoking Status: Former smoker alcohol intake frequency: 0-2 drinks per day Alcohol type: wine Substance Use Type: does not use Exam Initial Vital Signs Initial Vital Signs: Vital Signs Temperature 97.8 F 10/08/23 12:20 Pulse Rate 90 10/08/23 12:20 Respiratory Rate 20 10/08/23 12:20 Blood Pressure 169/79 H 10/08/23 12:20 Pulse Oximetry 95 10/08/23 12:20 Oxygen Delivery Method Room Air 10/08/23 12:20 HENMT Head: normal to inspection and normocephalic Chest Other: No tenderness to palpation of the right-sided chest wall. Resp Effort & Inspection: normal respiratory effort and not tachypneic Cardio Rate: regular rate Rhythm: regular rhythm Skin Other: Multiple wounds in various stages of healing throughout her upper and lower extremities. Neuro Other: Patient is alert to person. She states she is at the ?doctor's office? Course Orders Ordered: ED Orders 10/08/23 12:32 XR chest 1V Stat 10/08/23 12:33 Consult to SCRAP METAL COLLECTOR - Box Lining Machine Feeder Stat 10/08/23 12:36 Consult to [facility] - Box Lining Machine Feeder Stat 10/08/23 12:40 EKG-12 Lead Stat 10/08/23 14:33 Consult to Home Health Stat Discontinued Medications Acetaminophen (Acetaminophen 325 Mg Tablet) 650 mg PO NOW ONE Stop: 10/08/23 14:15 Last Admin: 10/08/23 14:24 Dose: 650 mg Documented By: NIC Hydrocodone Bitart/Acetaminophen (Hydrocodone/Acet 5/325 Tablet) 1 tab PO NOW ONE Stop: 10/08/23 16:02 Last Admin: 10/08/23 16:04 Dose: 1 tab Documented By: AMV Vital Signs Vital signs: Vital Signs - 8 hr 10/08/23 12:20 10/08/23 13:55 10/08/23 13:59 Temperature 97.8 F Pulse Rate 90 78 78 Respiratory Rate 20 14 17 Blood Pressure 169/79 H 169/76 H Pulse Oximetry 95 97 98 Oxygen Delivery Method Room Air Room Air 10/08/23 14:00 10/08/23 14:30 10/08/23 15:00 Temperature Pulse Rate 77 75 84 Respiratory Rate 16 17 17 Blood Pressure Pulse Oximetry 97 99 98 Oxygen Delivery Method 10/08/23 15:12 10/08/23 15:12 10/08/23 15:30 Temperature Pulse Rate 82 79 Respiratory Rate 19 18 Blood Pressure 144/65 H Pulse Oximetry 97 98 Oxygen Delivery Method MDM - Fall Imaging Data Chest x-ray: Radiologist's Impression: PROCEDURE: XR CHEST 1V INDICATIONS: Right-sided chest wall pain TECHNIQUE: One view of the chest was acquired. COMPARISON: [facility], , XR CHEST 1V, 05/26/2019, 0:05. FINDINGS: Surgical changes and devices: None. Lungs and pleura: Lungs are clear. No pleural effusions or pneumothorax. Mediastinum: Mediastinal contours appear normal. Heart size is normal. Scattered atheromatous calcifications are present within the aortic arch. Bones and chest wall: No suspicious bony lesions. Overlying soft tissues appear unremarkable. IMPRESSION: No acute cardiopulmonary abnormality is seen. ECG Data Attestation: I personally reviewed and interpreted this ECG as follows: Interpretation: Sinus rhythm Left axis deviation Normal QRS No ST T wave changes [facility] Narrative Medical decision making narrative: Patient has bruising on the center of her chest on the right side of her chest that is tender to palpation which seems to be the source of her discomfort. She is multiple bruises on her upper and lower extremities. Low suspicion for ACS. Chest x-ray is unremarkable. No rib fractures noted. It was obvious that the patient and her need help at home. They were seen by social work. I did sign off on home health which per report will come out to start the process within the next couple days. Was no indication for admission to the hospital today. She is at her baseline mental status. She was wheelchair bound at baseline. Will discharge patient home. Discharge Plan Departure Patient Disposition: Home Clinical Impression: Chest wall contusion, Right-sided chest wall pain Instructions: How to Prevent Falls Activity Restrictions/Additional Instructions: You can give her Tylenol or ibuprofen for any discomfort. Continue the rest of her medications as directed. Recommend you contact her primary provider for follow-up. Return to the emergency department for new symptoms. Prescriptions: No Action ascorbic acid (vitamin C) 500 MG tablet 1,000 mg PO QDAY Qty: 0 ergocalciferol (vitamin D2) 8,000 unit/mL Drops 1 ml PO DAILY Spiriva with HandiHaler 18 mcg Capsule, W/Inhalation Device 1 cap INHALATION DAILY albuterol sulfate 90 mcg/actuation Aerosol Powdr Breath Activated 2 puff INHALATION Q4H PRN (Reason: Bronchospasm) cephalexin 500 mg capsule 500 mg PO TID Qty: 15 0RF Serevent Diskus 50 mcg/dose Blister With Device 50 mcg INHALATION BID Culturelle 10 billion cell Capsule 1 cap PO DAILY metoprolol succinate 50 mg Tablet Extended Release 24 Hr 50 mg PO DAILY Referrals: Sheba Cavazos MD [Primary Care Provider] - Stand Alone Forms: Patient Portal/API
[2023-10-08] MEDS: ACETAMINOPHEN 325 MG TABLET 650 MG PO (14:24)
--- NOTE | 2023-10-08 14:54 | CM.DANOTE ---
Addendum entered by Roma Rivera 10/08/23 16:51: Due to staff informing SW of bruising on various parts of patients body APS report was completed citing concern pt and family are in need of more support. Online Report Confirmation Number: [id number] Reported By: Roma Rivera Date/Time Submitted: 10/08/2023 04:51 PM VR 16:52 Original Note: SOCIAL WORK NOTE 13:30 Patient is an 88yo female who is brought in by EMS for concern of fall and right sided chest pain. She is medically cleared by ED MD and referred to GABY to assist with Home Health referral. SW met with pt at bedside. provides report that pt recently has been more weak. She is wheelchair bound and he has been struggling to assist to lift her from the chair onto the bed. He denies that she has been falling but rather when he attempts to help her from the wheelchair she goes down to the floor and then he cannot get her back up. they have had to call EMS to assist to lift patient off the floor. SW spoke with patient about home health referral and services agencies can provide. SW also recommended he look into private pay caregiving for additional assistance to help with patients ADL's. he verbalized understanding. SW spoke with Maryann at [facility] [phone] who identifies PT sessions available over the next two days. Face to face completed and chart notes faxed to [facility]. Discharge Planning/Care Management CM Discharge Assessment Start: 10/08/23 14:50 Freq: Status: Active Protocol: Document 10/08/23 14:51 VR (Rec: 10/08/23 14:54 VR [id number]) Discharge Planning Assessment Assigned Mission Support Specialist GABY Block, DEPUTY SHERIFF K9 HANDLER DPOA/Assigned Designee Name : Rinku Mcleod Contact Information [phone] Advance Directives? Yes History Provided By Patient,Family Member, Significant Other Has Patient been admitted in last 30 No days? Prior Living Arrangements House Comment Lives with in [place] Household Members spouse Type of transporation used prior to Relies on Others admit Independent with ADL's No: assists Is patient alert and oriented? No: to person and place Needs Assistance With Bathing,Grooming,Toileting Caregiver for Another No Patient/Family Preference Home with Home Health Barriers to Discharge No Discharge Plan Home with Home Health Community Services Physical Therapy,Home Health Aid,Social Work Transportation Arrangement Family Referrals Initiated Home Health If patient plan is home with home health Yes : Has signed face to face form been completed? Medicare Choice List Provided Yes Medicare choice list reviewed on family electronic tablet with SNF/HH Preference Signature Home Health Contact Name/Phone Maryann [phone] Please Provide Date Initial DC 10/08/23 Assessment Was Performed GABY Block, DEPUTY SHERIFF K9 HANDLER
[2023-10-08] MEDS: HYDROCODONE/ACET 5/325 TABLET 1 TAB PO (16:04)
--- NOTE | 2023-10-08 16:08 | PC.NURSE ---
Pt's educated on how to change dressing on her upper bilat arms daily
== END 2023-10-08 16:21 | disposition home or self-care (01) ==
PROVIDERS: Emergency Provider Emergency Medicine; PCP Internal Medicine
DX: S20.211A Contusion of right front wall of thorax, initial encounter (principal); R07.89 Other chest pain; R29.6 Repeated falls
CPT/HCPCS: 71045; 93005; 93010; 99283

== ENCOUNTER 2023-10-18 07:20 | Inpatient (IN) | payer MEDICARE, OTHER, SELFPAY ==
[2019-05-26 00:22] VITALS: BMI 20.5
[2023-10-18] VITALS (12 sets, daily range): BP systolic 94–150; BP diastolic 55–70; PULSE 96–115; RESP 16–25; TEMP 36.8–37.2; O2SAT 92–95; BMI 16.5
--- NOTE | 2023-10-18 07:42 | ED_ITS ---
HPI - Altered Mental Status General Chief Complaint: Wound/Laceration Stated Complaint: bed sores- hospice apt 10am Time Seen by Provider: 10/18/23 07:30 History of Present Illness HPI narrative: 88-year-old female presented to emergency room by EMS accompanied by her with complaint of mental status change with moaning and groin overlying long. Patient has background history of chronic pain syndrome requiring taking Percocet daily every 6 hours, degenerative joint disease, scoliosis, COPD, chronic wound to the upper extremity. provides most of the history as patient has severe dementia. He described that patient has hospice appointment at 10:00 a.m. at home today, he just having hot time assisting her throughout the night, patient after dinner has been restless and moaning and groaning. She was not able to rest at all throughout the night, she normally takes oxycodone every 6 hours, last dose was 6:00 p.m., no complain of fever chills cough congestion. No abdominal pain, patient in emergency room as I enter the room, is moaning groin and Colace for ?help?. She has not able to provide much history, she has normal patent airway, not oriented to time place and person, vital signs at this time is stable. Code status, DNI DNR per Related Data Home Medications Medication Instructions Recorded Confirmed ascorbic acid (vitamin C) 500 mg 1,000 mg PO QDAY ##0 02/13/12 09/04/21 tablet albuterol sulfate 90 mcg/actuation 2 puff inhalation Q4H PRN 07/15/18 09/04/21 breath activated powder inhaler Bronchospasm ergocalciferol (vitamin D2) 200 1 ml PO DAILY 07/15/18 09/04/21 mcg/mL (8,000 unit/mL) oral drops tiotropium bromide 18 mcg capsule 1 cap inhalation DAILY 07/15/18 09/04/21 with inhalation device (Spiriva with HandiHaler) Lactobacillus rhamnosus GG 10 1 cap PO DAILY 07/14/19 09/04/21 billion cell capsule (Culturelle) salmeterol 50 mcg/dose blister 50 mcg inhalation BID 07/14/19 09/04/21 powder for inhalation (Serevent Diskus) metoprolol succinate 50 mg 50 mg PO DAILY 09/04/21 09/04/21 tablet,extended release 24 hr Previous Rx's Medication Instructions Recorded cephalexin 500 mg capsule 500 mg PO TID #15 caps 05/05/22 Allergies Allergy/AdvReac Type Severity Reaction Status Date / Time piroxicam [PIROXICAM] Allergy Intermediate I FELT Verified 10/18/23 07:47 VERY CRAZY AND NERVOUS WITH IT codeine [CODEINE] Allergy Mild MOOD SWINGS Verified 10/18/23 07:47 Sulfa (Sulfonamide AdvReac Unknown gas Verified 10/18/23 07:47 Antibiotics) [SULFA (SULFONAMIDE ANTIBIOTICS)] Review of Systems Review of Systems Narrative: Of system negative except mental status change, agitation Psychiatric Comments: Patient is agitated moaning groaning per Patient History Medical History Cat scratch Gait instability 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 Initial Vital Signs Initial Vital Signs: Vital Signs Temperature 98.3 F 10/18/23 07:23 Pulse Rate 107 H 10/18/23 07:23 Respiratory Rate 20 10/18/23 07:23 Blood Pressure 136/67 10/18/23 07:23 Pulse Oximetry 92 10/18/23 07:23 Oxygen Delivery Method Room Air 10/18/23 07:23 Const Other: Mildly cachectic looking individual, HENMT Mouth: oral mucosae normal and oral mucosa abnormal (Dry) Eyes General: Yes appearance normal, both eyes and all related structures Neck Neck: normal visual inspection Resp Effort & Inspection: normal respiratory effort, able to speak in complete sentences, abnormal respiratory pattern, no audible wheezes and no cough Cardio Palpation: normal PMI Rate: regular rate Rhythm: regular rhythm Heart Sounds: S1 normal and S2 normal GI Inspection: normal to inspection, abdominal wall ecchymosis, no edema and non- distended Percussion: normal to percussion Auscultation: normal bowel sounds Back/Spine/Pelvis Sacrum: erythema Skin General: warm Wounds: wounds noted (Chronic wound to the left upper extremity, mild erythema to the left hip ) Neuro General: not oriented x3, no meningeal signs, no focal motor deficits and patient confused Cognition: abnormal cognition Coordination: other (Patient is not able to follow commands to be evaluated) Extrem General: muscle atrophy Psych Mental Status: other (Abnormal mentation with severe dementia) Mood: other (Abnormal mentation with severe dementia) Judgment: poor Scores GCS [place] coma scale eye opening: Spontaneous [place] coma scale verbal response: Confused [place] coma scale motor response: Localising [place] coma scale total score: 13 Course Orders Ordered: ED Orders 10/18/23 07:37 Consult to CLOTH INSPECTOR - Rail Engineer Stat EKG-12 Lead Stat 10/18/23 07:53 Complete Blood Count AUTO DIFF Stat Comprehensive Metabolic Panel Stat Lactate (Lactic Acid) Stat Prothrombin Time INR Stat Thyroid Stimulating Hormone Stat 10/18/23 08:14 Ammonia (NH3) Stat 10/18/23 08:56 Urinalysis and Microscopic Stat Urine Culture Stat Sodium Chloride (Normal Saline 0.9%) 1,000 mls @ 150 mls/hr IV CONT GOLDEN Last Admin: 10/18/23 08:05 Dose: 150 mls/hr Documented By: KERRY Discontinued Medications Ceftriaxone Sodium 1,000 mg/ (Sodium Chloride) 100 mls @ 200 mls/hr IV NOW ONE Stop: 10/18/23 10:51 Last Admin: 10/18/23 11:17 Dose: 200 mls/hr Documented By: PRATIMA Morphine Sulfate (Morphine 2 Mg/Ml Inj) 2 mg IV NOW ONE Stop: 10/18/23 08:21 Last Admin: 10/18/23 08:25 Dose: 2 mg Documented By: KERRY Vital Signs Vital signs: Vital Signs - 8 hr 10/18/23 07:23 10/18/23 08:15 10/18/23 08:30 Temperature 98.3 F Pulse Rate 107 H 104 H 107 H Respiratory Rate 20 Blood Pressure 136/67 Pulse Oximetry 92 93 94 Oxygen Delivery Method Room Air 10/18/23 09:00 10/18/23 09:30 10/18/23 09:30 Temperature Pulse Rate 115 H 97 H Respiratory Rate 20 Blood Pressure 94/57 L Pulse Oximetry 94 94 Oxygen Delivery Method Room Air 10/18/23 09:37 10/18/23 09:37 10/18/23 10:00 Temperature Pulse Rate 108 H 101 H Respiratory Rate 16 Blood Pressure 150/70 H Pulse Oximetry 94 94 Oxygen Delivery Method 10/18/23 10:00 10/18/23 10:30 Temperature Pulse Rate 96 H Respiratory Rate Blood Pressure 142/62 H Pulse Oximetry 94 Oxygen Delivery Method Room Air MDM - Altered Mental Status Lab Data 10/18/23 07:53 10/18/23 07:53 Labs: Lab Results 10/18/23 10/18/23 10/18/23 Range/Units 07:53 08:14 08:56 WBC 16.1 H (4.5-11.0) X10^3/uL RBC 3.82 L (4.0-5.2) X10^6/uL Hgb 12.1 (12.0-16.0) g/dL Hct 36.2 (36-46) % MCV 94.7 (80-100) fL MCH 31.8 (26-34) PG MCHC 33.6 (30-36) % RDW 13.9 (11.6-14.8) % Plt Count 514 H (150-400) X10^3/uL Neut % (Auto) 86.9 H (50-75) % Lymph % (Auto) 2.2 L (25-40) % [place] % (Auto) 10.4 (3-14) % Eos % (Auto) 0.1 L (2-4) % Baso % (Auto) 0.4 (0-2) % Neut # (Auto) 38854 H (7332-2844) /uL Lymph # (Auto) 400 L (3183-9212) /uL [place] # (Auto) 1700 H (0-900) /uL Eos # (Auto) 0 (0-450) /uL Baso # (Auto) 100 (0-100) /uL PT 12.7 H (9.4-12.5) SECONDS INR 1.1 (0.9-1.3) Sodium 138 (137-145) mmol/L Potassium 4.8 (3.4-5.1) mmol/L Chloride 104 (98-107) mmol/L Carbon Dioxide 27 (22-32) mmol/L BUN 26 H (7-17) mg/dL Creatinine 0.89 (0.52-1.04) mg/dL Estimated GFR > 60 (>60) mL/min BUN/Creatinine Ratio 29.2 H (6-22) Glucose 132 H (80-110) mg/dL Lactate 2.9 H (0.7-2.1) mmol/L Calcium 9.4 (8.4-10.2) mg/dL Total Bilirubin 0.6 (0.2-1.3) mg/dL AST 24 (14-36) IU/L ALT 16 (<35) IU/L Alkaline Phosphatase 71 (38-126) U/L Ammonia < 9 L (9-30) umol/L Total Protein 6.7 (6.3-8.2) g/dL Albumin 3.4 L (3.5-5.0) g/dL Globulin 3.3 (1.7-4.1) g/dL Albumin/Globulin Ratio 1.0 (1.0-2.8) TSH 1.20 (0.47-4.68) uIU/mL Urine Color Yellow Urine Appearance Clear Urine pH 6.0 (4.5-8.0) Ur Specific [place] 1.025 (1.000-1.035) Urine Protein 2+ H (Negative) Urine Glucose (UA) Negative (Negative) g/dL Urine Ketones 1+ H (NEGATIVE) Urine Occult Blood 3+ H (Negative) Urine Nitrate Positive H (Negative) Urine Bilirubin Negative (NEGATIVE) Urine Urobilinogen 1.0 (0.2) E.U./dL Ur Leukocyte Esterase 1+ H (NEGATIVE) Urine RBC 10-30/hpf H (0-5/HPF) Urine WBC 30-100/hpf H (0-5/HPF) Ur Squamous Epith Cells 0-1 /hpf (0-5/HPF) Amorphous Sediment 2+ Urine Bacteria Many (>30) H (None) 10/18/23 Range/Units 10:18 WBC (4.5-11.0) X10^3/uL RBC (4.0-5.2) X10^6/uL Hgb (12.0-16.0) g/dL Hct (36-46) % MCV (80-100) fL MCH (26-34) PG MCHC (30-36) % RDW (11.6-14.8) % Plt Count (150-400) X10^3/uL Neut % (Auto) (50-75) % Lymph % (Auto) (25-40) % [place] % (Auto) (3-14) % Eos % (Auto) (2-4) % Baso % (Auto) (0-2) % Neut # (Auto) (0507-9663) /uL Lymph # (Auto) (4438-4311) /uL [place] # (Auto) (0-900) /uL Eos # (Auto) (0-450) /uL Baso # (Auto) (0-100) /uL PT (9.4-12.5) SECONDS INR (0.9-1.3) Sodium (137-145) mmol/L Potassium (3.4-5.1) mmol/L Chloride (98-107) mmol/L Carbon Dioxide (22-32) mmol/L BUN (7-17) mg/dL Creatinine (0.52-1.04) mg/dL Estimated GFR (>60) mL/min BUN/Creatinine Ratio (6-22) Glucose (80-110) mg/dL Lactate 1.2 (0.7-2.1) mmol/L Calcium (8.4-10.2) mg/dL Total Bilirubin (0.2-1.3) mg/dL AST (14-36) IU/L ALT (<35) IU/L Alkaline Phosphatase (38-126) U/L Ammonia (9-30) umol/L Total Protein (6.3-8.2) g/dL Albumin (3.5-5.0) g/dL Globulin (1.7-4.1) g/dL Albumin/Globulin Ratio (1.0-2.8) TSH (0.47-4.68) uIU/mL Urine Color Urine Appearance Urine pH (4.5-8.0) Ur Specific [place] (1.000-1.035) Urine Protein (Negative) Urine Glucose (UA) (Negative) g/dL Urine Ketones (NEGATIVE) Urine Occult Blood (Negative) Urine Nitrate (Negative) Urine Bilirubin (NEGATIVE) Urine Urobilinogen (0.2) E.U./dL Ur Leukocyte Esterase (NEGATIVE) Urine RBC (0-5/HPF) Urine WBC (0-5/HPF) Ur Squamous Epith Cells (0-5/HPF) Amorphous Sediment Urine Bacteria (None) ECG Data Interpretation: Normal sinus rhythm heart rate of 106 tachycardia, [place] 190 QRS 80 QT 350 QTC 464 left axis deviation normal ST segment MDM Narrative Medical decision making narrative: 88-year-old with severe dementia accompanied by with assistance of EMS with complaint of mental status change with mourning and groaning not consolable throughout the night. Supposedly there is a intake by the hospice staff at 10:00 a.m. in the morning. described to the EMS stat he has not able to take care of her in her current state and can not wait for hospice to arrive at 10:00 a.m.. Subsequently patient was brought into the emergency room for evaluation. After interacting with the hospice agency, we were told that patient can not be evaluated in the emergency room, patient need to be discharged back home in order for them to evaluate her an intake her for hospice care.. At the present time, I have just spoken to the , patient is DNI DNR status At about 10 30, patient's lab results shows evidence of UTI, after administration of 2 mg of morphine, patient is moaning and groaning seems to be improving, we will start Rocephin 1 g IV for UTI. At this time I feel patient will probably eventually need to be admitted to the hospital and planning for hospice care. at 1120, discuss with family member regarding this management, they are agreeable. At 11:25 a.m., spoken to the hospitalist on-call, Dr. Lee was discussed about patient's clinical management, UTI evidence, lactic acid elevation, he agreed to accept the patient. Social service consultation may be beneficial while patient is inpatient Discharge Plan Departure Clinical Impression: Acute UTI (urinary tract infection) Altered mental status Qualifiers: Altered mental status type: unspecified Qualified Code(s): R41.82 - Altered mental status, unspecified Prescriptions: No Action ascorbic acid (vitamin C) 500 MG tablet 1,000 mg PO QDAY Qty: 0 ergocalciferol (vitamin D2) 8,000 unit/mL Drops 1 ml PO DAILY Spiriva with HandiHaler 18 mcg Capsule, W/Inhalation Device 1 cap INHALATION DAILY albuterol sulfate 90 mcg/actuation Aerosol Powdr Breath Activated 2 puff INHALATION Q4H PRN (Reason: Bronchospasm) cephalexin 500 mg capsule 500 mg PO TID Qty: 15 0RF Serevent Diskus 50 mcg/dose Blister With Device 50 mcg INHALATION BID Culturelle 10 billion cell Capsule 1 cap PO DAILY metoprolol succinate 50 mg Tablet Extended Release 24 Hr 50 mg PO DAILY Referrals: Sheba Cavazos MD [Primary Care Provider] -
[2023-10-18 08:04] LABS: Add Manual Diff / Slide Review NO; Basophils Absolute Auto 100 /uL (0-100); Basophils Percent Auto 0.4 % (0-2); Eosinophils Absolute Auto 0 /uL (0-450); Eosinophils Percent Auto 0.1 % (2-4); Hematocrit 36.2 % (36-46); Hemoglobin 12.1 g/dL (12.0-16.0); Lymphocytes Absolute Auto 400 /uL (1100-4500); Lymphocytes Percent Auto 2.2 % (25-40); Mean Corpuscular HGB Conc 33.6 % (30-36); Mean Corpuscular Hemoglobin 31.8 PG (26-34); Mean Corpuscular Volume 94.7 fL (80-100); Monocytes Absolute Auto 1700 /uL (0-900); Monocytes Percent Auto 10.4 % (3-14); Neutrophils Absolute Auto 14000 /uL (1500-7000); Neutrophils Percent Auto 86.9 % (50-75); Platelet Count 514 X10^3/uL (150-400); Red Blood Cell Count 3.82 X10^6/uL (4.0-5.2); Red Cell Distribution Width 13.9 % (11.6-14.8); White Blood Cell Count 16.1 X10^3/uL (4.5-11.0)
[2023-10-18] MEDS: SODIUM CHLORIDE 0.9% 1,000 ML 150 ML IV ×3 (08:05→22:11)
[2023-10-18 08:09] LABS: INR 1.1 (0.9-1.3); Prothrombin Time 12.7 SECONDS (9.4-12.5)
[2023-10-18 08:14] LABS: Alanine Aminotransferase 16 IU/L (<35); Albumin 3.4 g/dL (3.5-5.0); Alkaline Phosphatase 71 U/L (38-126); Aspartate Aminotransferase 24 IU/L (14-36); BUN Creatinine Ratio 29.2 (6-22); Bilirubin Total 0.6 mg/dL (0.2-1.3); Blood Urea Nitrogen 26 mg/dL (7-17); Calcium 9.4 mg/dL (8.4-10.2); Carbon Dioxide 27 mmol/L (22-32); Chloride 104 mmol/L (98-107); Estimated Glomerular Filt Rate > 60 mL/min (>60); Globulin 3.3 g/dL (1.7-4.1); Glucose 132 mg/dL (80-110); HEMOLYSIS < 15 (0-50); Lactate (Lactic Acid) 2.9 mmol/L (0.7-2.1); Potassium 4.8 mmol/L (3.4-5.1); Sodium 138 mmol/L (137-145); Total Protein 6.7 g/dL (6.3-8.2)
[2023-10-18] MEDS: MORPHINE 2 MG/ML INJ IV ×6 (08:25→20:18)
[2023-10-18 08:29] LABS: Ammonia (NH3) < 9 umol/L (9-30)
--- NOTE | 2023-10-18 09:07 | PC.NURSE ---
Patient has multiple wounds on her left arm and a wound on her posterior right arm, left hip wound with redness, skin breakdown, and puss. Pt brought in for pain, however patient has difficulty verbalizing pain locations. Pt does state pain to left hip and her groin area. Skin in her hazel area is intact. Pt states it is painful whenever you touch her and is constantly yelling out help me!. Pt's son and state this is abnormal for her starting this morning.
--- NOTE | 2023-10-18 09:12 | PC.NURSE ---
Pt tolerated in and out catheterization well, sample obtained and sent to lab.
--- NOTE | 2023-10-18 09:32 | PC.NURSE ---
Ashley from [facility] ) called to inquire if patient would be discharged home for their 11am hospice appointment. Dr. Sheridan was consulted and Ashley was informed at this time we are waiting for results and are uncertain of a discharge time. Ashley states she will attempt to reschedule hospice to visit patient tomorrow.
[2023-10-18 09:43] LABS: Reflexed Lactate in 2 Hours Y
[2023-10-18 09:47] LABS: Appearance Urine UA CLEAR; Bilirubin Urine UA NEGATIVE (NEGATIVE); Color Urine UA YELLOW; Glucose Urine UA NEGATIVE (Negative); Ketones Urine UA 1+ (NEGATIVE); Leukocyte Esterase Urine UA 1+ (NEGATIVE); Nitrite Urine UA POSITIVE (Negative); Occult Blood Urine UA 3+ (Negative); Protein Urine UA 2+ (Negative); Specific Gravity Urine UA 1.025 (1.000-1.035)
[2023-10-18 09:56] LABS: RBC Urine 10-30/HPF (0-5/HPF); WBC Urine 30-100/HPF (0-5/HPF)
[2023-10-18 09:57] LABS: Amorphous Sediment Urine 2+; Bacteria Urine Many (>30); Squamous Epithelial Cell Urine 0-1 /HPF (0-5/HPF)
[2023-10-18 10:28] LABS: Lactate 2HR (Lactic Acid Rflx) 1.2 mmol/L (0.7-2.1)
[2023-10-18] MEDS: cefTRIAXone 1,000 MG in SODIUM CHLORIDE 0.9% 100 ML 200 MG IV (11:17)
--- NOTE | 2023-10-18 12:01 | P.HP_ITS ---
History of Present Illness History of Present Illness Date Patient Seen: 10/18/23 Chief complaint: bed sores- hospice apt 10am Narrative: Caitlin Mcleod is an 88yo F with PMH of COPD and severe dementia who presents with worsening mental status. Patient is demented so history obtained from the son. He states his father who is 87yo has been caring for the patient for the last year after she has had a decline in mentation with worsening Alzheimer's. She has lost quite a bit of weight, but continues to eat when given food. Over the past few days her mentation has acutely worsened and she has been crying out, moaning and hallucinating. She was supposed to have hospice do an initial intake visit today at 10am, but she was brought to the ED before this. In the ED she was found to have a UTI. Family ok with IV abx to treat UTI and see if her mentation improves, but otherwise no escalation in care. 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 Diverticulosis Surgical History History of tonsillectomy Status post hysterectomy Social History household members: spouse Smoking Status: Former smoker Tobacco: How many years used: 20 alcohol intake: never Meds Home Medications and Allergies Home Medications Medication Instructions Recorded Confirmed Type ascorbic acid (vitamin C) 500 mg 1,000 mg PO QDAY ##0 02/13/12 10/18/23 History tablet albuterol sulfate 90 mcg/actuation 2 puff inhalation Q4H PRN 07/15/18 10/18/23 History breath activated powder inhaler Bronchospasm ergocalciferol (vitamin D2) 200 1 ml PO DAILY 07/15/18 10/18/23 History mcg/mL (8,000 unit/mL) oral drops tiotropium bromide 18 mcg capsule 1 cap inhalation DAILY 07/15/18 10/18/23 History with inhalation device (Spiriva with HandiHaler) Lactobacillus rhamnosus GG 10 1 cap PO DAILY 07/14/19 10/18/23 History billion cell capsule (Culturelle) salmeterol 50 mcg/dose blister 50 mcg inhalation BID 07/14/19 10/18/23 History powder for inhalation (Serevent Diskus) metoprolol succinate 50 mg 50 mg PO DAILY 09/04/21 10/18/23 History tablet,extended release 24 hr donepezil 5 mg tablet 5 mg PO DAILY 10/18/23 10/18/23 History fluticasone propionate 110 1 puff inhalation BID 10/18/23 10/18/23 History mcg/actuation HFA aerosol inhaler (Flovent HFA) oxycodone-acetaminophen 5 mg-325 1 tab PO 4XD PRN Pain (Scale Score 10/18/23 10/18/23 History mg tablet 4-6) tolterodine 2 mg tablet 2 mg PO BID 10/18/23 10/18/23 History Allergies Allergy/AdvReac Type Severity Reaction Status Date / Time piroxicam [PIROXICAM] Allergy Intermediate I FELT Verified 10/18/23 07:47 VERY CRAZY AND NERVOUS WITH IT codeine [CODEINE] Allergy Mild MOOD SWINGS Verified 10/18/23 07:47 Sulfa (Sulfonamide AdvReac Unknown gas Verified 10/18/23 07:47 Antibiotics) [SULFA (SULFONAMIDE ANTIBIOTICS)] Review of Systems Review of Systems Narrative: All other systems reviewed with the patient and are negative unless otherwise stated. Exam Vital Signs (past 8 hours): - 10/18/23 07:23 10/18/23 08:15 10/18/23 08:30 Temperature 98.3 F Pulse Rate 107 H 104 H 107 H Respiratory Rate 20 Blood Pressure 136/67 Pulse Oximetry 92 93 94 Oxygen Delivery Method Room Air 10/18/23 09:00 10/18/23 09:30 10/18/23 09:30 Temperature Pulse Rate 115 H 97 H Respiratory Rate 20 Blood Pressure 94/57 L Pulse Oximetry 94 94 Oxygen Delivery Method Room Air 10/18/23 09:37 10/18/23 09:37 10/18/23 10:00 Temperature Pulse Rate 108 H 101 H Respiratory Rate 16 Blood Pressure 150/70 H Pulse Oximetry 94 94 Oxygen Delivery Method 10/18/23 10:00 10/18/23 10:30 10/18/23 11:00 Temperature Pulse Rate 96 H 99 H Respiratory Rate Blood Pressure 142/62 H Pulse Oximetry 94 95 Oxygen Delivery Method Room Air 10/18/23 11:00 Temperature Pulse Rate Respiratory Rate Blood Pressure 137/60 Pulse Oximetry Oxygen Delivery Method Oxygen Delivery Method Room Air Narrative Exam Narrative: GEN: cachectic elderly woman sleeping, moaning occasionally HEENT: dry mucous membranes, PERRL NECK: trachea midline, no JVD CV: regular rate and rhythm, no murmurs PULM: clear bilaterally ABD: soft, nontender, nondistended, no organomegaly EXT: warm and well perfused with no edema NEURO: demented Objective Labs 10/18/23 07:53 10/18/23 07:53 Labs: Laboratory Results - last 24 hr 10/18/23 10/18/23 10/18/23 07:53 08:14 08:56 WBC 16.1 H RBC 3.82 L Hgb 12.1 Hct 36.2 MCV 94.7 MCH 31.8 MCHC 33.6 RDW 13.9 Plt Count 514 H Neut % (Auto) 86.9 H Lymph % (Auto) 2.2 L [place] % (Auto) 10.4 Eos % (Auto) 0.1 L Baso % (Auto) 0.4 Neut # (Auto) 85738 H Lymph # (Auto) 400 L [place] # (Auto) 1700 H Eos # (Auto) 0 Baso # (Auto) 100 PT 12.7 H INR 1.1 Sodium 138 Potassium 4.8 Chloride 104 Carbon Dioxide 27 BUN 26 H Creatinine 0.89 Estimated GFR > 60 BUN/Creatinine Ratio 29.2 H Glucose 132 H Lactate 2.9 H Calcium 9.4 Total Bilirubin 0.6 AST 24 ALT 16 Alkaline Phosphatase 71 Ammonia < 9 L Total Protein 6.7 Albumin 3.4 L Globulin 3.3 Albumin/Globulin Ratio 1.0 TSH 1.20 Urine Color Yellow Urine Appearance Clear Urine pH 6.0 Ur Specific [place] 1.025 Urine Protein 2+ H Urine Glucose (UA) Negative Urine Ketones 1+ H Urine Occult Blood 3+ H Urine Nitrate Positive H Urine Bilirubin Negative Urine Urobilinogen 1.0 Ur Leukocyte Esterase 1+ H Urine RBC 10-30/hpf H Urine WBC 30-100/hpf H Ur Squamous Epith Cells 0-1 /hpf Amorphous Sediment 2+ Urine Bacteria Many (>30) H 10/18/23 10:18 WBC RBC Hgb Hct MCV MCH MCHC RDW Plt Count Neut % (Auto) Lymph % (Auto) [place] % (Auto) Eos % (Auto) Baso % (Auto) Neut # (Auto) Lymph # (Auto) [place] # (Auto) Eos # (Auto) Baso # (Auto) PT INR Sodium Potassium Chloride Carbon Dioxide BUN Creatinine Estimated GFR BUN/Creatinine Ratio Glucose Lactate 1.2 Calcium Total Bilirubin AST ALT Alkaline Phosphatase Ammonia Total Protein Albumin Globulin Albumin/Globulin Ratio TSH Urine Color Urine Appearance Urine pH Ur Specific [place] Urine Protein Urine Glucose (UA) Urine Ketones Urine Occult Blood Urine Nitrate Urine Bilirubin Urine Urobilinogen Ur Leukocyte Esterase Urine RBC Urine WBC Ur Squamous Epith Cells Amorphous Sediment Urine Bacteria Assessment & Plan Assessment & Plan narrative: # acute metabolic encephalopathy likely from UTI -acute worsening in mentation over last 3 days, likely due to UTI -treat UTI as below -morphine and ativan PRN for comfort -COVER CUTTER MACHINE to arrange hospice, family hoping for a facility instead of home -no escalation in care # UTI -UA with pyuria -rocephin 1g x3 days # severe Alzheimer's dementia -continue donepezil # COPD -O2 for comfort Code status is DNR/DNI. DVT prophylaxis with nothing given comfort care. Proxy is . I have reviewed home meds and used all available resources to reconcile the home meds. Case discussed with ED physician/APC and patient will be admitted to the hospitalist service for further workup and management. This patient will be admitted as observation and will require less than 2 midnights of hospital time to treat UTI.
[2023-10-18] MEDS: LORazepam 2 MG/ML ORAL SOL 1 MG SL ×3 (12:40→19:51)
[2023-10-18 14:44] LABS: Magnesium 1.8 mg/dL (1.6-2.3)
--- NOTE | 2023-10-18 15:07 | CM.DANOTE ---
DCP Assessment Note Pt is an 88yo F with a PMH of dementia/Alzheimer's here with a UTI. Family was set to start care with [facility] this morning at 10am but spouse brought her to the hospital due to AMS- pt found to have a UTI. PCP Sheba Cavazos Payer Medicare and commercial insurance. FISHERMAN HELPER reviewed EMR. Per provider, set to dc to SNF on comfort care when can be arranged with PO antibiotics. FISHERMAN HELPER entered room and introduced self and role. Pt laying in bed groaning in pain, RN notified and provided appropriate care. FISHERMAN HELPER met with pt spouse (Adina cell [phone] home [phone]) and son (Also named Psychiatric [phone]) in waiting room. DIL at bedside ( p [phone]). Son reports pt has declined in mobility and ability over the past 6 months. pt is concerned about his dad's ability to care for her. Pt has a PP caregiver (Rena) that comes 3-4days per week for a few hours everyday, and son and DIL assist in care as able. Son/spouse preference at this time is for pt to dc to a facility with [facility] support for either the technician terminal and repeater plan or to give family time to arrange increased caregivers in the home. FISHERMAN HELPER provided Senior Resources booklet if care were to be increased in home. FISHERMAN HELPER explained to family that it would be private pay at any SNF at around 462/day, spouse and son agreeable. Son reports they have a hospital bed and commode in the home already. FISHERMAN HELPER spoke with Alethea at . Agreed to review. Acceptance pending. FISHERMAN HELPER spoke with Jeannie at [facility]. Jeannie confirm they can provide services at start if pt arrives PP to SNF. Jeannie set tentative start date for [facility] at 10am Friday at [facility]. Jeannie reports only needing dc summary when available. Plan: pending acceptance. Pt potentially to dc to tomorrow PP with [facility] to open Friday at 10am at [facility]. CM team will continue to follow closely. GABY Benjamin Discharge Planning/Care Management CM Discharge Assessment Start: 10/18/23 15:04 Freq: Status: Active Protocol: Document 10/18/23 15:05 CATHLEEN (Rec: 10/18/23 15:07 [id number]) Discharge Planning Assessment Assigned Remodeler GABY Dash DPOA/Assigned Designee Name Adina (spouse) Contact Information [phone] Advance Directives? Yes Advance Directives on File No History Provided By Patient,Family Member, Significant Other,Medical Record Prior Living Arrangements House Household Members spouse Type of transporation used prior to Relies on Others admit Independent with ADL's No Is patient alert and oriented? No Needs Assistance With Bathing,Eating,Grooming,Meal Prep,Toileting,Managing Medications,Home Chores / Shopping Comment grout machine operator, Rena, with pt 3-4 days per week for a few hours during the day DME Already Rented / Owned Hospital Bed,Other Comment SNF for comfort care with HN[facility] support Comment pending accepting facility Discharge Plan [facility] Facility Transportation Arrangement facility Referrals Initiated [facility],Other Additional Comment [facility] reviewing for comfort care, [facility] has previous referral SNF/HH Preference [facility] for comfort care Has Agency SNF been contacted Yes Whiteboard Updated in Patient Room with Yes name and ext. # of Remodeler Comment pt son has CM business card Review Status In Process Next Review Type Continued Stay Review
[2023-10-19 04:49] LABS: Add Manual Diff / Slide Review NO; Basophils Absolute Auto 100 /uL (0-100); Basophils Percent Auto 1.3 % (0-2); Eosinophils Absolute Auto 200 /uL (0-450); Eosinophils Percent Auto 1.8 % (2-4); Hematocrit 28.4 % (36-46); Hemoglobin 9.8 g/dL (12.0-16.0); Lymphocytes Absolute Auto 600 /uL (1100-4500); Lymphocytes Percent Auto 6.1 % (25-40); Mean Corpuscular HGB Conc 34.5 % (30-36); Mean Corpuscular Hemoglobin 32.5 PG (26-34); Mean Corpuscular Volume 94.2 fL (80-100); Monocytes Absolute Auto 1200 /uL (0-900); Monocytes Percent Auto 13.3 % (3-14); Neutrophils Absolute Auto 7100 /uL (1500-7000); Neutrophils Percent Auto 77.5 % (50-75); Platelet Count 317 X10^3/uL (150-400); Red Blood Cell Count 3.02 X10^6/uL (4.0-5.2); Red Cell Distribution Width 13.8 % (11.6-14.8); White Blood Cell Count 9.2 X10^3/uL (4.5-11.0)
[2023-10-19] MEDS: SODIUM CHLORIDE 0.9% 1,000 ML 150 ML IV ×2 (04:56→12:40)
[2023-10-19 04:57] LABS: Blood Urea Nitrogen 20 mg/dL (7-17); Calcium 8.3 mg/dL (8.4-10.2); Carbon Dioxide 24 mmol/L (22-32); Chloride 112 mmol/L (98-107); Estimated Glomerular Filt Rate > 60 mL/min (>60); Glucose 87 mg/dL (80-110); HEMOLYSIS < 15 (0-50); Potassium 3.9 mmol/L (3.4-5.1); Sodium 138 mmol/L (137-145)
[2023-10-19] MEDS: MORPHINE 2 MG/ML INJ IV ×3 (08:16→17:25)
[2023-10-19] MEDS: cefTRIAXone 1,000 MG in SODIUM CHLORIDE 0.9% 100 ML 200 MG IV (08:21)
[2023-10-19 08:26] VITALS: PULSE 89
[2023-10-19] MEDS: MORPHINE 10 MG/0.5 ML ORAL SYRINGE SL (09:10)
--- NOTE | 2023-10-19 11:08 | P.PN_ITS ---
Subjective Subjective Interval history: Patient sleeping and not awakened. WBC normalized today. Exam Vital Signs (past 8 hours): - 10/19/23 08:26 Pulse Rate 89 Oxygen Delivery Method Room Air Oxygen Flow Rate 0 Narrative Exam Narrative: GEN: cachectic elderly woman sleeping, sleeping HEENT: dry mucous membranes, PERRL NECK: trachea midline, no JVD CV: regular rate and rhythm, no murmurs PULM: clear bilaterally ABD: soft, nontender, nondistended, no organomegaly EXT: warm and well perfused with no edema NEURO: demented Objective Labs 10/19/23 04:24 10/19/23 04:24 Labs: Laboratory Results - last 24 hr 10/18/23 10/19/23 07:53 04:24 WBC 9.2 RBC 3.02 L Hgb 9.8 L Hct 28.4 L MCV 94.2 MCH 32.5 MCHC 34.5 RDW 13.8 Plt Count 317 Neut % (Auto) 77.5 H Lymph % (Auto) 6.1 L [place] % (Auto) 13.3 Eos % (Auto) 1.8 L Baso % (Auto) 1.3 Neut # (Auto) 7100 H Lymph # (Auto) 600 L [place] # (Auto) 1200 H Eos # (Auto) 200 Baso # (Auto) 100 Sodium 138 Potassium 3.9 Chloride 112 H Carbon Dioxide 24 BUN 20 H Creatinine 0.54 Estimated GFR > 60 BUN/Creatinine Ratio 37.0 H Glucose 87 Calcium 8.3 L Magnesium 1.8 PFSH Medical History Cat scratch Gait instability 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 Diverticulosis Surgical History History of tonsillectomy Status post hysterectomy Social History household members: spouse Smoking Status: Former smoker Tobacco: How many years used: 20 alcohol intake: never Assessment & Plan Assessment & Plan narrative: # acute metabolic encephalopathy likely from UTI -acute worsening in mentation over last 3 days, likely due to UTI -treat UTI as below -morphine and ativan PRN for comfort -STRINGED INSTRUMENT ASSEMBLER to arrange hospice, family hoping for a facility instead of home -no escalation in care # UTI -UA with pyuria -rocephin 1g x3 days # severe Alzheimer's dementia -continue donepezil # COPD -O2 for comfort Code status is DNR/DNI. DVT prophylaxis with nothing given comfort care. Proxy is . I have reviewed home meds and used all available resources to reconcile the home meds. Dispo: Hospice at facility being arranged through STRINGED INSTRUMENT ASSEMBLER. 1-2 days. Quality VTE Deep Vein Thrombosis/Pulmonary Embolism Present on Admission: No
[2023-10-19] MEDS: LORazepam 2 MG/ML ORAL SOL 1 MG SL (12:58)
--- NOTE | 2023-10-19 14:03 | CM.DPNOTE ---
DCP Note BRUSH MAKER MACHINE reviewed EMR. Per UR after review, pt meets inpt status as of admission. 3rd midnight for Medicare SNF placement would be on Friday. Per March at [facility], unsure if they have an appropriate bed or not until Friday. Unable to officially accept her at this time. All meds would need to be PO or sublingual, no IV morphine. March reports hospice cannot be involved until after Medicare comfort care coverage ends after 5-7 days due to both being under Medicare Part A coverage. Hospice can be involved once a pt is at [facility] for private pay. March reported they may not be able to accept her at all and to consider alterative options as well. Per Jeannie at [facility], pt family already had informational visit. Jeannie reports they cannot schedule an opening date into next week after the medicare comfort care coverage would end, but, [facility] could call them to initiate the start of services from their end. Jeannie confirms family has a hospital bed at home. Jeannie canceled Friday 10am start time but agreed to hold onto referral incase family decided to take her home. BRUSH MAKER MACHINE spoke with mila Holden via phone. BRUSH MAKER MACHINE updated Adina on above information. Adina reported he would pass it along to pt's spouse. Son reports pt's spouse seems very overwhelmed by pt's current state. Son confirms preference would be [facility], either covered by medicare or private pay, with hospice to support when able. Plan: DCP pending available bed/acceptance at [facility]. CM team will continue to pursue/consider alternative options. Plan may have to be home with [facility] and increased PP caregivers in the home. CM team will continue to follow closely. GABY Benjamin
[2023-10-20] MEDS: MORPHINE 2 MG/ML INJ IV ×6 (04:22→20:38)
[2023-10-20] MEDS: LORazepam 2 MG/ML INJ 1 MG IV ×2 (08:41→15:26)
--- NOTE | 2023-10-20 09:10 | PM.PN.1 ---
Subjective Subjective Interval history: Sleeping and appears comfortable. Exam Vital Signs (past 8 hours): Oxygen Delivery Method Room Air Oxygen Flow Rate 0 Narrative Exam Narrative: Sleeping, NAD Neck with no JVD Lungs: clear and normal rate CV: regular. 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 Metabolic encephalopathy (likely from UTI), POA and active, -acute worsening in mentation over last 3 days, likely due to UTI -treated UTI as below -morphine and ativan PRN for comfort -NUTRITION DIRECTOR to arrange hospice, family hoping for a facility instead of home -no escalation in care 2. UTI, POA and active, -UA with pyuria -rocephin 1g x3 days 3. Alzheimer's dementia, POA and active. -continue donepezil 4. COPD, POA and active. -O2 for comfort Code status is DNR/DNI. DVT prophylaxis with nothing given comfort care. Proxy is . I have reviewed home meds and used all available resources to reconcile the home meds. Dispo: Hospice at facility being arranged through NUTRITION DIRECTOR. 1-2 days. Quality VTE Deep Vein Thrombosis/Pulmonary Embolism Present on Admission: No
[2023-10-20] MEDS: cefTRIAXone 1,000 MG in SODIUM CHLORIDE 0.9% 100 ML 200 MG IV (10:33)
--- NOTE | 2023-10-20 12:06 | CM.DPNOTE ---
DCP Note STOREROOM SUPERVISOR reviewed EMR. STOREROOM SUPERVISOR lvm with Alethea at to inquire about bed availability/if they can accept patient. STOREROOM SUPERVISOR spoke with spouse at bedside. Agreeable to [facility] pending acceptance for while medicare covers it and then preference is to go home with hospice and increased caregivers in home. Understands that [facility] may not be able to accept and we will know more tomorrow. STOREROOM SUPERVISOR updated Jeannie at [facility] of plan- agreeable to starting services when she dc's from , pending acceptance. STOREROOM SUPERVISOR spoke with son Adina on the phone. Reports preference remains [facility] if can accept, working on backup plan now with father. Understands need for increased caregivers in the home if pt goes home either from here or . Adina preference is for pt to remain at pending acceptance private pay for rat exterminator. Adina reports him and pt spouse are going to review plan today and have more information for this STOREROOM SUPERVISOR in the morning. STOREROOM SUPERVISOR completed PASSR to best of ability. Due to pt discharging with severe dementia on comfort care, this STOREROOM SUPERVISOR is unclear of the proper protocol for completing PASSR. STOREROOM SUPERVISOR will coordinate with PASSR coordinator Stacey tomorrow- she is unavailable today due to the holiday. Plan: pending [facility] acceptance and bed availability. CM team will continue to follow closely with [facility]/family. GABY Benjamin
[2023-10-20] MEDS: SODIUM CHLORIDE 0.9% FLUSH 10 ML IV (20:46)
[2023-10-21] MEDS: MORPHINE 2 MG/ML INJ IV ×3 (00:45→08:26)
[2023-10-21] MEDS: SODIUM CHLORIDE 0.9% FLUSH 10 ML IV ×4 (00:46→20:52)
[2023-10-21] MEDS: LORazepam 2 MG/ML ORAL SOL 1 MG PO (02:19)
--- NOTE | 2023-10-21 02:43 | PC.NURSE ---
0140 Pt. was still restless, after medicated with 2 mg. of IVP Morphine. IV Lorazepam was not available, message sent to Dr. Reyes. Order received to medicate patient with Lorazepam Intensol 1 mg. admin. Patient is sleeping now, will continue plan of care & monitor.
--- NOTE | 2023-10-21 10:53 | P.PN_ITS ---
Subjective Subjective Interval history: Not obtainable, patient is obtunded. Exam Vital Signs (past 8 hours): Oxygen Delivery Method Room Air Oxygen Flow Rate 0 Narrative Exam Narrative: She appears comfortable. She is not awake. She is breathing comfortably with a slight increase in rate and effort. Her abdomen is non-distended. No leg edema. 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 Metabolic encephalopathy (likely from UTI), POA and active, -comfort measures and initiation of hospice at [facility] on October 22. 2. UTI, POA and active, -UA with pyuria -rocephin 1g x3 days 3. Alzheimer's dementia, POA and active. -comfort measures 4. COPD, POA and active. -comfort measures Code status is DNR/DNI. DVT prophylaxis with nothing given comfort care. Proxy is . The facilities asked that all medications be converted to oral dosing for the next 24 hours the patient is now placed on oral Ativan and morphine solution instead of IV. Dispo: Hospice at [facility], anticipated discharge is October 22. Quality VTE Deep Vein Thrombosis/Pulmonary Embolism Present on Admission: No
[2023-10-21] MEDS: SCOPOLAMINE 1 PATCH TOP (11:20)
[2023-10-21] MEDS: MORPHINE 10 MG/0.5 ML ORAL SYRINGE PO ×5 (11:20→19:46)
--- NOTE | 2023-10-21 11:39 | P.PN_ITS ---
Subjective Subjective Interval history: He is not really talking, he is sitting up in chair and awake and appears comfortable. Exam Vital Signs (past 8 hours): Oxygen Delivery Method Room Air Oxygen Flow Rate 0 Narrative Exam Narrative: NAD. Lungs clear. Heart regular. Abdomen soft, ND. No leg edema. 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 Metabolic encephalopathy (likely from UTI), POA and improved. -comf 2. UTI, POA and improving. -UA with pyuria. -rocephin 1g x3 days. 3. Alzheimer's dementia, POA and active. -follow clinically. 4. COPD, POA and active. -usual medications. Discussed with and Ortho (Dr. Dean), will retract any comfort ideas and move goal to rehab efforts at a SNF ([facility]). Start DVT prophylaxis. Code status is DNR/DNI. Proxy is . The facilities asked that all medications be converted to oral dosing for the next 24 hours the patient is now placed on oral Ativan and morphine solution instead of IV. Dispo: Hospice at [facility], anticipated discharge is October 22. Quality VTE Deep Vein Thrombosis/Pulmonary Embolism Present on Admission: No
--- NOTE | 2023-10-21 17:16 | CM.DPNOTE ---
DCP Note MASTER SCHEDULER reviewed EMR. MASTER SCHEDULER spoke with Leeanne at , can accept tomorrow if 24hrs without IV meds in afternoon. MASTER SCHEDULER coordinated with PASSR coordinated Stacey- due to ativan being a comfort care measure no level 2 PASSR needed. Complete PASSR level 1 like normal. MASTER SCHEDULER spoke with RN and family at bedside. After conversation with RN, family preference is now home with increased PP CGs and hospice support. Spouse/son report they don't need hospice to open to take her home due to having hospital bed and caregivers already. Spouse/son agreeable to BLS transport- acknowledge there may be a bill with BLS and remain agreeable. MASTER SCHEDULER scheduled BLS transport with [facility] to take pt home. Medical necessity form completed by this MASTER SCHEDULER and provider. MASTER SCHEDULER spoke with Jeannie at [facility]. Agreed to attempt to schedule their opening as soon as possible and get back to this MASTER SCHEDULER. as of 5:20pm, no response on soonest available start date from [facility]. MASTER SCHEDULER told Leeanne at to cancel referral. Plan: pt will dc home with family and CG support, [facility] to follow, unclear as to when they can open. BLS arranged for 1329. CM team will continue to follow closely. GABY Benjamin
[2023-10-21] MEDS: LORazepam 2 MG/ML ORAL SOL 0.5 MG PO (19:33)
[2023-10-22] MEDS: MORPHINE 10 MG/0.5 ML ORAL SYRINGE PO ×3 (07:01→13:35)
[2023-10-22] MEDS: LORazepam 2 MG/ML ORAL SOL 1 MG PO ×2 (07:42→12:42)
[2023-10-22] MEDS: SODIUM CHLORIDE 0.9% FLUSH 10 ML IV (08:39)
--- NOTE | 2023-10-22 08:49 | CM.DPC ---
Addendum entered by Mary Nettles R.N. 10/22/23 12:56: Called [facility] to see if there is a time set up for tomorrow, spoke to Namita at [facility], indicated that they will see patient in the am, time not yet validated, she will let Juan C in referrals know so family can be updated. Will fax over the DC Summary. Addendum entered by Mary Nettles R.N. 10/22/23 11:40: After conversation with hospitalist and patient's spouse, he wants her to go home today. Dr. Churchill printed out hard copies of Lorazepam and Morphine. Called [facility] in [place], they can accept fax for Lorazepam, but MS has to be in hand. Did call sonAdina, and asked him to come by and crop picker prescriptions, did fax both copies to [facility]. Gave RXs to Sakshi, nurse, she ensure that son receives them when he arrives. Addendum entered by Mary Nettles R.N. 10/22/23 10:21: Spoke to sonAdina, his number is [phone]. He is concerned about his mother's discomfort when she goes home. Spouse, really wants her to go home, son worried that her moaning may upset he dad. Hospitalist, Dr. Churchill, feels that keeping patient another day may be in her best interest for pain control, but son indicated, his dad does not want her to pass here. Son will speak to his father, and see if he is willing to keep her another day. Will not yet cancel BLS. Original Note: DCP Cont: Patient is to be going home today with family, crop picker time is 1330. Did not have a POLST form as of yet, gave one to Dr. Churchill and asked him if he can complete with family. Copied BLS form and placed in for scanning, yellow original is in red folder with face sheet, pending POLST. Asked Dr. Churchill if he can provide scripts for some comfort meds. Patient has equipment at home. Called [facility], and updated Juan C in referrals. She stated that she would let Zeina in referrals know, they have some openings tomorrow. They will need a DC Summary upon discharge, nurse, Sakshi, is aware of plan. P: DCP to continue to follow. Plan at this time is home today with hospice services.
--- NOTE | 2023-10-22 10:21 | PM.PN.1 ---
Subjective Subjective Interval history: Patient is obtunded, on comfort care. She was said to be exhibiting symptoms of pain last evening when the family visited around 7:00 p.m.. Exam Vital Signs (past 8 hours): Oxygen Delivery Method Room Air Oxygen Flow Rate 0 Narrative Exam Narrative: She is obtunded. She appears comfortable this morning. Lungs are clear with normal rate and effort. Heart is regular, no murmur. Abdomen is nondistended. Extremities are free of edema. She has no spontaneous movement of arms or legs. She has no eye opening. 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 Metabolic encephalopathy (likely from UTI), POA and active, -comfort measures and initiation of hospice at [facility] on October 22. 2. UTI, POA and active, -UA with pyuria -rocephin 1g x3 days 3. Alzheimer's dementia, POA and active. -comfort measures 4. COPD, POA and active. -comfort measures Code status is DNR/DNI. DVT prophylaxis with nothing given comfort care. Proxy is . Son Jimbo does most of the communication and coordinate with father. The plan changed from facility to hospice at home as of October 21. We are according with the family and hospice to see if it is better to discharge her on October 22 versus October 23. It sounds as though hospice can not open till October 23 and there are some concerns about her level of pain control with her oral morphine. Quality VTE Deep Vein Thrombosis/Pulmonary Embolism Present on Admission: No
--- NOTE | 2023-10-22 12:11 | PM.DS.1 ---
History of Present Illness History of Present Illness Chief complaint: bed sores- hospice apt 10am Narrative: Caitlin Mcleod is an 88yo F with PMH of COPD and severe dementia who presents with worsening mental status. Patient is demented so history obtained from the son. He states his father who is 87yo has been caring for the patient for the last year after she has had a decline in mentation with worsening Alzheimer's. She has lost quite a bit of weight, but continues to eat when given food. Over the past few days her mentation has acutely worsened and she has been crying out, moaning and hallucinating. She was supposed to have hospice do an initial intake visit today at 10am, but she was brought to the ED before this. In the ED she was found to have a UTI. Family ok with IV abx to treat UTI and see if her mentation improves, but otherwise no escalation in care. Discharge Providers Provider Date of admission: 10/18/23 11:30 Discharge Date: 10/22/23 Primary care physician: Sheba Cavazos MD Consults: 10/18/23 07:37 Consult to [facility] [place] - Area Field Worker Stat Comment: home health 10/18/23 11:49 Consult to Discharge Planning Routine Comment: Consult to Hospice Referral Urgent Comment: Discharge provider: Nick Churchill MD Summary Hospital Course Discharge Diagnosis: 1. Metabolic encephalopathy (likely from UTI), POA and active, -comfort measures and initiation of hospice at home. 2. UTI, POA and active, -UA with pyuria -rocephin 1g x3 days, no home antibiotics. 3. Alzheimer's dementia, POA and active. -comfort measures 4. COPD, POA and active. -comfort measures Code status is DNR/DNI. Hospital Course: The patient was admitted with urinary tract infection initial discussions indicated that the family was considering comfort based care. I met with the family the next day and we had a lengthy discussion about goals of care and ultimately they did feel that comfort care was in her best interest. The patient essentially became obtunded within a short time of arrival to the hospital. She was treated with IV medication initially for discomfort and this was converted to oral solutions of morphine and Ativan 1 day prior to discharge. At the time of discharge she was obtunded and appeared comfortable. The patient's presented and signed a POLST. I did discuss the situation with the son, Jimbo. At this point she will return home and hospice is expected open within 1 day. They understand there will be a delay with hospice opening but still would like to take her home. Morphine oral solution and Ativan oral solution are provided at the time of discharge. Status at Discharge Cognitive/behavioral status at discharge: calm (Obtunded) Functional status at discharge: bed bound Overall status at discharge: other (Obtunded, comfort care. ) Exam Vital Signs (past 8 hours): Oxygen Delivery Method Room Air Oxygen Flow Rate 0 Narrative Exam Narrative: She is obtunded. She appears comfortable this morning. Lungs are clear with normal rate and effort. Heart is regular, no murmur. Abdomen is non-distended. Extremities are free of edema. She has no spontaneous movement of arms or legs. She has no eye opening. 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 BLS ambulance for transport. Discharge orders & Medications Prescriptions: New lorazepam [Lorazepam Intensol] 2 mg/mL Concentrate 1 mg PO Q4HR PRN (Reason: Anxiety) Qty: 20 0RF morphine concentrate 10 mg/0.5 mL Syringe 10 mg PO Q1HR PRN (Reason: Pain, Moderate (4-6)) Qty: 30 0RF Discontinued ascorbic acid (vitamin C) 500 MG tablet 1,000 mg PO QDAY Qty: 0 ergocalciferol (vitamin D2) 8,000 unit/mL Drops 1 ml PO DAILY tiotropium bromide [Spiriva with HandiHaler] 18 mcg Capsule, W/Inhalation Device 1 cap INHALATION DAILY albuterol sulfate 90 mcg/actuation Aerosol Powdr Breath Activated 2 puff INHALATION Q4H PRN (Reason: Bronchospasm) Serevent Diskus 50 mcg/dose Blister With Device 50 mcg INHALATION BID Culturelle 10 billion cell Capsule 1 cap PO DAILY metoprolol succinate 50 mg Tablet Extended Release 24 Hr 50 mg PO DAILY donepezil 5 mg tablet 5 mg PO DAILY oxycodone-acetaminophen 5-325 mg tablet 1 tab PO 4XD PRN (Reason: Pain (Scale Score 4-6)) tolterodine 2 mg tablet 2 mg PO BID fluticasone propionate [Flovent HFA] 110 mcg/actuation HFA aerosol inhaler 1 puff inhalation BID Medication counseling provided by Pharmacist: No Follow up/Referrals: Sheba Cavazos MD [Primary Care Provider] - Discharge Health Status Multidrug resistant organism: No MDRO Diet/Activity/Treatments Diet: Feed on demand Visit Report/Discharge Packet Stand Alone Forms: Patient Portal/API Discharge Data Primary Care Provider: Sheba Cavazos Quality VTE Deep Vein Thrombosis/Pulmonary Embolism Present on Admission: No MIPS - DC The patient has a history of heart transplant or Left Ventricular Assist Device (LVAD). If yes, STOP here.: No The patient has current or prior documentation of left ventricular ejection fraction (LVEF) less than or equal to 40%, or moderate or severely depressed left ventricular systolic function.: No
--- NOTE | 2023-10-22 15:03 | PC.NURSE ---
Patient is somnolent this a.m. softly moaning this a.m. after night RN administered PRN po morphine. Patient given PRN lorazepam with good effect. Patient soundly sleeping afterwards, appearing comfortable. Patient's arrived at bedside to talk with MD and sign POLST form. Patient's also spoke with CM and patient's son Prema. Plan for discharge home with home hospice today confirmed for 1330. EMS arrived with stretcher at 1330.
== END 2023-10-22 13:40 | disposition hospice, home (50) | DRG 689 ==
LOC: ED 11:28 → AC 10-19 10:33
PROVIDERS: Admitting Provider Student in an Organized Health Care Education/Training Program; Emergency Provider Emergency Medicine Emergency Medical Services; PCP Internal Medicine; Referring Provider Emergency Medicine Emergency Medical Services; Visit Provider Student in an Organized Health Care Education/Training Program
DX: N39.0 Urinary tract infection, site not specified (principal); G93.41 Metabolic encephalopathy; G30.9 Alzheimer's disease, unspecified; F02.C0 Dementia in other diseases classified elsewhere, severe, without behavioral disturbance, psychotic disturbance, mood disturbance, and anxiety; J44.9 Chronic obstructive pulmonary disease, unspecified; Z66 Do not resuscitate; Z51.5 Encounter for palliative care; Z87.891 Personal history of nicotine dependence
CPT/HCPCS: 36415; 51701; 80048; 80053; 81001; 82140; 83605; 83735; 84443; 85025; 85610; 87077; 87086; 93005; 96365; 96375; 99284; J0696; J2060; J2270